=== PATIENT | female | born 1940 | race Caucasian/White ===

== ENCOUNTER 2016-07-31 18:39 | Inpatient (IN) | payer MEDICARE, OTHER ==
[2016-07-31 19:12] LABS: Hematocrit 40.8 % (37.0-47.0); Mean Cell Volume 88.1 fl (78-100); Mean Corpuscular Hemoglobin 28.1 pg (27-31); Mean Corpuscular Hgb Conc 31.9 g/dl (32-36); Mean Platelet Volume 10.1 fl (6.0-9.5); Platelet Count 163 K/mm3 (150-450); Red Blood Count 4.63 M/mm3 (4.2-5.4); Red Cell Distribution Width 14.2 % (11.5-14.0); White Blood Count 15.9 K/mm3 (4.0-10.5)
[2016-07-31 19:15] LABS: Total Cells Counted 100
[2016-07-31 19:26] LABS: Atypical (Reactive) Lymph 1 % (0-2); Immature Granulocyte 3 (0-1); Lymphocyte 2 % (20-51); Monocyte 9 % (0-9); Neutrophil 85 % (42-75); Neutrophil # 13.5 K/mm3 (1.3-6.0); Platelet Estimate Normal (NORMAL)
[2016-07-31 19:27] LABS: RBC Morphology Normal (NORMAL)
[2016-07-31 19:28] LABS: Troponin I 0.019 ng/ml (0.00-0.10)
[2016-07-31 19:30] LABS: Albumin * 3.9 gm/dl (3.4-5.0); Anion Gap 9.8 mmol/L (6.8-13.8); BUN/Creatinine Ratio 14.6 (9.0-21.6); Bilirubin, Total 0.8 mg/dL (0.0-1.1); Ca. Corrected For Albumin 9.4 mg/dL (8.4-10.2); Calcium * 9.6 mg/dL (7.9-10.9); Carbon Dioxide 31.1 mmol/L (24-32.6); Potassium 3.9 mmol/L (3.4-4.6); Total Protein 7.6 gm/dL (6.2-8.2)
--- OUTSIDE RECORDS SUMMARY | 2016-07-31 19:53 | XMS REPORT | Continuity of Care Document ---
:1940 Author Organization [facility] ([facility]) Address [address] [place] [address] Phone [phone] Care Team Providers Name Role Phone Umair Crawford Primary Care Provider [phone] Source Comments This disclosure is being made pursuant to the Care Everywhere program, applicable federal and state laws, and may not contain all informaitonavailable regarding this patient.[facility] ([facility]) Active Allergies and Adverse Reactions Allergen Noted Date Severity Reactions Comments Pneumococcal Vaccine 06/11/2011 Angioedema,Rash Current Medications Prescription Sig. Disp. Refills Start Date End Date Status lisinopril 40 mg tablet Take 40 mg by mouth Active daily. citalopram 40 mg tablet Take 40 mg by mouth Active daily. atorvastatin 20 mg Take 20 mg by mouth Active tablet every evening. levothyroxine 75 mcg Take 75 mcg by mouth Active tablet every morning before breakfast. diltiazem 180 mg ER Take 180 mg by mouth Active capsule daily. tiotropium (SPIRIVA) 18 Use 18 mcg by Active mcg inhalation capsule inhalation daily. albuterol 90 Use 2 Puffs by Active mcg/Actuation inhaler inhalation every 4 hours as needed. VIT C/VIT Take 1 tablet by Active E/LUTEIN/MIN/OMEGA-3 mouth daily. (OCUVITE PO) multivitamin tablet Take 1 tablet by Active mouth daily. sodium chloride 0.9 % Flush catheter with 300 mL 11 09/13/2015 Active injection syringe 10 ml normal saline 1 time daily, push only. budesonide-formoterol Use 2 Puffs by Active (SYMBICORT) 160-4.5 inhalation every mcg/Actuation inhaler morning. ciprofloxacin HCl 250 Take 250 mg by mouth Active mg tablet 2 times daily. lactobacillus Take 1 tablet by Active acidophilus (BACID) 1 mouth 2 times daily. billion-250 cell-mg tablet Active Problems Problem Noted Date S/P cholecystectomy 11/23/2015 Morbid obesity 09/14/2015 Calculous cholecystitis with obstruction 09/11/2015 Hip pain 06/22/2011 Other physical therapy 06/22/2011 COPD (chronic obstructive pulmonary disease) 06/21/2011 Obesity, unspecified 06/21/2011 Essential hypertension 06/21/2011 Depression 06/21/2011 Other and unspecified hyperlipidemia 06/21/2011 Resolved Problems Problem Noted Date Resolved Date Post-op pain 11/24/2015 11/24/2015 Right upper quadrant abdominal pain 11/24/2015 11/24/2015 Obstructive jaundice 09/11/2015 09/15/2015 Immunizations Name Dates Previously Given Next Due Influenza, unspecified 06/03/2011 Social History Tobacco Use Types Packs/Day Years Used Date Former Smoker Cigarettes 1.5 30 Quit: 06/23/1985 Smokeless Tobacco: Never Used Alcohol Use Drinks/Week oz/Week Comments No Last Filed Vital Signs Vital Sign Reading Time Taken Blood Pressure 121/54 11/24/2015 12:00 PM CDT Pulse 70 11/24/2015 12:00 PM CDT Temperature 37.6 C (99.7 F) 11/24/2015 12:00 PM CDT Respiratory Rate 16 11/24/2015 12:00 PM CDT Height 1.651 m (5' 5") 12/04/2015 3:19 PM CDT Weight 87.15 kg (192 lb 2.1 oz) 12/04/2015 3:19 PM CDT Body Mass Index 31.97 12/04/2015 3:19 PM CDT Oxygen Saturation 95% 11/24/2015 12:00 PM CDT Plan of Care Health Maintenance Due Date Last Done Comments Hepatitis B Vaccine (1 of 3 - Primary Series) 1940 Tdap Vaccine 1949 Lipid Disorder Screening 1956 Td Vaccine 1956 Mammogram 1978 Colonoscopy 05/10/1988 Zoster Vaccine 1998 Osteoporosis Screening (DXA Bone Density) 2003 Influenza Vaccine: Seasonal (#1) 01/22/2016 06/03/2011 Results from Last 3 Months Not on file
[2016-07-31 20:56] LABS: Urine Bilirubin Negative (NEGATIVE); Urine Ketone Negative (NEGATIVE); Urine Nitrite Negative (NEGATIVE); Urine Protein 15 mg/dL (NEGATIVE); Urine Specific Gravity 1.025 SP.GR. (1.005-1.010); Urine Urobilinogen Normal (NORMAL)
--- NOTE | 2016-07-31 20:58 | ERNOTE ---
Dyspnea - Date Date of Service: 07/31/16 - General Presenting Symptoms: difficulty of breathing Time Seen by Provider: 07/31/16 19:41 Source: family, RN notes reviewed, old records Exam Limitations: clinical condition - Immun/Allergies/Home Medications Immunizations: IMMUNIZATION HX Immunizations Up to Date No History of Influenza Vaccine Yes Hx Pneumococcal Vaccination No Allergies/Adverse Reactions: Allergies metoprolol Adverse Reaction (Intermediate, Verified 05/07/16 12:07) DIZZINESS, DYSPNEA pneumococcal vaccine [Pneumococcal Vaccine] Adverse Reaction (Mild, Verified 12:07) RASH AT INJECTION SITE Home Medications: HOME MEDICATIONS Citalopram Hydrobromide [Citalopram HBr] 40 mg PO DAILY 06/22/12 [Last Taken ] Lisinopril 40 mg PO DAILY 06/22/12 [Last Taken 10/08/15] Atorvastatin Calcium [Lipitor] 20 mg PO DAILY 11/09/14 [Last Taken 10/07/15 21: 00] Beta-Carotene(A) W-C , E/Min [Ocuvite] 1 tab PO DAILY 11/09/14 [Last Taken 10/07] Budesonide/Formoterol Fumarate [Symbicort 160-4.5 Mcg Inhaler] 2 puff IH BID [Last Taken 10/08/15] Levothyroxine Sodium [Synthroid] 75 mcg PO DAILY 11/09/14 [Last Taken 10/08/15] Multivitamins [Multivitamin Bianca] 1 cap PO DAILY 11/09/14 [Last Taken 10/08/15 ] Acetaminophen [Tylenol] 650 mg PO Q6H PRN #30 tablet 09/23/15 [Last Taken Unknown] Diltiazem HCl [Cardizem Cd] 120 mg PO DAILY #30 cap 05/07/16 [Last Taken Unknown ] Albuterol Sulfate [Ventolin HFA] 1 puff IH Q6H 07/31/16 [Last Taken Unknown] Amox Tr/Potassium Clavulanate [Augmentin 875-125 Tablet] 875 mg PO Q12H [Last Taken Unknown] Ipratropium/Albuterol Sulfate [Combivent Respimat Inhal [place]] 1 puff IH QID 02/06 [Last Taken Unknown] predniSONE [Prednisone] 20 mg PO DAILY 07/31/16 [Last Taken Unknown] - History of Present Illness Narrative: Carrol is a 76 year old female brought to the ED by ambulance for shortness of breath. She has had URI symptoms for approximately a week and a half. She was seen by her PCP last week for her symptoms. She was treated for a COPD exacerbation with Augmentin and prednisone. Her reports that she has not been herself today. She has been lethargic but will respond to some questions.. She has had diarrhea today, and began vomiting this afternoon. Treatment [employer]: paramedics, oxygen Initiating event: Reports: upper resp illness Frequency of episodes: Reports: occassional episodes Prior Treatment: Reports: recently seen, treated by physician, currently on antibiotics Review of Systems - Review of Systems Constitutional: Present: fatigue, malaise, decreased activity level EYE: Present: no symptoms reported ENT: Present: no symptoms reported Respiratory: Present: shortness of breath, cough Cardiology: Absent: chest pain, syncope, edema Gastrointestinal/Abdominal: Present: nausea, vomiting, diarrhea, eating less, drinking less Genitourinary: Absent: dysuria, hematuria Musculoskeletal: Present: no symptoms reported Skin: Absent: lesions, change in color Neurological: Absent: seizure, weakness Endocrine: Present: no symptoms reported Hematologic/Lymphatic: Absent: easy bruising, easy bleeding Psych: Present: no symptoms reported - Patient's Past Medical History Patient History - Medical: Depression, Fibromyalgia, Hypothyroidism Patient History - Cardiac/Respiratory: CHF, COPD, Hypertension, Hyperlipidemia Patient History - Cancer: Lung, Cervical Patient History - Surgical Procedures: Appendectomy, Cholecystectomy, Colonoscopy, Hysterectomy, Total Hip Replacement, Other - JOEL, Kyphoplasty, Left lung resection, submandibular gland removed Patient History - Other: None LMP (females 10-50): Menopausal - Family History Mother Family History - Medical: , No pertinent hx Family History - Cardiac/Respiratory: CHF Father Family History - Medical: , No pertinent hx Family History - Cardiac/Respiratory: No pertinent hx - Social History Living Situations: spouse Abuse History: No History of abuse Psych History: No pertinent hx Smoking Status: Former smoker Have you smoked in the past 12 months: No Alcohol Use: none Drug Use: none - Immunizations Immunizations Up to Date: No Hx Pneumococcal Vaccination: No - HX allergic reaction History of Influenza Vaccine: Yes Physical Exam - Physical Exam General Appearance: Present: no apparent distress, lethargic, obese Eye Exam: Normal inspection: bilateral, PERRL: bilateral Neck: Present: normal inspection, nontender, supple Respiratory: Present: no respiratory distress, no accessory muscle use, decreased breath sounds, rhonchi - scattered bilaterally Cardiovascular/Chest: Present: no murmur, normal peripheral pulses, irregularly irregular Gastrointestinal/Abdominal: Present: normal bowel sounds, nontender, nondistended, soft Extremity Exam: Present: normal inspection, non-tender, no edema Neurological Exam: Present: other - sleeps when not disturbed but will awaken and answer some questions appropriately Skin Exam: Present: normal color, warm/dry ED Progress - Results and Orders Patient's Lab Results:: I have reviewed the patient's lab results. - Vital Signs Patient's Vital Signs:: I have reviewed the patient's vital signs. Vital Signs: Vital Signs 07/31/16 07/31/16 07/31/16 18:42 19:01 20:19 Temperature 38.8 C H Pulse Rate 74 90 77 Respiratory 15 10 L 32 H Rate Blood Pressure 212/78 177/67 O2 Sat by Pulse 94 93 93 Oximetry 07/31/16 20:46 Temperature 39.0 C H Pulse Rate 76 Respiratory 16 Rate Blood Pressure 177/63 O2 Sat by Pulse 95 Oximetry - EKG EKG: atrial fibrillation EKG read: Reviewed by me - X-Ray X-Ray #1 X-Ray: chest Interpretation: Reviewed by me X-ray Comments: Technique: Chest Single View * Findings: Reidentified cardiomegaly. There is central vascular engorgement. There is cephalization. There is prominence of the interstitium compatible with edema. There are likely small bilateral pleural effusions. No pneumothorax. Osseous structures are intact. IMPRESSION: 1. Correlate for CHF/fluid overload. Electronically signed by Montana Larson M.D.. - Progress/Reassessment Chief Complaint: Dyspnea Plan - Plan Plan: Admission for observation discussed with Kaitlin Heller NP. Patient has significant fever and leukocytosis without a clear cause. She has been on prednisone for a COPD exacerbation, as well as Augmentin. Her chest xray does show some CHF. Her BNP is up to 1700 from 1500 on 07/24/16. UA is unremarkable. Negative influenza. Vomiting and diarrhea may be d/t a viral gastroenteritis as this has been prevalent in the community. LFT's are also elevated without a clear cause. Departure Clinical Impression: Vomiting and diarrhea, Fever of unknown origin - Departure Disposition: [facility] Condition: Fair
[2016-07-31 21:18] LABS: Urine Appearance Clear; Urine Bacteria TRACE; Urine Blood 10 /ul (NEGATIVE); Urine Color Yellow; Urine RBC None Seen /hpf (0-5); Urine WBC None Seen /hpf (0-5)
--- OUTSIDE RECORDS SUMMARY | 2016-07-31 21:53 | XMS REPORT | Continuity of Care Document ---
:1940 Author Organization [facility] ([facility]) Address [address] [place] [address] Phone [phone] Care Team Providers Name Role Phone Umair Crawford Primary Care Provider [phone] Source Comments This disclosure is being made pursuant to the Care Everywhere program, applicable federal and state laws, and may not contain all informaitonavailable regarding this patient.[facility] ([facility]) Active Allergies and Adverse Reactions Allergen [...]
[2016-07-31] MEDS ORDERED: NORMAL SALINE 1,000 ML IV PRN (22:53)
[2016-07-31] MEDS ORDERED: ONDANSETRON HCL/PF 2 MG/ML VIAL IV PRN (23:10)
[2016-07-31] MEDS ORDERED: LEVOFLOXACIN/D5W 750 MG/150 ML BAG IV SCH (23:30)
[2016-07-31] MEDS: ALBUTEROL SULFATE/IPRATROPIUM 3 ML NEBU IH SCH (23:36)
[2016-07-31] MEDS: ACETAMINOPHEN 325 MG TABLET PO PRN (23:50)
[2016-07-31] MEDS: METHYLPREDNISOLONE SOD SUCC 60 MG in WATER FOR INJ.,BACTERIOSTATIC 0 ML IV SCH (23:53)
--- NOTE | 2016-08-01 00:24 | HP ---
Chief Complaint - Chief Complaint Date of Service: 07/31/16 Time of Service: 23:39 Chief Complaint: 'AMS, Coughing, Fever'. Source of HPI- Pt; unreliable, Pt's spouse Niraj, ER provider report. History of Present Illness: Mrs. Bergeron is a 76-yr-old [facility] pt of Dr. Umair Crawford with a PMH of: COPD, Depression, Fibromylagia, HTN, HLD & Osteoathritis. History of illness is obtained from pt's Niraj & pt's EMR as pt appears to be cognitively impaired and cannot engage in a conversation to state how she feels. Pt was seen by Dr. Garcia on 07/24/16 with complaints of SOB, productive coughing & Wheezing that has gone on x 5 days. She was treated with Rocephin 1 gram and was discharged with Augmentin 875-125mg q 12 x 10 days and Prednisone 20mg x 10 days. Niraj states that the pt seemed to improve initially after taking the medication as prescribed, but her SOB has remained nearly the same. She is normally on 2 L of oxygen at night, but Niraj says that at least 3 times since being seen at the clinic, he has helped the pt wear the oxygen during the day due to visible shortness of breath. She has also had up to 3 loose stools daily for the last 3 days.Today at around noon, pt suddenly stopped being conversant and wanted to lay down in bed. At around 5.00 pm, Niraj states that the pt started coughing very hard and when he checked on her, she appeared very pale and felt hot to touch. She also vomited during that episode. He called the EMS and the pt was brought to the [facility] ER. During evaluation at the ED, the CXR had findings consistent with Pulmonary Edema. She was also febrile with a temp of 38.8 and had elevated WBC of 15,800 with a Left Shift. At the time of physical examination, pt appears to be visibly SOB, is noted to have Laboured breathing with Expiratory wheezing throughout the lung stark. She will need to be admitted inpatient for a minimum of 2 midnights or more due to failure to outpatient treatment for COPD exacerbation. - Patient's Past Medical History Patient History - Medical: Depression, Fibromyalgia, Hypothyroidism, Obesity, Osteoarthritis Patient History - Cardiac/Respiratory: CHF, COPD, Hypertension, Hyperlipidemia, Home O2 Use Patient History - Cancer: Lung, Cervical Patient History - Surgical Procedures: Appendectomy, Cataracts, Cholecystectomy , Colonoscopy, Hysterectomy, Total Hip Replacement, T & A, Other Patient History - Other: None LMP (females 10-50): Menopausal - Family History Mother Family History - Medical: , No pertinent hx Family History - Cardiac/Respiratory: CHF Family History - Cancer: No pertinent family hx Father Family History - Medical: , No pertinent hx Family History - Cardiac/Respiratory: No pertinent hx Family History - Cancer: Stomach - Social History Living Situations: spouse Abuse History: No History of abuse Psych History: Hx of Depression Smoking Status: Former smoker Have you smoked in the past 12 months: No Do you dip or chew tobacco: No Alcohol Use: none Drug Use: none - Immunizations Immunizations Up to Date: No Hx Pneumococcal Vaccination: No - HX allergic reaction History of Influenza Vaccine: Yes Review Of Systems (GEN) - Review of Systems Additional Comments: ROS unobtainable due to AMS. Immunizations: IMMUNIZATION HX Immunizations Up to Date No History of Influenza Vaccine Yes Hx Pneumococcal Vaccination No - HX allergic reaction Allergies/Adverse Reactions: Allergies Allergy/AdvReac Type Severity Reaction Status Date / Time metoprolol AdvReac Intermediate DIZZINESS, Verified 07/31/16 23:27 DYSPNEA pneumococcal vaccine AdvReac Mild RASH AT Verified 07/31/16 23:27 [Pneumococcal Vaccine] INJECTION SITE Home Medications: HOME MEDICATIONS Citalopram Hydrobromide [Citalopram HBr] 40 mg PO DAILY 06/22/12 [Last Taken ] Lisinopril 40 mg PO DAILY 06/22/12 [Last Taken 10/08/15] Atorvastatin Calcium [Lipitor] 20 mg PO DAILY 11/09/14 [Last Taken 10/07/15 21: 00] Beta-Carotene(A) W-C , E/Min [Ocuvite] 1 tab PO DAILY 11/09/14 [Last Taken 10/07] Budesonide/Formoterol Fumarate [Symbicort 160-4.5 Mcg Inhaler] 2 puff IH BID [Last Taken 10/08/15] Levothyroxine Sodium [Synthroid] 75 mcg PO DAILY 11/09/14 [Last Taken 10/08/15] Multivitamins [Multivitamin Bianca] 1 cap PO DAILY 11/09/14 [Last Taken 10/08/15 ] Acetaminophen [Tylenol] 650 mg PO Q6H PRN #30 tablet 09/23/15 [Last Taken Unknown] Albuterol Sulfate [Ventolin HFA] 1 puff IH Q6H 07/31/16 [Last Taken Unknown] Amox Tr/Potassium Clavulanate [Augmentin 875-125 Tablet] 875 mg PO Q12H [Last Taken Unknown] Diltiazem HCl [Cardizem Cd] 180 mg PO DAILY 07/31/16 [Last Taken Unknown] Ipratropium/Albuterol Sulfate [Combivent Respimat Inhal [place]] 1 puff IH QID 02/06 [Last Taken Unknown] predniSONE [Prednisone] 20 mg PO DAILY 07/31/16 [Last Taken Unknown] Exam - Exam Vital Signs: Vital Signs - Last Taken Temp 38 C H 07/31/16 22:53 Pulse 71 07/31/16 23:36 Resp 24 H 07/31/16 23:36 BP 178/68 07/31/16 22:53 Pulse Ox 96 07/31/16 23:36 Constitutional: Present: Alert, Mild distress, Other - unable to engage in conversation, answers to yes or no questions. ENT Exam: Present: normal ENT inspection, dry mucous membranes Eye Exam: bilateral eye: normal inspection, PERRL Neck: Present: full range of motion, supple, normal inspection Back Exam: Present: normal inspection Respiratory: Present: accessory muscle use, wheezing, expiration (prolonged) Cardiovascular/Chest: Present: regular rate, rhythm, no murmur Abdomen: Present: Normal bowel sounds, soft, nontender, high pitched bowel sounds /Rectal: Present: Exam deferred Extremity: Present: normal inspection, no pedal edema, no calf tenderness Skin Exam: Present: warm/dry, no cyanosis Lymphatic: Present: no adenopathy Neurologic: Present: alert, other - Flat affect, responds to name only and to "yes or no" Appearance: Present: impaired insight Eye contact: Present: other Thoughts: Present: no apparent hallucination Diagnostic Studies: Laboratory Results WBC 15.9 K/mm3 (4.0-10.5) H 07/31/16 19:05 RBC 4.63 M/mm3 (4.2-5.4) 07/31/16 19:05 Hgb 13.0 gm/dL (12.5-16.0) 07/31/16 19:05 Hct 40.8 % (37.0-47.0) 07/31/16 19:05 MCV 88.1 fl (78-100) 07/31/16 19:05 MCH 28.1 pg (27-31) 07/31/16 19:05 MCHC 31.9 g/dl (32-36) L 07/31/16 19:05 RDW 14.2 % (11.5-14.0) H 07/31/16 19:05 Plt Count 163 K/mm3 (150-450) 07/31/16 19:05 MPV 10.1 fl (6.0-9.5) H 07/31/16 19:05 Neutrophils % (Manual) 85 % (42-75) H 07/31/16 19:05 Lymphocytes % (Manual) 2 % (20-51) L 07/31/16 19:05 Monocytes % (Manual) 9 % (0-9) 07/31/16 19:05 Immature Granulocytes 3 (0-1) H 07/31/16 19:05 Neutrophils # (Manual) 13.5 K/mm3 (1.3-6.0) H 07/31/16 19:05 Lymphocytes # (Manual) 0.3 k/mm3 (1.5-3.5) L 07/31/16 19:05 Monocytes # (Manual) 1.4 k/mm3 (0.0-1.0) H 07/31/16 19:05 Atypic/Reactive Lymphs 1 % (0-2) 07/31/16 19:05 Platelet Estimate Normal (NORMAL) 07/31/16 19:05 RBC Morphology Normal (NORMAL) 07/31/16 19:05 Sodium 140 mmol/L (132-142) 07/31/16 19:05 Plasma Sodium 141 mmol/L (130-142) 07/31/16 19:05 Potassium 3.9 mmol/L (3.4-4.6) 07/31/16 19:05 Chloride 103 mmol/L (97-106) 07/31/16 19:05 Carbon Dioxide 31.1 mmol/L (24-32.6) 07/31/16 19:05 Anion Gap 9.8 mmol/L (6.8-13.8) 07/31/16 19:05 BUN 19 mg/dL (3-23) 07/31/16 19:05 Creatinine 1.30 mg/dL (0.4-1.4) 07/31/16 19:05 Est GFR (Non-Af Amer) 42 mL/min (60-130) L D 07/31/16 19:05 BUN/Creatinine Ratio 14.6 (9.0-21.6) 07/31/16 19:05 Random Glucose 133 mg/dL (70-110) H 07/31/16 19:05 Lactic Acid, Venous 1.6 mmol/L (0.4-2.0) 07/31/16 19:05 Calcium 9.6 mg/dL (7.9-10.9) 07/31/16 19:05 Calcium Adj for Albumin 9.4 mg/dL (8.4-10.2) 07/31/16 19:05 Total Bilirubin 0.8 mg/dL (0.0-1.1) 07/31/16 19:05 GGT 398 U/L (4-104) H 07/31/16 19:05 AST 306 U/L (0-48) H 07/31/16 19:05 ALT 757 U/L (19-67) H 07/31/16 19:05 Alkaline Phosphatase 183 U/L (50-170) H 07/31/16 19:05 Troponin I 0.019 ng/ml (0.00-0.10) 07/31/16 19:05 B-Natriuretic Peptide 1725 pg/mL (5-550) H 07/31/16 19:05 Total Protein 7.6 gm/dL (6.2-8.2) 07/31/16 19:05 Albumin 3.9 gm/dl (3.4-5.0) 07/31/16 19:05 Urine Color Yellow 07/31/16 19:57 Urine Appearance Clear 07/31/16 19:57 Urine pH 6.0 pH (5.0-7.0) 07/31/16 19:57 Ur Specific [place] 1.025 SP.GR. (1.005-1.010) 07/31/16 19:57 Urine Protein 15 mg/dL (NEGATIVE) H 07/31/16 19:57 Urine Glucose (UA) Negative mg/dL (NEGATIVE) 07/31/16 19:57 Urine Ketones Negative mg/dL (NEGATIVE) 07/31/16 19:57 Urine Blood 10 /ul (NEGATIVE) H 07/31/16 19:57 Urine Nitrate Negative (NEGATIVE) 07/31/16 19:57 Urine Bilirubin Negative mg/dl (NEGATIVE) 07/31/16 19:57 Prot Sulfosalicylic Acd Negative mg/dL (0) 07/31/16 19:57 Urine Urobilinogen Normal EU/dl (NORMAL) 07/31/16 19:57 Ur Leukocyte Esterase Negative /ul (NEGATIVE) 07/31/16 19:57 Urine RBC None seen /hpf (0-5) 07/31/16 19:57 Urine WBC None seen /hpf (0-5) 07/31/16 19:57 Ur Epithelial Cells None seen /hpf (0-5) 07/31/16 19:57 Urine Bacteria Trace (NONE) 07/31/16 19:57 Urine Culture Comments Culture to follow 07/31/16 19:57 Influenza Type A Ag Negative (NEGATIVE) 07/31/16 19:05 Influenza Type B Ag Negative (NEGATIVE) 07/31/16 19:05 Assessment/Plan - Assessment/Plan (1) COPD exacerbation Assessment: Mrs. Bergeron presented to the clinic on 07/24/16 with symptoms involving SOB, Coughing & Wheezing. She received treatment with Rocephin IM and was discharged on Amoxicilin, Prednisone. However, according to the report, the pt has not shown much of improvement with her SOB. The pt appears to have worsening symptoms COPD from her baseline (Dyspnea , Coughing). Will treat with scheduled Duonebs and IV Solumedrol due to the expiratory wheezing. Antibiotics are strongly recommended so will cover with Levaquin 750mg daily- Pharmacy to manage dose. Monitor labs in am. Problem: Acute (2) Elevated liver enzymes Assessment: Consider US of the liver & if normal, rule out infectious hepatitis. Problem: Acute (3) CHF (congestive heart failure) Assessment: Pt is showing clinical signs of HF; elevated BNP, SOB & Pulmonary edema on CXR. Consider Diuresis with Lasix, may need Echocardiogram also. Problem: Suspected (4) Altered mental state Problem: Acute (5) HTN (hypertension) Problem: Chronic Qualifiers: Hypertension type: essential hypertension Qualified Code(s): I10 - Essential (primary) hypertension (6) HLD (hyperlipidemia) Problem: Acute (7) HLD (hyperlipidemia) Problem: Chronic (8) Depression Problem: Chronic (9) Fibromyalgia Problem: Chronic
[2016-08-01] MEDS: ALBUTEROL SULFATE/IPRATROPIUM 3 ML NEBU IH SCH ×6 (02:09→23:43)
[2016-08-01] MEDS ORDERED: ACETAMINOPHEN 325 MG TABLET PO PRN (03:41)
[2016-08-01] MEDS: METHYLPREDNISOLONE SOD SUCC 60 MG in WATER FOR INJ.,BACTERIOSTATIC 0 ML IV SCH ×4 (04:53→23:57)
[2016-08-01 05:58] LABS: Hematocrit 37.7 % (37.0-47.0); Mean Cell Volume 87.1 fl (78-100); Mean Corpuscular Hemoglobin 27.7 pg (27-31); Mean Corpuscular Hgb Conc 31.8 g/dl (32-36); Mean Platelet Volume 10.9 fl (6.0-9.5); Platelet Count 158 K/mm3 (150-450); Red Blood Count 4.33 M/mm3 (4.2-5.4); Red Cell Distribution Width 14.2 % (11.5-14.0); White Blood Count 31.5 K/mm3 (4.0-10.5)
[2016-08-01 06:06] LABS: Total Cells Counted 100
[2016-08-01 06:12] LABS: Anion Gap 14.1 mmol/L (6.8-13.8); BUN/Creatinine Ratio 18.4 (9.0-21.6); Carbon Dioxide 27.1 mmol/L (24-32.6); Estimated Creat Clear 29.2; Potassium 4.2 mmol/L (3.4-4.6)
[2016-08-01 06:13] LABS: Neutrophil 79 % (42-75)
[2016-08-01 06:14] LABS: Band 9 % (0-2.0); Hypersegmented Polys 3+; Lymphocyte 3 % (20-51); Monocyte 9 % (0-9); Neutrophil # 24.9 K/mm3 (1.3-6.0); Platelet Estimate Normal (NORMAL); Rouleaux 2+; Toxic Granulation 2+
[2016-08-01 06:18] LABS: INR 1.11 INR (0.90-1.10); Prothrombin Time (Patient) 11.5 Seconds (9.4-11.4)
[2016-08-01 06:48] LABS: Albumin * 3.2 gm/dl (3.4-5.0); Bilirubin Direct 0.3 mg/dL (0.0-0.3); Bilirubin, Total 0.7 mg/dL (0.0-1.1); Bilirubin,Indirect 0.4 mg/dL (0.1-0.7); Total Protein 6.9 gm/dL (6.2-8.2)
[2016-08-01] MEDS: LEVOTHYROXINE SODIUM 75 MCG TABLET PO SCH (06:55)
[2016-08-01] MEDS ORDERED: FUROSEMIDE 10 MG/ML VIAL IV ONE (08:00)
[2016-08-01 08:17] LABS: Chol/HDL Risk Ratio 1.5 mg/dL (3.3-4.4)
--- NOTE | 2016-08-01 08:53 | PN ---
Subjective - Date and Time Seen Date: 08/01/16 Time: 08:42 Subjective Narrative: Patient is more alert this morning. She says she does not remember most of the day yesterday . Objective - Review of Systems Generalized/Overall Review: Reports: Weakness, Fever EENTM: Reports: No Symptoms Reported Respiratory: Reports: Cough, Shortness of Breath, Wheezing Cardiac: Denies: Chest Pain, Edema, Palpitations Abdominal: Reports: Nausea, Vomiting, Diarrhea Genitourinary Symptoms: Denies: Urgency, Frequency Neurological: Reports: Other - can't remember most of th day yesterday - Vitals Vitals: Last Vital Signs Temp 36.8 C 08/01/16 07:40 Pulse 73 08/01/16 07:40 Resp 24 H 08/01/16 07:40 BP 140/51 08/01/16 07:40 Pulse Ox 98 08/01/16 07:40 - Abnormal Lab Findings Abnormal Lab Findings: Abnormal Lab Results 08/01/16 08/01/16 08/01/16 Range/Units 05:36 05:36 05:36 WBC 31.5 H D (4.0-10.5) K/mm3 Hgb 12.0 L (12.5-16.0) gm/dL MCHC 31.8 L (32-36) g/dl RDW 14.2 H (11.5-14.0) % MPV 10.9 H (6.0-9.5) fl Neutrophils % (Manual) 79 H (42-75) % Band Neuts % (Manual) 9 H (0-2.0) % Lymphocytes % (Manual) 3 L (20-51) % Neutrophils # (Manual) 24.9 H (1.3-6.0) K/mm3 Lymphocytes # (Manual) 0.9 L (1.5-3.5) k/mm3 Monocytes # (Manual) 2.8 H (0.0-1.0) k/mm3 PT 11.5 H (9.4-11.4) Seconds INR (Anticoag Therapy) 1.11 H (0.90-1.10) INR Anion Gap 14.1 H (6.8-13.8) mmol/L Est GFR (Non-Af Amer) 49 L (60-130) mL/min Random Glucose 147 H (70-110) mg/dL AST (0-48) U/L ALT (19-67) U/L Albumin (3.4-5.0) gm/dl LDL Cholesterol (70-130) mg/dL HDL Cholesterol (40-60) mg/dL Cholesterol/HDL Ratio (3.3-4.4) mg/dL 08/01/16 08/01/16 Range/Units 05:36 05:36 WBC (4.0-10.5) K/mm3 Hgb (12.5-16.0) gm/dL MCHC (32-36) g/dl RDW (11.5-14.0) % MPV (6.0-9.5) fl Neutrophils % (Manual) (42-75) % Band Neuts % (Manual) (0-2.0) % Lymphocytes % (Manual) (20-51) % Neutrophils # (Manual) (1.3-6.0) K/mm3 Lymphocytes # (Manual) (1.5-3.5) k/mm3 Monocytes # (Manual) (0.0-1.0) k/mm3 PT (9.4-11.4) Seconds INR (Anticoag Therapy) (0.90-1.10) INR Anion Gap (6.8-13.8) mmol/L Est GFR (Non-Af Amer) (60-130) mL/min Random Glucose (70-110) mg/dL AST 160 H (0-48) U/L ALT 556 H (19-67) U/L Albumin 3.2 L (3.4-5.0) gm/dl LDL Cholesterol 45 L (70-130) mg/dL HDL Cholesterol 102 H (40-60) mg/dL Cholesterol/HDL Ratio 1.5 L (3.3-4.4) mg/dL - Exam Constitutional: Present: Alert, Oriented x3, Cooperative, Elderly ENT Exam: Present: hearing grossly normal Neck: Present: supple Breasts: Present: Exam deferred Respiratory: Present: decreased breath sounds, rales, wheezing - ocassional Cardiovascular/Chest: Present: regular rate, rhythm, no JVD, no murmur Abdomen: Present: Normal bowel sounds, soft, nontender, nondistended Extremity: Present: no calf tenderness, pedal edema - trace Assessment/Plan - Problems/Diagnosis (1) COPD with acute exacerbation Problem: Acute Narrative: acute bronchits vs beginning pneumonia. continue with IV antibiotics, IV solumedrol and breathing treatments. will do a follow up CXR in the morning (2) Acute CHF (congestive heart failure) Problem: Acute Qualifiers: Congestive heart failure type: unspecified congestive heart failure type Qualified Code(s): I50.9 - Heart failure, unspecified Narrative: likely from pulmonary strain. will get Echo . with cardiomegaly likely diastolic. continue with IV lasix. (3) Elevated liver enzymes Problem: Acute Narrative: passive congestion of liver vs infectious. will do US and ad hepatitis panel. possible MRCP if ducts are overly dilated than usual postcholecystectomy. (4) Altered mental state Problem: Acute Qualifiers: Altered mental status type: delirium Qualified Code(s): R41.0 - Disorientation, unspecified Narrative: likley due to delirium form fever r/o acute toxic encephalopathy from septicemia (5) Leukocytosis Problem: Acute Qualifiers: Leukocytosis type: bandemia Qualified Code(s): D72.825 - Bandemia Narrative: likely infectious- pulmonary vs hepatobiliary. US of the abdomen and probable CTS or MRCP pending results and results of repeat LFT's. repeat CXR in the morning. send stool for C.Diff. await BC results.
[2016-08-01] MEDS ORDERED: metroNIDAZOLE/SODIUM CHLORIDE 500 MG/100 ML BAG IV SCH (09:00)
[2016-08-01] MEDS: BETA-CAROTENE(A) W-C , E/MIN 1 TAB TABLET PO SCH (09:45)
[2016-08-01] MEDS: MULTIVITAMINS 1 CAP CAPSULE PO SCH (09:45)
[2016-08-01] MEDS: POTASSIUM CHLORIDE 20 MEQ TABLET.SA PO SCH ×2 (09:46→17:52)
[2016-08-01] MEDS: CITALOPRAM HYDROBROMIDE 20 MG TABLET PO SCH (09:50)
[2016-08-01] MEDS: LISINOPRIL 40 MG TABLET PO SCH (09:51)
[2016-08-01] MEDS: DILTIAZEM HCL 180 MG CAP.SR.24H PO SCH (09:52)
[2016-08-01] MEDS: ENOXAPARIN SODIUM 30 MG/0.3 ML SYRG SC SCH (09:53)
[2016-08-01] MEDS: metroNIDAZOLE/SODIUM CHLORIDE 500 MG/100 ML BAG IV SCH ×2 (10:21→17:53)
[2016-08-01 15:28] LABS: Amylase * 30 U/L (25-115); Lipase 133 U/L (73-393)
[2016-08-01] MEDS: ROSUVASTATIN CALCIUM 10 MG TABLET PO SCH (20:57)
[2016-08-02] MEDS: ALBUTEROL SULFATE/IPRATROPIUM 3 ML NEBU IH SCH ×6 (02:36→22:30)
[2016-08-02] MEDS: metroNIDAZOLE/SODIUM CHLORIDE 500 MG/100 ML BAG IV SCH ×3 (02:52→17:34)
[2016-08-02] MEDS: METHYLPREDNISOLONE SOD SUCC 60 MG in WATER FOR INJ.,BACTERIOSTATIC 0 ML IV SCH ×4 (04:52→23:07)
[2016-08-02 05:55] LABS: Hematocrit 37.4 % (37.0-47.0); Hemoglobin 11.9 gm/dL (12.5-16.0); Mean Corpuscular Hemoglobin 27.7 pg (27-31); Mean Corpuscular Hgb Conc 31.8 g/dl (32-36); Mean Platelet Volume 11.3 fl (6.0-9.5); Platelet Count 173 K/mm3 (150-450); Red Cell Distribution Width 14.6 % (11.5-14.0); White Blood Count 19.6 K/mm3 (4.0-10.5)
[2016-08-02 06:06] LABS: Total Cells Counted 100
[2016-08-02 06:22] LABS: Albumin * 3.3 gm/dl (3.4-5.0); Anion Gap 13.8 mmol/L (6.8-13.8); BUN/Creatinine Ratio 25.9 (9.0-21.6); Bilirubin, Total 0.5 mg/dL (0.0-1.1); Ca. Corrected For Albumin 9.6 mg/dL (8.4-10.2); Calcium * 9.4 mg/dL (7.9-10.9); Potassium 3.8 mmol/L (3.4-4.6); Total Protein 7.2 gm/dL (6.2-8.2)
[2016-08-02 06:24] LABS: Band 4 % (0-2.0); Lymphocyte 4 % (20-51); Monocyte 2 % (0-9); Neutrophil 90 % (42-75); Neutrophil # 17.6 K/mm3 (1.3-6.0); Platelet Estimate Normal (NORMAL); RBC Morphology Normal (NORMAL)
[2016-08-02] MEDS: LEVOTHYROXINE SODIUM 75 MCG TABLET PO SCH (07:07)
--- NOTE | 2016-08-02 08:21 | PN ---
Subjective - Date and Time Seen Date: 08/02/16 Time: 08:13 Subjective Narrative: She is feeling much better. At least she recognized mr she says. Objective - Review of Systems Generalized/Overall Review: Denies: Fever EENTM: Reports: No Symptoms Reported Respiratory: Reports: Cough, Shortness of Breath Cardiac: Denies: Chest Pain, Edema, Palpitations Abdominal: Denies: Nausea, Vomiting Genitourinary Symptoms: Denies: Urgency, Frequency Musculoskeletal Complaints: Reports: Joint Pain - Vitals Vitals: Last Vital Signs Temp 36.7 C 08/02/16 08:00 Pulse 74 08/02/16 08:00 Resp 20 08/02/16 08:00 BP 146/56 08/02/16 08:00 Pulse Ox 92 08/02/16 08:00 - Abnormal Lab Findings Abnormal Lab Findings: Abnormal Lab Results 08/02/16 08/02/16 Range/Units 05:29 05:29 WBC 19.6 H D (4.0-10.5) K/mm3 Hgb 11.9 L (12.5-16.0) gm/dL MCHC 31.8 L (32-36) g/dl RDW 14.6 H (11.5-14.0) % MPV 11.3 H (6.0-9.5) fl Neutrophils % (Manual) 90 H (42-75) % Band Neuts % (Manual) 4 H (0-2.0) % Lymphocytes % (Manual) 4 L (20-51) % Neutrophils # (Manual) 17.6 H (1.3-6.0) K/mm3 Lymphocytes # (Manual) 0.8 L (1.5-3.5) k/mm3 BUN 28 H (3-23) mg/dL Est GFR (Non-Af Amer) 52 L (60-130) mL/min BUN/Creatinine Ratio 25.9 H (9.0-21.6) Random Glucose 175 H (70-110) mg/dL AST 76 H (0-48) U/L ALT 407 H (19-67) U/L Albumin 3.3 L (3.4-5.0) gm/dl - Exam Constitutional: Present: Alert, Oriented x3, Cooperative ENT Exam: Present: hearing grossly normal Neck: Present: supple Breasts: Present: Exam deferred Respiratory: Present: decreased breath sounds, No rales, No wheezing Cardiovascular/Chest: Present: regular rate, rhythm, no JVD, no murmur Abdomen: Present: Normal bowel sounds, soft, nontender, nondistended Extremity: Present: no pedal edema, no calf tenderness Assessment/Plan - Problems/Diagnosis (1) COPD with acute exacerbation Problem: Acute Narrative: improved (2) Acute CHF (congestive heart failure) Problem: Acute Qualifiers: Congestive heart failure type: unspecified congestive heart failure type Qualified Code(s): I50.9 - Heart failure, unspecified Narrative: CXR with siginificant interval improvement. Echo showed normal EF, diastolic dysfunction, , mild LVH, LAE, mild MR/TR, RSVP of 42 , Pulmonary hyperternsion. (3) Elevated liver enzymes Problem: Acute Narrative: improving (4) Altered mental state Problem: Resolved Qualifiers: Altered mental status type: transient alteration of awareness Qualified Code(s): R40.4 - Transient alteration of awareness Narrative: due to acute toxic encephalopathy (5) Leukocytosis Problem: Acute Qualifiers: Leukocytosis type: bandemia Qualified Code(s): D72.825 - Bandemia Narrative: down to 19.6 from 31.5 (6) Bacteremia Problem: Acute Narrative: s/p septicemia. BC x 2 bottles growing Gram negative rods. source? pulmonary vs hepatobilary.
[2016-08-02] MEDS: CEFEPIME HCL 1 GM in DEXTROSE 5 % IN WATER 100 ML IV SCH ×4 (09:34→21:20)
[2016-08-02] MEDS: DILTIAZEM HCL 180 MG CAP.SR.24H PO SCH (09:34)
[2016-08-02] MEDS: MULTIVITAMINS 1 CAP CAPSULE PO SCH (09:35)
[2016-08-02] MEDS: POTASSIUM CHLORIDE 20 MEQ TABLET.SA PO SCH ×2 (09:35→17:35)
[2016-08-02] MEDS: ENOXAPARIN SODIUM 30 MG/0.3 ML SYRG SC SCH (09:35)
[2016-08-02] MEDS: CITALOPRAM HYDROBROMIDE 20 MG TABLET PO SCH (09:35)
[2016-08-02] MEDS: FUROSEMIDE 10 MG/ML VIAL IV SCH ×2 (09:35→21:21)
[2016-08-02] MEDS: BETA-CAROTENE(A) W-C , E/MIN 1 TAB TABLET PO SCH (09:35)
[2016-08-02] MEDS: LISINOPRIL 40 MG TABLET PO SCH (09:36)
--- NOTE | 2016-08-02 12:33 | ECHO ---
This report is available in the EMR
[2016-08-02] MEDS: ROSUVASTATIN CALCIUM 10 MG TABLET PO SCH (21:22)
[2016-08-03] MEDS: metroNIDAZOLE/SODIUM CHLORIDE 500 MG/100 ML BAG IV SCH ×2 (01:54→10:17)
[2016-08-03] MEDS: ALBUTEROL SULFATE/IPRATROPIUM 3 ML NEBU IH SCH ×6 (02:42→22:25)
[2016-08-03] MEDS: METHYLPREDNISOLONE SOD SUCC 60 MG in WATER FOR INJ.,BACTERIOSTATIC 0 ML IV SCH ×4 (04:35→22:22)
[2016-08-03] MEDS: LEVOTHYROXINE SODIUM 75 MCG TABLET PO SCH (06:34)
--- NOTE | 2016-08-03 07:14 | PN ---
Subjective - Date and Time Seen Date: 08/03/16 Time: 07:11 Subjective Narrative: Ms. Bergeron is awake and in no distress this morning. Feels better that when she came. Lab reports blood culture growing Pseusomonas Aerunigosa. No other acute events overnight according to nursing. Objective - Vitals Vitals: Last Vital Signs Temp 37.0 C 08/03/16 01:55 Pulse 72 08/03/16 06:26 Resp 20 08/03/16 06:26 BP 166/58 08/03/16 01:55 Pulse Ox 95 08/03/16 06:19 - Exam Constitutional: Present: Alert, Oriented x3, No distress ENT Exam: Present: normal ENT inspection, hearing grossly normal. Absent: nasal congestion, nasal drainage Neck: Present: full range of motion, supple, normal inspection Breasts: Present: Exam deferred Respiratory: Present: no accessory muscle use, No wheezing Cardiovascular/Chest: Present: normal peripheral pulses, regular rate, rhythm, no murmur Abdomen: Present: Normal bowel sounds, soft, nontender /Rectal: Present: Exam deferred Extremity: Present: non-tender, normal inspection, no pedal edema Skin Exam: Present: warm/dry, no cyanosis Lymphatic: Present: no adenopathy Neurologic: Present: alert, oriented x 3, other - Hand tremors. Absent: dizzy/ light-headedness Appearance: Present: appropriate appearance, appropriate insight Eye contact: Present: cooperative, good eye contact, normal speech Thoughts: Present: normal thought pattern, no apparent hallucination Assessment/Plan - Problems/Diagnosis (1) COPD exacerbation Problem: Acute Narrative: acute bronchits vs beginning pneumonia. Continue with IV antibiotics, No wheezing this morning. Consider stopping the Solumedrol and continue breathing treatments. Repeat CXR shows improvement of pulm Edema. (2) Elevated liver enzymes Problem: Acute Narrative: Values trending down. Passive congestion of liver vs infectious. US showed mildly dilated extrahepatic CBD but otherwise normal appearing liver. Awaiting hepatitis panel to see if its infection related. (3) CHF (congestive heart failure) Problem: Suspected Narrative: Was diuresed with Lasix. CXR with significant interval improvement on 08/02/16. Echo showed normal EF, diastolic dysfunction,mild LVH, LAE, mild MR/TR, RSVP of 42 , Pulmonary hyperternsion. (4) Altered mental state Problem: Resolved Qualifiers: Altered mental status type: delirium Qualified Code(s): R41.0 - Disorientation, unspecified Narrative: likely due to delirium form fever r/o acute toxic encephalopathy from septicemia. Much more awake & alert and coherent now. (5) HTN (hypertension) Problem: Chronic Qualifiers: Hypertension type: essential hypertension Qualified Code(s): I10 - Essential (primary) hypertension (6) HLD (hyperlipidemia) Problem: Acute (7) HLD (hyperlipidemia) Problem: Chronic (8) Depression Problem: Chronic (9) Fibromyalgia Problem: Chronic
[2016-08-03] MEDS: CITALOPRAM HYDROBROMIDE 20 MG TABLET PO SCH (09:07)
[2016-08-03] MEDS: CEFEPIME HCL 1 GM in DEXTROSE 5 % IN WATER 100 ML IV SCH ×2 (09:07)
[2016-08-03] MEDS: DILTIAZEM HCL 180 MG CAP.SR.24H PO SCH (09:07)
[2016-08-03] MEDS: POTASSIUM CHLORIDE 20 MEQ TABLET.SA PO SCH ×2 (09:08→16:38)
[2016-08-03] MEDS: ENOXAPARIN SODIUM 30 MG/0.3 ML SYRG SC SCH (09:08)
[2016-08-03] MEDS: FUROSEMIDE 10 MG/ML VIAL IV SCH ×2 (09:08→22:11)
[2016-08-03] MEDS: BETA-CAROTENE(A) W-C , E/MIN 1 TAB TABLET PO SCH (09:08)
[2016-08-03] MEDS: LISINOPRIL 40 MG TABLET PO SCH (09:08)
[2016-08-03] MEDS: MULTIVITAMINS 1 CAP CAPSULE PO SCH (09:08)
[2016-08-03 10:59] LABS: Hematocrit 40.5 % (37.0-47.0); Hemoglobin 12.8 gm/dL (12.5-16.0); Mean Cell Volume 87.3 fl (78-100); Mean Corpuscular Hemoglobin 27.6 pg (27-31); Mean Corpuscular Hgb Conc 31.6 g/dl (32-36); Mean Platelet Volume 11.4 fl (6.0-9.5); Platelet Count 199 K/mm3 (150-450); Red Blood Count 4.64 M/mm3 (4.2-5.4); Red Cell Distribution Width 14.5 % (11.5-14.0); White Blood Count 13.5 K/mm3 (4.0-10.5)
[2016-08-03 11:00] LABS: Total Cells Counted 100
[2016-08-03 11:12] LABS: Albumin * 3.6 gm/dl (3.4-5.0); Anion Gap 14.5 mmol/L (6.8-13.8); BUN/Creatinine Ratio 25.6 (9.0-21.6); Band 2 % (0-2.0); Bilirubin, Total 0.4 mg/dL (0.0-1.1); Carbon Dioxide 30.5 mmol/L (24-32.6); Lymphocyte 2 % (20-51); Monocyte 7 % (0-9); Neutrophil 89 % (42-75); Platelet Estimate Normal (NORMAL); RBC Morphology Normal (NORMAL); Total Protein 7.7 gm/dL (6.2-8.2)
[2016-08-03] MEDS: MEROPENEM 1 GM in NORMAL SALINE 100 ML IV SCH ×2 (11:18→22:11)
[2016-08-03] MEDS: ROSUVASTATIN CALCIUM 10 MG TABLET PO SCH (21:11)
[2016-08-04] MEDS: ALBUTEROL SULFATE/IPRATROPIUM 3 ML NEBU IH SCH ×4 (02:33→14:49)
[2016-08-04] MEDS: METHYLPREDNISOLONE SOD SUCC 60 MG in WATER FOR INJ.,BACTERIOSTATIC 0 ML IV SCH (05:17)
--- NOTE | 2016-08-04 06:26 | PN ---
Subjective - Date and Time Seen Date: 08/04/16 Time: 06:21 Subjective Narrative: Mrs. Bergeron is awake and in no distress. States she feels better than when she came. Denies SOB. No acute events overnight according to nursing. Objective - Vitals Vitals: Last Vital Signs Temp 36.7 C 08/04/16 01:58 Pulse 89 08/04/16 06:16 Resp 18 08/04/16 06:16 BP 152/61 08/04/16 01:58 Pulse Ox 95 08/04/16 06:06 - Abnormal Lab Findings Abnormal Lab Findings: Abnormal Lab Results 08/03/16 08/03/16 Range/Units 10:51 10:51 WBC 13.5 H D (4.0-10.5) K/mm3 MCHC 31.6 L (32-36) g/dl RDW 14.5 H (11.5-14.0) % MPV 11.4 H (6.0-9.5) fl Neutrophils % (Manual) 89 H (42-75) % Lymphocytes % (Manual) 2 L (20-51) % Neutrophils # (Manual) 12.0 H (1.3-6.0) K/mm3 Lymphocytes # (Manual) 0.3 L (1.5-3.5) k/mm3 Plasma Sodium 144 H (130-142) mmol/L Anion Gap 14.5 H (6.8-13.8) mmol/L BUN 32 H (3-23) mg/dL Est GFR (Non-Af Amer) 44 L (60-130) mL/min BUN/Creatinine Ratio 25.6 H (9.0-21.6) Random Glucose 241 H D (70-110) mg/dL ALT 308 H (19-67) U/L - Exam Constitutional: Present: Alert, Oriented x3, Cooperative, No distress ENT Exam: Present: normal ENT inspection, hearing grossly normal. Absent: nasal congestion, nasal drainage Neck: Present: full range of motion, supple, normal inspection Breasts: Present: Exam deferred Respiratory: Present: lungs clear, no accessory muscle use, No wheezing Cardiovascular/Chest: Present: normal peripheral pulses, regular rate, rhythm, no murmur Abdomen: Present: Normal bowel sounds, soft, nontender /Rectal: Present: Exam deferred Extremity: Present: normal range of motion, non-tender, normal inspection, no pedal edema Skin Exam: Present: warm/dry, no cyanosis Neurologic: Present: no motor/sensory deficits, alert, oriented x 3. Absent: dizzy/light-headedness Appearance: Present: appropriate appearance, appropriate insight Thoughts: Present: normal thought pattern, no apparent hallucination Assessment/Plan - Problems/Diagnosis (1) COPD exacerbation Problem: Acute Narrative: Acute bronchits vs beginning pneumonia. Continue with IV antibiotics, No wheezing this morning. Continue Nebulizer treatments, stop Solumedrol, switch to oral Prednisone. CBC in am. (2) Elevated liver enzymes Problem: Acute Narrative: Values trending down. Passive congestion of liver vs infectious. US showed mildly dilated extrahepatic CBD but otherwise normal appearing liver. Awaiting hepatitis panel to see if its infection related. (3) CHF (congestive heart failure) Problem: Suspected Narrative: CXR showed pulmonary congestion on DOA. Received Lasix and has been on daily doses. Repeat CXR on 08/02 showed improvement/resolution of pulm Edema. Will discontinue Lasix & kcl. Echo showed normal EF, diastolic dysfunction,mild LVH, LAE, mild MR/TR, RSVP of 42 , Pulmonary hyperternsion. (4) Septicemia, Pseudomonas Problem: Acute Narrative: Blood cultures showed growth of Pseudomonas Aerunigosa. Antibiotic changed to Meropenem. (5) Altered mental state Problem: Resolved Qualifiers: Altered mental status type: delirium Qualified Code(s): R41.0 - Disorientation, unspecified Narrative: Much more improved in comparison to day of admission. was likely due to delirium form fever r/o acute toxic encephalopathy from septicemia. (6) HLD (hyperlipidemia) Problem: Acute (7) HLD (hyperlipidemia) Problem: Chronic (8) Depression Problem: Chronic (9) Fibromyalgia Problem: Chronic (10) HTN (hypertension) Problem: Chronic Qualifiers: Hypertension type: essential hypertension Qualified Code(s): I10 - Essential (primary) hypertension
[2016-08-04] MEDS: LEVOTHYROXINE SODIUM 75 MCG TABLET PO SCH (07:14)
[2016-08-04] MEDS: ENOXAPARIN SODIUM 30 MG/0.3 ML SYRG SC SCH (09:34)
[2016-08-04] MEDS: DILTIAZEM HCL 180 MG CAP.SR.24H PO SCH (09:34)
[2016-08-04] MEDS: CITALOPRAM HYDROBROMIDE 20 MG TABLET PO SCH (09:34)
[2016-08-04] MEDS: predniSONE 20 MG TABLET PO SCH (09:34)
[2016-08-04] MEDS: MULTIVITAMINS 1 CAP CAPSULE PO SCH (09:34)
[2016-08-04] MEDS: BETA-CAROTENE(A) W-C , E/MIN 1 TAB TABLET PO SCH (09:34)
[2016-08-04] MEDS: MEROPENEM 1 GM in NORMAL SALINE 100 ML IV SCH ×2 (09:35→21:11)
[2016-08-04] MEDS: LISINOPRIL 40 MG TABLET PO SCH (09:35)
[2016-08-04 10:20] LABS: Hematocrit 38.6 % (37.0-47.0); Hemoglobin 12.3 gm/dL (12.5-16.0); Mean Cell Volume 86.5 fl (78-100); Mean Corpuscular Hemoglobin 27.6 pg (27-31); Mean Corpuscular Hgb Conc 31.9 g/dl (32-36); Mean Platelet Volume 11.3 fl (6.0-9.5); Platelet Count 201 K/mm3 (150-450); Red Blood Count 4.46 M/mm3 (4.2-5.4); Red Cell Distribution Width 14.3 % (11.5-14.0); White Blood Count 7.6 K/mm3 (4.0-10.5)
[2016-08-04 10:31] LABS: Total Cells Counted 100
[2016-08-04 10:32] LABS: Albumin * 3.2 gm/dl (3.4-5.0); Anion Gap 14.5 mmol/L (6.8-13.8); BUN/Creatinine Ratio 27.6 (9.0-21.6); Bilirubin, Total 0.4 mg/dL (0.0-1.1); Ca. Corrected For Albumin 9.6 mg/dL (8.4-10.2); Calcium * 9.3 mg/dL (7.9-10.9); Carbon Dioxide 28.3 mmol/L (24-32.6); Potassium 3.8 mmol/L (3.4-4.6); Total Protein 6.8 gm/dL (6.2-8.2)
[2016-08-04 10:45] LABS: Atypical (Reactive) Lymph 6 % (0-2); Band 2 % (0-2.0); Lymphocyte 9 % (20-51); Monocyte 11 % (0-9); Neutrophil 72 % (42-75); Neutrophil # 5.5 K/mm3 (1.3-6.0)
[2016-08-04 10:46] LABS: Platelet Estimate Normal (NORMAL); RBC Morphology Normal (NORMAL)
[2016-08-04] MEDS: ACETAMINOPHEN 325 MG TABLET PO PRN (14:13)
[2016-08-04] MEDS ORDERED: DILTIAZEM HCL 5 MG/ML VIAL IV ONE ×3 (14:17→14:21)
[2016-08-04] MEDS ORDERED: DILTIAZEM HCL 60 MG TABLET PO ONE (16:04)
[2016-08-04] MEDS: ROSUVASTATIN CALCIUM 10 MG TABLET PO SCH (21:06)
[2016-08-05] MEDS: ALBUTEROL SULFATE/IPRATROPIUM 3 ML NEBU IH SCH ×5 (00:02→18:38)
[2016-08-05 05:46] LABS: Hemoglobin 12.6 gm/dL (12.5-16.0); Mean Cell Volume 85.3 fl (78-100); Mean Corpuscular Hemoglobin 27.6 pg (27-31); Mean Corpuscular Hgb Conc 32.3 g/dl (32-36); Mean Platelet Volume 10.3 fl (6.0-9.5); Neutrophil # 5.1 K/mm3 (1.3-6.0); Neutrophil % 60.9 % (42-75.0); Platelet Count 185 K/mm3 (150-450); Red Blood Count 4.57 M/mm3 (4.2-5.4); Red Cell Distribution Width 13.9 % (11.5-14.0); White Blood Count 8.4 K/mm3 (4.0-10.5)
[2016-08-05 05:58] LABS: Anion Gap 11.1 mmol/L (6.8-13.8); BUN/Creatinine Ratio 40.7 (9.0-21.6); Calcium * 9.2 mg/dL (7.9-10.9); Carbon Dioxide 29.6 mmol/L (24-32.6); Estimated Creat Clear 41.1; Potassium 3.7 mmol/L (3.4-4.6)
[2016-08-05] MEDS: LEVOTHYROXINE SODIUM 75 MCG TABLET PO SCH (06:32)
[2016-08-05] MEDS: BETA-CAROTENE(A) W-C , E/MIN 1 TAB TABLET PO SCH (09:34)
[2016-08-05] MEDS: ENOXAPARIN SODIUM 30 MG/0.3 ML SYRG SC SCH (09:34)
[2016-08-05] MEDS: LISINOPRIL 40 MG TABLET PO SCH (09:34)
[2016-08-05] MEDS: DILTIAZEM HCL 180 MG CAP.SR.24H PO SCH (09:34)
[2016-08-05] MEDS: CITALOPRAM HYDROBROMIDE 20 MG TABLET PO SCH (09:34)
[2016-08-05] MEDS: predniSONE 20 MG TABLET PO SCH (09:34)
[2016-08-05] MEDS: MULTIVITAMINS 1 CAP CAPSULE PO SCH (09:34)
[2016-08-05] MEDS: MEROPENEM 1 GM in NORMAL SALINE 100 ML IV SCH ×2 (09:35→21:12)
[2016-08-05] MEDS: SACCHAROMYCES BOULARDII 250 MG CAPSULE PO SCH ×2 (11:37→20:46)
[2016-08-05] MEDS: ROSUVASTATIN CALCIUM 10 MG TABLET PO SCH (20:46)
[2016-08-06] MEDS: ALBUTEROL SULFATE/IPRATROPIUM 3 ML NEBU IH SCH ×4 (00:17→18:26)
[2016-08-06] MEDS: LEVOTHYROXINE SODIUM 75 MCG TABLET PO SCH (06:45)
[2016-08-06] MEDS: BETA-CAROTENE(A) W-C , E/MIN 1 TAB TABLET PO SCH (09:18)
[2016-08-06] MEDS: LISINOPRIL 40 MG TABLET PO SCH (09:18)
[2016-08-06] MEDS: MULTIVITAMINS 1 CAP CAPSULE PO SCH (09:22)
[2016-08-06] MEDS: SACCHAROMYCES BOULARDII 250 MG CAPSULE PO SCH ×2 (09:22→20:41)
[2016-08-06] MEDS: predniSONE 20 MG TABLET PO SCH (09:22)
[2016-08-06] MEDS: ENOXAPARIN SODIUM 30 MG/0.3 ML SYRG SC SCH (09:22)
[2016-08-06] MEDS: CITALOPRAM HYDROBROMIDE 20 MG TABLET PO SCH (09:22)
[2016-08-06] MEDS: MEROPENEM 1 GM in NORMAL SALINE 100 ML IV SCH ×2 (09:24→22:38)
[2016-08-06] MEDS: DILTIAZEM HCL 180 MG CAP.SR.24H PO SCH (09:30)
[2016-08-06 10:08] LABS: Hemoglobin 12.6 gm/dL (12.5-16.0); Mean Cell Volume 87.3 fl (78-100); Mean Corpuscular Hemoglobin 27.5 pg (27-31); Mean Corpuscular Hgb Conc 31.5 g/dl (32-36); Mean Platelet Volume 12.1 fl (6.0-9.5); Platelet Count 106 K/mm3 (150-450); Red Blood Count 4.58 M/mm3 (4.2-5.4)
[2016-08-06 10:13] LABS: Total Cells Counted 100
[2016-08-06 10:33] LABS: Albumin * 2.8 gm/dl (3.4-5.0); Anion Gap 12.4 mmol/L (6.8-13.8); BUN/Creatinine Ratio 34.9 (9.0-21.6); Bilirubin, Total 0.3 mg/dL (0.0-1.1); Ca. Corrected For Albumin 9.5 mg/dL (8.4-10.2); Calcium * 8.9 mg/dL (7.9-10.9); Carbon Dioxide 26.9 mmol/L (24-32.6); Potassium 4.3 mmol/L (3.4-4.6); TSH * 1.191 uIU/mL (0.358-3.74); Total Protein 5.8 gm/dL (6.2-8.2)
[2016-08-06 10:45] LABS: Atypical (Reactive) Lymph 8 % (0-2); Band 1 % (0-2.0); Immature Granulocyte 4 (0-1); Lymphocyte 23 % (20-51); Monocyte 5 % (0-9); Neutrophil 59 % (42-75); Neutrophil # 6.5 K/mm3 (1.3-6.0); Platelet Estimate Decreased (NORMAL); RBC Morphology Normal (NORMAL)
[2016-08-06 15:56] LABS: Hepatitis A IgM Antibody NON-REACTIVE
[2016-08-06 15:57] LABS: Hepatitis B Surface Antigen NON-REACTIVE
[2016-08-06 15:58] LABS: Hepatitis C Antibody NON-REACTIVE
[2016-08-06] MEDS: ROSUVASTATIN CALCIUM 10 MG TABLET PO SCH (20:41)
--- NOTE | 2016-08-06 23:54 | PN ---
Subjective - Date and Time Seen Date: 08/05/16 Time: 12:56 Subjective Narrative: Doing well. No concerns. Denies shortness of breath, fever, chills, nausea, or vomiting. Objective - Vitals Vitals: Last Vital Signs Temp 36.8 C 08/05/16 9:00 Pulse 51 08/05/16 9:00 Resp 18 08/05/16 9:00 BP 135/58 08/05/16 9:00 Pulse Ox 95 08/05/16 9:00 - Abnormal Lab Findings Abnormal Lab Findings: Abnormal Lab Results - Exam Constitutional: Present: Alert, Oriented x3, Cooperative ENT Exam: Present: hearing grossly normal Respiratory: Present: lungs clear, normal breath sounds Cardiovascular/Chest: Present: no murmur, irregularly irregular Abdomen: Present: Normal bowel sounds, soft, nontender, nondistended Skin Exam: Present: normal color, warm/dry, no cyanosis Assessment/Plan - Problems/Diagnosis (1) Septicemia, Pseudomonas Problem: Resolved Narrative: Will need two weeks of IV merrem based on two positive blood cultures and their sensitivities. She is clinically doing well. She has had episodes of atrial fibrillation with RVR at times. Needs to be monitored on telemetry at this time and we are unable to discharge and admit to skilled for IV antibiotics if telemetry is needed. Due to the recurrent episodes of atrial fibrillation with RVR will need to monitor further. Suspect these episodes are from the stress of her current illness. (2) COPD with acute exacerbation Problem: Acute (3) Atrial fibrillation Problem: Chronic Qualifiers: (4) Acute CHF (congestive heart failure) Problem: Resolved Qualifiers: Congestive heart failure type: diastolic Qualified Code(s): I50.31 - Acute diastolic (congestive) heart failure (5) Atrial fibrillation with RVR Problem: Resolved
--- NOTE | 2016-08-06 23:54 | PN ---
Subjective - Date and Time Seen Date: 08/06/16 Time: 16:52 Subjective Narrative: Doing well. Reports no concerns. Denies f/c/n/v. Had an episode of afib with RVR last night with heart rate up to 130. Continues to jump in and out of atrial fibrillation. Objective - Vitals Vitals: Last Vital Signs Temp 37.1 C 08/06/16 18:51 Pulse 86 08/06/16 20:00 Resp 20 08/06/16 18:51 BP 164/61 08/06/16 18:51 Pulse Ox 94 08/06/16 18:51 - Abnormal Lab Findings Abnormal Lab Findings: Abnormal Lab Results 08/06/16 08/06/16 Range/Units 10:00 10:00 WBC 11.0 H D (4.0-10.5) K/mm3 MCHC 31.5 L (32-36) g/dl Plt Count 106 L (150-450) K/mm3 MPV 12.1 H (6.0-9.5) fl Immature Granulocytes 4 H (0-1) Neutrophils # (Manual) 6.5 H (1.3-6.0) K/mm3 Atypic/Reactive Lymphs 8 H (0-2) % Platelet Estimate Decreased L (NORMAL) BUN 29 H (3-23) mg/dL BUN/Creatinine Ratio 34.9 H (9.0-21.6) Random Glucose 147 H (70-110) mg/dL ALT 158 H (19-67) U/L Total Protein 5.8 L (6.2-8.2) gm/dL Albumin 2.8 L (3.4-5.0) gm/dl - Exam Constitutional: Present: Alert, Oriented x3, Cooperative ENT Exam: Present: hearing grossly normal Respiratory: Present: lungs clear, normal breath sounds Cardiovascular/Chest: Present: systolic murmur - 2+, irregularly irregular Abdomen: Present: Normal bowel sounds, soft, nontender, nondistended, no rebound tenderness Skin Exam: Present: normal color, warm/dry, no cyanosis Assessment/Plan - Problems/Diagnosis (1) Septicemia, Pseudomonas Problem: Acute Narrative: Needs 2 weeks of IV antibiotics as only IV antibiotics will treat this pseudomonas strain. Will look at getting PIC line tomorrow. Continue Merrem for a total of 2 weeks starting from 08/03/16. (2) Atrial fibrillation with RVR Problem: Acute Narrative: Needs monitoring on telemetry due to recurrent atrial fibrillation with RVR. Unable to skill patient for IV antibiotics when needing telemetry.
[2016-08-07] MEDS: ALBUTEROL SULFATE/IPRATROPIUM 3 ML NEBU IH SCH ×4 (00:27→18:50)
[2016-08-07 06:29] LABS: Hemoglobin 12.4 gm/dL (12.5-16.0); Mean Cell Volume 87.1 fl (78-100); Mean Corpuscular Hemoglobin 27.7 pg (27-31); Mean Corpuscular Hgb Conc 31.8 g/dl (32-36); Mean Platelet Volume 10.6 fl (6.0-9.5); Platelet Count 195 K/mm3 (150-450); Red Blood Count 4.48 M/mm3 (4.2-5.4); White Blood Count 11.8 K/mm3 (4.0-10.5)
[2016-08-07 06:32] LABS: Total Cells Counted 100
[2016-08-07 06:38] LABS: BUN/Creatinine Ratio 37.8 (9.0-21.6); Calcium * 9.2 mg/dL (7.9-10.9); Estimated Creat Clear 40.6
[2016-08-07 07:02] LABS: Atypical (Reactive) Lymph 2 % (0-2); Band 3 % (0-2.0); Immature Granulocyte 9 (0-1); Lymphocyte 24 % (20-51); Monocyte 10 % (0-9); Neutrophil 52 % (42-75); Neutrophil # 6.1 K/mm3 (1.3-6.0); Platelet Estimate Normal (NORMAL)
[2016-08-07] MEDS: LEVOTHYROXINE SODIUM 75 MCG TABLET PO SCH (07:09)
[2016-08-07] MEDS: LISINOPRIL 40 MG TABLET PO SCH (08:38)
[2016-08-07] MEDS: CITALOPRAM HYDROBROMIDE 20 MG TABLET PO SCH (08:38)
[2016-08-07] MEDS: ENOXAPARIN SODIUM 30 MG/0.3 ML SYRG SC SCH (08:39)
[2016-08-07] MEDS: DILTIAZEM HCL 180 MG CAP.SR.24H PO SCH (08:39)
[2016-08-07] MEDS: SACCHAROMYCES BOULARDII 250 MG CAPSULE PO SCH ×2 (08:39→21:04)
[2016-08-07] MEDS: MULTIVITAMINS 1 CAP CAPSULE PO SCH (08:39)
[2016-08-07] MEDS: BETA-CAROTENE(A) W-C , E/MIN 1 TAB TABLET PO SCH (08:39)
[2016-08-07] MEDS: MEROPENEM 1 GM in NORMAL SALINE 100 ML IV SCH ×2 (09:50→21:04)
--- NOTE | 2016-08-07 12:35 | OR ---
Anesthesia Procedure Note - Anesthesia Procedure Note Narrative: Vital Signs - Last Taken Temp 37.0 C 08/07/16 09:00 Pulse 87 08/07/16 09:00 Resp 16 08/07/16 09:00 BP 154/57 08/07/16 09:00 Pulse Ox 95 08/07/16 09:00 O2 Oxygen Delivery Method Room Air 08/07/16 12:29 ANESTHESIA PROCEDURE NOTE Date of procedure: 08/07/2016. Time of procedure: 1100 to 12:15. Performed by: Sam Mendes CRNA Business Support Coordinator: None . Preprocedure diagnosis: Need for long-term venous access. Post procedure diagnosis: Same. Procedure: PICC line placement Indications: Venous access for blood draws. Findings: Ultrasound-guided Venous access attempted in bilateral antecubital fossa and bilateral cephalic veins without success. Procedure aborted Dr. Hutchison notified EBL: Minimal. Fluids: N/A. Specimen: N/A. Post procedure condition: The patient tolerated the procedure well. No complications were noted. Thank you for this consultation Sam Mendes CRNA
[2016-08-07] MEDS: ROSUVASTATIN CALCIUM 10 MG TABLET PO SCH (21:05)
[2016-08-08] MEDS: ALBUTEROL SULFATE/IPRATROPIUM 3 ML NEBU IH SCH ×4 (00:30→18:35)
[2016-08-08] MEDS: LEVOTHYROXINE SODIUM 75 MCG TABLET PO SCH (06:23)
[2016-08-08] MEDS: MULTIVITAMINS 1 CAP CAPSULE PO SCH (08:35)
[2016-08-08] MEDS: CITALOPRAM HYDROBROMIDE 20 MG TABLET PO SCH (08:35)
[2016-08-08] MEDS: SACCHAROMYCES BOULARDII 250 MG CAPSULE PO SCH ×2 (08:35→21:01)
[2016-08-08] MEDS: BETA-CAROTENE(A) W-C , E/MIN 1 TAB TABLET PO SCH (08:35)
[2016-08-08] MEDS: ENOXAPARIN SODIUM 30 MG/0.3 ML SYRG SC SCH (08:35)
[2016-08-08] MEDS: DILTIAZEM HCL 180 MG CAP.SR.24H PO SCH (08:36)
[2016-08-08] MEDS: LISINOPRIL 40 MG TABLET PO SCH (08:36)
--- NOTE | 2016-08-08 08:55 | PN ---
Subjective - Date and Time Seen Date: 08/07/16 Time: 16:30 Subjective Narrative: Carrol reports feeling well. No concerns. Unable to get PIC line today due to poor vasculature. Peripheral line working well. No fever, chills, n/v. Objective - Vitals Vitals: Last Vital Signs Temp 36.6 C 08/08/16 08:18 Pulse 64 08/08/16 08:36 Resp 16 08/08/16 08:18 BP 160/59 08/08/16 08:36 Pulse Ox 96 08/08/16 08:18 - Exam Constitutional: Present: Alert, Oriented x3, Cooperative Respiratory: Present: lungs clear, normal breath sounds, no respiratory distress Cardiovascular/Chest: Present: systolic murmur - 2+, irregularly irregular Abdomen: Present: Normal bowel sounds, soft, nontender, nondistended, no rebound tenderness Assessment/Plan - Problems/Diagnosis (1) Septicemia, Pseudomonas Problem: Acute Narrative: Pseudomonas in blood culture x 2. Only sensitive to IV antibiotics. Will need 2 weeks of antibiotics due to pseudomonas in blood culture x 2. Attempted PIC line today, but unsuccessful. Peripheral line is working well at this time will continue. Hemodynamically stable and doing well but needs 2 weeks of IV antibiotics. (2) Atrial fibrillation with RVR Problem: Acute Narrative: Patient with atrial fibrillation that developed during hospital course. Has had episodes of RVR that were responsive to IV diltiazem. Oral diltiazem has been increased and no further episodes of RVR in the last 24 hours. Needs to be monitored on telemetry and therefore cannot be skilled at this time, if heart rate remains stable may consider skilling in the next few days.
[2016-08-08] MEDS: MEROPENEM 1 GM in NORMAL SALINE 100 ML IV SCH ×2 (10:23→21:00)
[2016-08-08] MEDS: ROSUVASTATIN CALCIUM 10 MG TABLET PO SCH (21:01)
[2016-08-09] MEDS: ALBUTEROL SULFATE/IPRATROPIUM 3 ML NEBU IH SCH ×5 (00:53→19:28)
[2016-08-09] MEDS: LEVOTHYROXINE SODIUM 75 MCG TABLET PO SCH (07:50)
[2016-08-09] MEDS: MEROPENEM 1 GM in NORMAL SALINE 100 ML IV SCH ×2 (09:36→21:00)
[2016-08-09] MEDS: DILTIAZEM HCL 180 MG CAP.SR.24H PO SCH (09:37)
[2016-08-09] MEDS: LISINOPRIL 40 MG TABLET PO SCH (09:37)
[2016-08-09] MEDS: ENOXAPARIN SODIUM 30 MG/0.3 ML SYRG SC SCH (09:37)
[2016-08-09] MEDS: SACCHAROMYCES BOULARDII 250 MG CAPSULE PO SCH ×2 (09:37→21:00)
[2016-08-09] MEDS: CITALOPRAM HYDROBROMIDE 20 MG TABLET PO SCH (09:37)
[2016-08-09] MEDS: MULTIVITAMINS 1 CAP CAPSULE PO SCH (09:37)
[2016-08-09] MEDS: BETA-CAROTENE(A) W-C , E/MIN 1 TAB TABLET PO SCH (09:37)
[2016-08-09] MEDS: ROSUVASTATIN CALCIUM 10 MG TABLET PO SCH (21:00)
[2016-08-10] MEDS: ALBUTEROL SULFATE/IPRATROPIUM 3 ML NEBU IH SCH ×4 (00:48→19:33)
--- NOTE | 2016-08-10 01:54 | PN ---
Subjective - Date and Time Seen Date: 08/09/16 Time: 14:30 Objective Objective Narrative: Feeling well. No concerns. Denies palpitations, fever, chills, n/v. - Vitals Vitals: Last Vital Signs VSS, Afebrile - Exam Constitutional: Present: Alert, Oriented x3, Cooperative ENT Exam: Present: hearing grossly normal Respiratory: Present: lungs clear, normal breath sounds Cardiovascular/Chest: Present: no murmur, irregularly irregular Abdomen: Present: Normal bowel sounds, soft, nontender, nondistended Assessment/Plan - Problems/Diagnosis (1) Septicemia, Pseudomonas Problem: Acute Narrative: Needs 2 weeks IV antibiotics. (2) Atrial fibrillation with RVR Problem: Acute Narrative: Remains in atrial fibrillation. Discussed anticoagulation. Would like xarelto if not too expensive. Has not had any further episodes of RVR. Continue to monitor on telemetry.
[2016-08-10] MEDS: LEVOTHYROXINE SODIUM 75 MCG TABLET PO SCH (08:28)
[2016-08-10] MEDS: DILTIAZEM HCL 180 MG CAP.SR.24H PO SCH (08:28)
[2016-08-10] MEDS: CITALOPRAM HYDROBROMIDE 20 MG TABLET PO SCH (08:28)
[2016-08-10] MEDS: ENOXAPARIN SODIUM 30 MG/0.3 ML SYRG SC SCH (08:29)
[2016-08-10] MEDS: BETA-CAROTENE(A) W-C , E/MIN 1 TAB TABLET PO SCH (08:29)
[2016-08-10] MEDS: SACCHAROMYCES BOULARDII 250 MG CAPSULE PO SCH ×2 (08:29→20:55)
[2016-08-10] MEDS: LISINOPRIL 40 MG TABLET PO SCH (08:30)
[2016-08-10] MEDS: MULTIVITAMINS 1 CAP CAPSULE PO SCH (08:30)
[2016-08-10] MEDS ORDERED: [UNRECOGNIZED DRUG - OTHER] MM PRN (10:56)
[2016-08-10] MEDS: MEROPENEM 1 GM in NORMAL SALINE 100 ML IV SCH ×2 (10:59→21:00)
--- NOTE | 2016-08-10 11:09 | PN ---
Subjective - Date and Time Seen Date: 08/10/16 Time: 10:55 Subjective Narrative: Pt. without complaint except sore to her gums from her dentures. usually does oral gel at home which helps resolve it. She denies CP/SOB/N/V. some LAZO but it isn't bad. Objective - Review of Systems Generalized/Overall Review: Reports: Weakness. Denies: Chills, Fever EENTM: Reports: No Symptoms Reported, Other - sore in her mouth Respiratory: Reports: No Symptoms Reported, Cough, Other - LAZO Cardiac: Denies: Chest Pain, Edema, Palpitations Abdominal: Reports: No Symptoms Reported Genitourinary Symptoms: Reports: No Symptoms Reported Musculoskeletal Complaints: Reports: No Symptoms Reported Neurological: Reports: Weakness Skin: Reports: No Symptoms Reported Endocrine: Reports: No Symptoms Reported - Vitals Vitals: Last Vital Signs Temp 36.6 C 08/10/16 09:00 Pulse 59 L 08/10/16 09:00 Resp 20 08/10/16 09:00 BP 149/61 08/10/16 09:00 Pulse Ox 95 08/10/16 09:00 - EKG/Xray Findings EKG: NSR EKG read: Interp. by me - Exam Constitutional: Present: Alert, Oriented x3, Cooperative, No distress ENT Exam: Present: hearing grossly normal Neck: Present: supple Respiratory: Present: lungs clear, normal breath sounds, no respiratory distress , no accessory muscle use Cardiovascular/Chest: Present: regular rate, rhythm, no murmur Abdomen: Present: Normal bowel sounds, soft, nontender, no rebound tenderness, no hepatospenomegaly Extremity: Present: no pedal edema, no calf tenderness Skin Exam: Present: normal color Neurologic: Present: normal mood/affect, oriented x 3 Appearance: Present: appropriate appearance, appropriate insight, neat Eye contact: Present: cooperative, good eye contact, normal speech Thoughts: Present: normal thought pattern, no apparent hallucination Assessment/Plan - Problems/Diagnosis (1) Atrial fibrillation Problem: Resolved Qualifiers: Atrial fibrillation type: paroxysmal Qualified Code(s): I48.0 - Paroxysmal atrial fibrillation Narrative: appears to have resolved. Most likely related to her current septicemia/ bactermemia, possible some COPD issues. will continue on telemetry until we SNF her. (2) Bacteremia Problem: Acute Narrative: pseudomonal infection. source would most likely be lung as urine was negative. continue imipenem for 2 wks. (3) Elevated liver enzymes Problem: Acute Narrative: recheck cmp in am. most likely due to sepsis. (4) COPD (chronic obstructive pulmonary disease) Problem: Chronic Qualifiers: COPD type: emphysema Emphysema type: unspecified Qualified Code(s): J43.9 - Emphysema, unspecified Narrative: stable. continue scheduled duoneb (5) Hypertension Problem: Chronic Qualifiers: Hypertension type: essential hypertension Narrative: stable no changes at this time (6) Discharge planning issues Problem: Acute Narrative: will need 2 wks IV abx. pt. is stable and able be SNF but have to wait for PA from insurance so will be at least Friday before this can take place. Will continue current care unchanged for now.
[2016-08-10] MEDS: ROSUVASTATIN CALCIUM 10 MG TABLET PO SCH (20:56)
[2016-08-11] MEDS: ALBUTEROL SULFATE/IPRATROPIUM 3 ML NEBU IH SCH ×4 (00:19→18:42)
[2016-08-11] MEDS: LEVOTHYROXINE SODIUM 75 MCG TABLET PO SCH (06:44)
[2016-08-11] MEDS: DILTIAZEM HCL 180 MG CAP.SR.24H PO SCH (08:34)
[2016-08-11] MEDS: LISINOPRIL 40 MG TABLET PO SCH (08:34)
[2016-08-11] MEDS: MULTIVITAMINS 1 CAP CAPSULE PO SCH (08:34)
[2016-08-11] MEDS: BETA-CAROTENE(A) W-C , E/MIN 1 TAB TABLET PO SCH (08:34)
[2016-08-11] MEDS: SACCHAROMYCES BOULARDII 250 MG CAPSULE PO SCH ×2 (08:34→21:23)
[2016-08-11] MEDS: CITALOPRAM HYDROBROMIDE 20 MG TABLET PO SCH (08:35)
[2016-08-11] MEDS: ENOXAPARIN SODIUM 30 MG/0.3 ML SYRG SC SCH (08:35)
--- NOTE | 2016-08-11 09:34 | PN ---
Subjective - Date and Time Seen Date: 08/11/16 Time: 09:28 Subjective Narrative: Pt. without complaint this am. Feels good. Objective - Review of Systems Generalized/Overall Review: Reports: No Symptoms Reported EENTM: Reports: No Symptoms Reported Respiratory: Reports: No Symptoms Reported Cardiac: Reports: No Symptoms Reported Abdominal: Reports: No Symptoms Reported Genitourinary Symptoms: Reports: No Symptoms Reported Musculoskeletal Complaints: Reports: No Symptoms Reported Neurological: Reports: No Symptoms Reported Skin: Reports: No Symptoms Reported Endocrine: Reports: No Symptoms Reported - Vitals Vitals: Last Vital Signs Temp 36.4 C L 08/11/16 08:29 Pulse 91 08/11/16 08:34 Resp 18 08/11/16 08:29 BP 155/59 08/11/16 08:34 Pulse Ox 93 08/11/16 08:29 - Exam Constitutional: Present: Alert, Oriented x3, Cooperative, Obese ENT Exam: Present: hearing grossly normal Neck: Present: supple Respiratory: Present: normal breath sounds, no respiratory distress, no accessory muscle use, rales - right base Cardiovascular/Chest: Present: regular rate, rhythm, no murmur Abdomen: Present: Normal bowel sounds, soft, nontender, obese Extremity: Present: no calf tenderness Skin Exam: Present: normal color Neurologic: Present: normal mood/affect, oriented x 3 Appearance: Present: appropriate appearance, appropriate insight Eye contact: Present: cooperative, good eye contact, normal speech Thoughts: Present: normal thought pattern, no apparent hallucination Assessment/Plan - Problems/Diagnosis (1) Atrial fibrillation Problem: Resolved Qualifiers: Atrial fibrillation type: paroxysmal Qualified Code(s): I48.0 - Paroxysmal atrial fibrillation Narrative: stable, in NSR. no med changes at this time. (2) Bacteremia Problem: Acute Narrative: pseudomonal, on Abx, will need 2 wks of total abx. awaiting PA from insurance to do SNF IV abx here in hospital as she has little support at home and [facility] will be very difficult for her. (3) Elevated liver enzymes Problem: Acute (4) COPD (chronic obstructive pulmonary disease) Problem: Chronic Qualifiers: COPD type: emphysema Emphysema type: unspecified Qualified Code(s): J43.9 - Emphysema, unspecified Narrative: stable, no changes at this time. (5) Hypertension Problem: Chronic Qualifiers: Hypertension type: essential hypertension Narrative: stable (6) Discharge planning issues Problem: Acute Narrative: Pt. needing 2wks total IV abx, awaiting PA discussion with insurance. Pt. has difficulty with transportation making [facility] tx difficult.
[2016-08-11] MEDS: MEROPENEM 1 GM in NORMAL SALINE 100 ML IV SCH ×2 (10:17→21:24)
[2016-08-11] MEDS: ROSUVASTATIN CALCIUM 10 MG TABLET PO SCH (21:24)
[2016-08-12] MEDS: ALBUTEROL SULFATE/IPRATROPIUM 3 ML NEBU IH SCH ×3 (00:09→13:43)
[2016-08-12 06:30] VITALS: BP 153/59
[2016-08-12] MEDS: LEVOTHYROXINE SODIUM 75 MCG TABLET PO SCH (07:06)
[2016-08-12] MEDS: ENOXAPARIN SODIUM 30 MG/0.3 ML SYRG SC SCH (08:49)
[2016-08-12] MEDS: LISINOPRIL 40 MG TABLET PO SCH (08:49)
[2016-08-12] MEDS: CITALOPRAM HYDROBROMIDE 20 MG TABLET PO SCH (08:49)
[2016-08-12] MEDS: SACCHAROMYCES BOULARDII 250 MG CAPSULE PO SCH (08:49)
[2016-08-12] MEDS: MULTIVITAMINS 1 CAP CAPSULE PO SCH (08:49)
[2016-08-12] MEDS: BETA-CAROTENE(A) W-C , E/MIN 1 TAB TABLET PO SCH (08:49)
[2016-08-12] MEDS: DILTIAZEM HCL 180 MG CAP.SR.24H PO SCH (08:49)
[2016-08-12] MEDS: MEROPENEM 1 GM in NORMAL SALINE 100 ML IV SCH (09:10)
--- NOTE | 2016-08-16 11:45 | DS ---
(1) COPD with acute exacerbation Problem: Acute (2) Acute CHF (congestive heart failure) Problem: Resolved Qualifiers: Congestive heart failure type: diastolic Qualified Code(s): I50.31 - Acute diastolic (congestive) heart failure (3) Elevated liver enzymes Diagnosis(s): improved levels. Problem: Resolved (4) Altered mental state Problem: Resolved Qualifiers: Altered mental status type: transient alteration of awareness Qualified Code(s): R40.4 - Transient alteration of awareness (5) Leukocytosis Problem: Resolved Qualifiers: Leukocytosis type: unspecified Qualified Code(s): D72.829 - Elevated white blood cell count, unspecified (6) Bacteremia Diagnosis(s): with septicemia with Pseudomonas. for a total of 2 weeks of IV antibiotics Problem: Acute Description of Stay: History of Present Illness: Carrol Bergeron, is a 76-year-old white female, with multiple medical problems in the past, who was admitted on 07/31/2016 for shortness of breath, fever and altered mental status. Her white blood cell count , BNP, LFT's were elevated. Her CXR showed pulmonary congestion. She was admitted with the working impression of acute COPD exacerbation likely due to acute bronchitis versus beginning pneumonia behind the pulmonary congestion; Congestive heart failure with chest x-ray chest x-ray showing pulmonary congestion/elevated BNP; Passive congestion of the liver versus infectious etiology for her elevated liver function tests; Altered mental status secondary to delirium /acute toxic encephalopathy from sepsis. She was started on IV Rocephin and metformin, IV solumedrol and breathing treatments. Her blood cultures grew gram-negative bacilli specifically rods x 2 bottles. Her Rocephin was changed to cefepime in anticipation of pseudomonas. White blood cell continued to improve. IV Lasix was also started on the patient for pulmonary congestion. Echocardiogram showed normal ejection fraction, positive diastolic dysfunction with an RSVP of 45 likely pulmonary hypertension. Her liver function tests started to improve after Lasix was started. He US showed dilated ducts but could be normal for postcholecystectomy. Her CXR showed resolution of her pulmonary edema but no mention of acute infiltrates. Her mentation also improved after IV antibiotics were started. Blood culture came back positive for Pseudomonas, only intermediate sensitivity to cefepime. Her antibiotics was changed to meropenem . Her metformin, IV Lasix and prednisone were stopped . She is now stable to be transferred to alf floor for 6 more days of IV meropenem to complete a two-week course of IV antibiotics for her Pseudomonas septicemia/ bacteremia. We will also have physical therapy continue with her strengthening exercises. Procedures Performed: none Discharge Disposition: [facility] bed ([facility]) Disposition: [facility] bed ([facility]) Condition: Good Discharge Activity: Activity as tolerated Discharge Diet: Consistent carbs, Low salt Prison Therapy: Physicial Therapy Complete Home Medications List: Complete Home Medication List: Citalopram Hydrobromide [Citalopram HBr] 40 mg PO DAILY 06/22/12 Lisinopril 40 mg PO DAILY 06/22/12 Atorvastatin Calcium [Lipitor] 20 mg PO DAILY 11/09/14 Budesonide/Formoterol Fumarate [Symbicort 160-4.5 Mcg Inhaler] 2 puff IH BID Levothyroxine Sodium [Synthroid] 75 mcg PO DAILY 11/09/14 Multivitamins [Multivitamin Bianca] 1 cap PO DAILY 11/09/14 Diltiazem HCl [Cardizem Cd] 180 mg PO DAILY 07/31/16 Acetaminophen [Tylenol] 650 mg PO Q6H PRN #0 tablet 08/12/16 Albuterol Sulfate/Ipratropium [Duoneb 2.5-0.5MG/3ML Soln] 3 ml IH Q6HRT nebu Benzocaine [Orabase] 1 appl MM PRN PRN #0 tube 08/12/16 Beta-Carotene(A) W-C , E/Min [Ocuvite] 1 tab PO DAILY tablet 08/12/16 Enoxaparin Sodium [Lovenox] 30 mg SC Q24H disp.syrin 08/12/16 Meropenem [Merrem] 1 gm IV Q12H vial 08/12/16 Ondansetron HCl/Pf [Zofran] 4 mg IV Q4H PRN #0 vial 08/12/16 Saccharomyces Boulardii [Florastor] 250 mg PO BID capsule 08/12/16
--- NOTE | 2016-09-11 13:34 | PN ---
Subjective - Date and Time Seen Date: 08/08/16 Time: 12:36 Subjective Narrative: Reports no concerns. Denies pain, fever, chills, nausea, or vomiting. Objective - Vitals Vitals: Last Vital Signs Temp 36.6 C 08/08/16 09:00 Pulse 64 08/08/16 09:00 Resp 16 08/08/16 09:00 BP 160/59 08/08/16 09:00 Pulse Ox 96 08/08/16 09:00 - Exam Constitutional: Present: Alert, Oriented x3, Cooperative ENT Exam: Present: hearing grossly normal Respiratory: Present: lungs clear, normal breath sounds Cardiovascular/Chest: Present: regular rate, rhythm, no murmur Abdomen: Present: Normal bowel sounds, soft, nontender, nondistended Assessment/Plan - Problems/Diagnosis (1) Septicemia, Pseudomonas Problem: Resolved Narrative: Currently on Merrem for two weeks based on cultures. Unclear source, suspect possibly lung. Two positive blood cultures, urine negative. (2) COPD with acute exacerbation Problem: Acute (3) Atrial fibrillation Problem: Chronic Qualifiers: Atrial fibrillation type: paroxysmal Qualified Code(s): I48.0 - Paroxysmal atrial fibrillation Narrative: Patient has been in and out of atrial fibrillation, rate controlled. Suspect secondary to illness but cannot skill her for antibiotics on telemetry which she needs for monitoring of heart until this resolves or becomes stable. (4) Acute CHF (congestive heart failure) Problem: Resolved Qualifiers: Congestive heart failure type: diastolic Qualified Code(s): I50.31 - Acute diastolic (congestive) heart failure (5) Atrial fibrillation with RVR Problem: Resolved
== END 2016-08-12 11:51 | disposition swing bed (61) | DRG 190 ==
LOC: ER 18:39 → MS 21:48 → OBSVTOIN 08-01 08:05
PROVIDERS: ADMIT Nurse Practitioner; ATTEND Internal Medicine
PROC: 0T9B70Z Drainage of Bladder with Drainage Device, Via Natural or Artificial Opening (ICD-10-PCS; principal; 2016-07-31)
PROC: B246ZZZ Ultrasonography of Right and Left Heart (ICD-10-PCS; 2016-08-01)
DX: J44.1 Chronic obstructive pulmonary disease with (acute) exacerbation (principal); I50.31 Acute diastolic (congestive) heart failure; B96.5 Pseudomonas (aeruginosa) (mallei) (pseudomallei) as the cause of diseases classified elsewhere; R40.4 Transient alteration of awareness; J44.0 Chronic obstructive pulmonary disease with (acute) lower respiratory infection; J20.9 Acute bronchitis, unspecified; D72.829 Elevated white blood cell count, unspecified; I27.2 Other secondary pulmonary hypertension; Z99.81 Dependence on supplemental oxygen
CPT/HCPCS: 36415; 51701; 71010; 71020; 76705; 80048; 80053; 80061; 80074; 80076; 81001; 82150; 82977; 83605; 83690; 83880; 84443; 84484; 85007; 85025; 85610; 87040; 87077; 87086; 87186; 87400; 93005; 93306; 94640; 94760; 99283; G0378

== ENCOUNTER 2016-08-12 12:02 | Inpatient (IN) | payer MEDICARE ==
--- OUTSIDE RECORDS SUMMARY | 2016-08-12 12:07 | XMS REPORT | Continuity of Care Document ---
:1940 Author Organization [facility] ([facility]) Address [address] [place] [address] Phone [phone] Care Team Providers Name Role Phone Umair Crawford Primary Care Provider [phone] Source Comments This disclosure is being made pursuant to the Care Everywhere program, applicable federal and state laws, and may not contain all informaitonavailable regarding this patient.[facility] ([facility]) Active Allergies and Adverse Reactions Allergen [...]
--- NOTE | 2016-08-12 12:43 | HP ---
Chief Complaint - Chief Complaint Date of Service: 08/12/16 Time of Service: 12:20 Chief Complaint: need for IV antibiotic/PT. History of Present Illness: Carrol Bergeron, is a 76-year-old white female, with multiple medical problems in the past, who was admitted on 07/31/2016 for shortness of breath, fever and altered mental status. Her white blood cell count , BNP, LFT's were elevated. Her CXR showed pulmonary congestion. She was admitted with the working impression of acute COPD exacerbation likely due to acute bronchitis versus beginning pneumonia behind the pulmonary congestion; Congestive heart failure with chest x-ray chest x-ray showing pulmonary congestion/elevated BNP; Passive congestion of the liver versus infectious etiology for her elevated liver function tests; Altered mental status secondary to delirium /acute toxic encephalopathy from sepsis. She was started on IV Rocephin and metformin, IV solumedrol and breathing treatments. Her blood cultures grew gram-negative bacilli specifically rods x 2 bottles. Her Rocephin was changed to cefepime in anticipation of pseudomonas. White blood cell continued to improve. IV Lasix was also started on the patient for pulmonary congestion. Echocardiogram showed normal ejection fraction, positive diastolic dysfunction with an RSVP of 45 likely pulmonary hypertension. Her liver function tests started to improve after Lasix was started. He US showed dilated ducts but could be normal for postcholecystectomy. Her CXR showed resolution of her pulmonary edema but no mention of acute infiltrates. Her mentation also improved after IV antibiotics were started. Blood culture came back positive for Pseudomonas, only intermediate sensitivity to cefepime. Her antibiotics was changed to meropenem . Her metformin, IV Lasix and prednisone were stopped . She is now stable to be transferred to snf floor for 6 more days of IV meropenem to complete a two-week course of IV antibiotics for her Pseudomonas septicemia/ bacteremia. We will also have physical therapy continue with her strengthening exercises. - Patient's Past Medical History Patient History - Medical: Depression, Fibromyalgia, Hypothyroidism, Obesity, Osteoarthritis Patient History - Cardiac/Respiratory: CHF, COPD, Hypertension, Hyperlipidemia, Home O2 Use Patient History - Cancer: Lung, Cervical Patient History - Surgical Procedures: Appendectomy, Cataracts, Cholecystectomy , Colonoscopy, Hysterectomy, Total Hip Replacement, T & A, Other Patient History - Other: None - Family History Mother Family History - Medical: , No pertinent hx Family History - Cardiac/Respiratory: CHF Family History - Cancer: No pertinent family hx Father Family History - Medical: , No pertinent hx Family History - Cardiac/Respiratory: No pertinent hx Family History - Cancer: Stomach - Social History Living Situations: spouse Abuse History: No History of abuse Psych History: Hx of Depression Alcohol Use: none Drug Use: none - Immunizations Immunizations Up to Date: No Hx Pneumococcal Vaccination: No - HX allergic reaction History of Influenza Vaccine: Yes Review Of Systems (GEN) - Review of Systems Generalized/Overall Review: Present: Weakness. Absent: Chills, Fever EENTM: Present: No Symptoms Reported Respiratory: Absent: Cough, Shortness of Breath Cardiac: Absent: Chest Pain, Edema, Palpitations Abdominal: Absent: Nausea, Vomiting Genitourinary: Absent: Urgency, Frequency Musculoskeletal: Present: Joint Pain Immunizations: IMMUNIZATION HX Immunizations Up to Date No History of Influenza Vaccine Yes Hx Pneumococcal Vaccination No Allergies/Adverse Reactions: Allergies Allergy/AdvReac Type Severity Reaction Status Date / Time metoprolol AdvReac Intermediate DIZZINESS, Verified 07/31/16 23:27 DYSPNEA pneumococcal vaccine AdvReac Mild RASH AT Verified 07/31/16 23:27 [Pneumococcal Vaccine] INJECTION SITE Home Medications: HOME MEDICATIONS Citalopram Hydrobromide [Citalopram HBr] 40 mg PO DAILY 06/22/12 [Last Taken ] Lisinopril 40 mg PO DAILY 06/22/12 [Last Taken 10/08/15] Atorvastatin Calcium [Lipitor] 20 mg PO DAILY 11/09/14 [Last Taken 10/07/15 21: 00] Beta-Carotene(A) W-C , E/Min [Ocuvite] 1 tab PO DAILY 11/09/14 [Last Taken 10/07] Budesonide/Formoterol Fumarate [Symbicort 160-4.5 Mcg Inhaler] 2 puff IH BID [Last Taken 10/08/15] Levothyroxine Sodium [Synthroid] 75 mcg PO DAILY 11/09/14 [Last Taken 10/08/15] Multivitamins [Multivitamin Bianca] 1 cap PO DAILY 11/09/14 [Last Taken 10/08/15 ] Diltiazem HCl [Cardizem Cd] 180 mg PO DAILY 07/31/16 [Last Taken Unknown] Acetaminophen [Tylenol] 650 mg PO Q6H PRN #0 tablet 08/12/16 [Last Taken Unknown ] Albuterol Sulfate/Ipratropium [Duoneb 2.5-0.5MG/3ML Soln] 3 ml IH Q6HRT nebu [Last Taken Unknown] Benzocaine [Orabase] 1 appl MM PRN PRN #0 tube 08/12/16 [Last Taken Unknown] Beta-Carotene(A) W-C , E/Min [Ocuvite] 1 tab PO DAILY tablet 08/12/16 [Last Taken Unknown] Enoxaparin Sodium [Lovenox] 30 mg SC Q24H disp.syrin 08/12/16 [Last Taken Unknown] Levothyroxine Sodium [Synthroid] 75 mcg PO QDAC tablet 08/12/16 [Last Taken Unknown] Meropenem [Merrem] 1 gm IV Q12H vial 08/12/16 [Last Taken Unknown] Normal Saline [Sodium Chloride 0.9%] 100 ml IV Q12H #2 bag 08/12/16 [Last Taken Unknown] Ondansetron HCl/Pf [Zofran] 4 mg IV Q4H PRN #0 vial 08/12/16 [Last Taken Unknown ] Saccharomyces Boulardii [Florastor] 250 mg PO BID capsule 08/12/16 [Last Taken Unknown] Exam - Exam Vital Signs: Vital Signs - Last Taken Temp 36.9 C 08/12/16 07:02 Pulse Resp BP 153/59 08/12/16 08:49 Pulse Ox Constitutional: Present: Alert, Oriented x3, Cooperative, Obese ENT Exam: Present: hearing grossly normal Eye Exam: bilateral eye: normal inspection, PERRL, EOMI Neck: Present: supple Back Exam: Present: no CVA tenderness Respiratory: Present: decreased breath sounds, No rales, No wheezing Cardiovascular/Chest: Present: regular rate, rhythm, no JVD, no murmur Abdomen: Present: Normal bowel sounds, soft, nontender, nondistended Extremity: Present: no pedal edema, no calf tenderness Assessment/Plan - Assessment/Plan (1) Acute CHF (congestive heart failure) Problem: Resolved Qualifiers: Congestive heart failure type: diastolic Qualified Code(s): I50.31 - Acute diastolic (congestive) heart failure (2) Atrial fibrillation with RVR Assessment: paroxysmal Problem: Resolved (3) COPD exacerbation Problem: Resolved (4) Elevated liver enzymes Assessment: improved except for continued elevated ADILIA. Hepatitis panel WNL. could be due to sepsis or to fatty liver. Problem: Acute (5) HLD (hyperlipidemia) Problem: Chronic Qualifiers: Hyperlipidemia type: mixed hyperlipidemia Qualified Code(s): E78.2 - Mixed hyperlipidemia (6) Leukocytosis Assessment: resolved but then up again on 08/07/16. . will repeat CBC/CMP. Problem: Acute Qualifiers: (7) Septicemia, Pseudomonas Assessment: clinically improving Problem: Acute (8) HTN (hypertension) Problem: Chronic Qualifiers: Hypertension type: essential hypertension Qualified Code(s): I10 - Essential (primary) hypertension
[2016-08-12] MEDS ORDERED: [UNRECOGNIZED DRUG - OTHER] MM PRN (17:01)
[2016-08-12] MEDS ORDERED: ONDANSETRON HCL/PF 2 MG/ML VIAL IV PRN (17:01)
[2016-08-12] MEDS ORDERED: ACETAMINOPHEN 325 MG TABLET PO PRN (17:01)
[2016-08-12] MEDS ORDERED: ENOXAPARIN SODIUM 30 MG/0.3 ML SYRG SC SCH ×2 (17:15→17:30)
[2016-08-12] MEDS ORDERED: MEROPENEM 1 GM VIAL IV SCH (17:15)
[2016-08-12] MEDS: ALBUTEROL SULFATE/IPRATROPIUM 3 ML NEBU IH SCH (18:31)
[2016-08-12] MEDS: FLUTICASONE/SALMETEROL 14 PUFF DISK.W.DEV IH SCH (20:17)
[2016-08-12] MEDS: SACCHAROMYCES BOULARDII 250 MG CAPSULE PO SCH (20:17)
[2016-08-12] MEDS: MEROPENEM 1 GM in NORMAL SALINE 100 ML IV SCH (23:53)
[2016-08-13] MEDS: ALBUTEROL SULFATE/IPRATROPIUM 3 ML NEBU IH SCH ×4 (00:49→19:55)
[2016-08-13 05:56] LABS: Albumin * 2.9 gm/dl (3.4-5.0); Anion Gap 11.8 mmol/L (6.8-13.8); BUN/Creatinine Ratio 22.1 (9.0-21.6); Bilirubin, Total 0.4 mg/dL (0.0-1.1); Ca. Corrected For Albumin 9.5 mg/dL (8.4-10.2); Calcium * 8.9 mg/dL (7.9-10.9); Carbon Dioxide 28.7 mmol/L (24-32.6); Potassium 4.5 mmol/L (3.4-4.6); Total Protein 6.3 gm/dL (6.2-8.2)
[2016-08-13] MEDS: LEVOTHYROXINE SODIUM 75 MCG TABLET PO SCH (06:56)
[2016-08-13 08:23] LABS: Hematocrit 36.8 % (37.0-47.0); Hemoglobin 11.5 gm/dL (12.5-16.0); Mean Cell Volume 88.5 fl (78-100); Mean Corpuscular Hemoglobin 27.6 pg (27-31); Mean Corpuscular Hgb Conc 31.3 g/dl (32-36); Mean Platelet Volume 11.6 fl (6.0-9.5); Platelet Count 185 K/mm3 (150-450); Red Blood Count 4.16 M/mm3 (4.2-5.4); Red Cell Distribution Width 14.6 % (11.5-14.0); White Blood Count 6.5 K/mm3 (4.0-10.5)
[2016-08-13 08:29] LABS: Total Cells Counted 100
[2016-08-13 09:00] LABS: Eosinophil 2 % (0-3); Immature Granulocyte 4 (0-1); Lymphocyte 28 % (20-51); Monocyte 16 % (0-9); Neutrophil 50 % (42-75); Neutrophil # 3.3 K/mm3 (1.3-6.0)
[2016-08-13 09:01] LABS: Platelet Estimate Normal (NORMAL)
[2016-08-13 09:03] LABS: Dohle Bodies Trace; RBC Morphology Normal (NORMAL)
[2016-08-13] MEDS: DILTIAZEM HCL 180 MG CAP.SR.24H PO SCH (10:02)
[2016-08-13] MEDS: CITALOPRAM HYDROBROMIDE 20 MG TABLET PO SCH (10:03)
[2016-08-13] MEDS: MULTIVITAMINS 1 CAP CAPSULE PO SCH (10:03)
[2016-08-13] MEDS: BETA-CAROTENE(A) W-C , E/MIN 1 TAB TABLET PO SCH (10:03)
[2016-08-13] MEDS: LISINOPRIL 40 MG TABLET PO SCH (10:03)
[2016-08-13] MEDS: SACCHAROMYCES BOULARDII 250 MG CAPSULE PO SCH ×2 (10:03→21:43)
[2016-08-13] MEDS: ENOXAPARIN SODIUM 30 MG/0.3 ML SYRG SC SCH (10:03)
[2016-08-13] MEDS: FLUTICASONE/SALMETEROL 14 PUFF DISK.W.DEV IH SCH ×2 (10:04→21:44)
[2016-08-13] MEDS: MEROPENEM 1 GM in NORMAL SALINE 100 ML IV SCH ×2 (13:10→23:25)
[2016-08-14] MEDS: ALBUTEROL SULFATE/IPRATROPIUM 3 ML NEBU IH SCH ×4 (00:47→18:52)
--- NOTE | 2016-08-14 07:50 | PN ---
Subjective - Date and Time Seen Date: 08/14/16 Time: 07:46 Subjective Narrative: Feeling good. Has been ambulating 3x a day. Objective - Review of Systems Generalized/Overall Review: Reports: Weakness - although getting stronger. Denies: Chills, Fever EENTM: Reports: No Symptoms Reported Respiratory: Denies: Cough, Shortness of Breath Cardiac: Denies: Chest Pain, Edema, Palpitations Abdominal: Denies: Nausea, Vomiting Genitourinary Symptoms: Denies: Urgency, Frequency Musculoskeletal Complaints: Reports: Joint Pain - Vitals Vitals: Last Vital Signs Temp 36.6 C 08/13/16 21:00 Pulse 58 L 08/14/16 06:23 Resp 18 08/14/16 06:23 BP 150/63 08/13/16 21:00 Pulse Ox 98 08/14/16 06:13 - Abnormal Lab Findings Abnormal Lab Findings: Abnormal Lab Results 08/13/16 Range/Units 05:35 RBC 4.16 L (4.2-5.4) M/mm3 Hgb 11.5 L (12.5-16.0) gm/dL Hct 36.8 L (37.0-47.0) % MCHC 31.3 L (32-36) g/dl RDW 14.6 H (11.5-14.0) % MPV 11.6 H (6.0-9.5) fl Monocytes % (Manual) 16 H (0-9) % Immature Granulocytes 4 H (0-1) - Exam Constitutional: Present: Alert, Oriented x3, Cooperative, Elderly, Obese ENT Exam: Present: hearing grossly normal Neck: Present: supple Breasts: Present: Exam deferred Respiratory: Present: decreased breath sounds, No rales, No wheezing Cardiovascular/Chest: Present: regular rate, rhythm, no JVD, no murmur Abdomen: Present: Normal bowel sounds, soft, nontender, nondistended Extremity: Present: no pedal edema, no calf tenderness Assessment/Plan - Problems/Diagnosis (1) Acute CHF (congestive heart failure) Problem: Resolved Qualifiers: Congestive heart failure type: diastolic Qualified Code(s): I50.31 - Acute diastolic (congestive) heart failure (2) Atrial fibrillation with RVR Problem: Resolved Narrative: She is wiling to be on Xarelto if her insurance covers it and if it is affordable. (3) COPD exacerbation Problem: Resolved Narrative: she says she is breathing better even with ambulation (4) Elevated liver enzymes Problem: Acute Narrative: ALT down to 72 (5) HLD (hyperlipidemia) Problem: Chronic Qualifiers: Hyperlipidemia type: mixed hyperlipidemia Qualified Code(s): E78.2 - Mixed hyperlipidemia (6) Leukocytosis Problem: Resolved Qualifiers: Leukocytosis type: unspecified Qualified Code(s): D72.829 - Elevated white blood cell count, unspecified (7) Septicemia, Pseudomonas Problem: Resolved Narrative: clinically. will complete 2 week course of antipseudomnal regimen. Will end at 9 pm on Friday. (8) HTN (hypertension) Problem: Chronic Qualifiers: Hypertension type: essential hypertension Qualified Code(s): I10 - Essential (primary) hypertension
[2016-08-14] MEDS: LEVOTHYROXINE SODIUM 75 MCG TABLET PO SCH (07:53)
[2016-08-14] MEDS: DILTIAZEM HCL 180 MG CAP.SR.24H PO SCH (09:07)
[2016-08-14] MEDS: FLUTICASONE/SALMETEROL 14 PUFF DISK.W.DEV IH SCH ×2 (09:07→20:51)
[2016-08-14] MEDS: ENOXAPARIN SODIUM 30 MG/0.3 ML SYRG SC SCH (09:11)
[2016-08-14] MEDS: CITALOPRAM HYDROBROMIDE 20 MG TABLET PO SCH (09:11)
[2016-08-14] MEDS: SACCHAROMYCES BOULARDII 250 MG CAPSULE PO SCH ×2 (09:11→22:16)
[2016-08-14] MEDS: MULTIVITAMINS 1 CAP CAPSULE PO SCH (09:12)
[2016-08-14] MEDS: BETA-CAROTENE(A) W-C , E/MIN 1 TAB TABLET PO SCH (09:12)
[2016-08-14] MEDS: LISINOPRIL 40 MG TABLET PO SCH (09:12)
[2016-08-14] MEDS: MEROPENEM 1 GM in NORMAL SALINE 100 ML IV SCH ×2 (11:35→23:29)
[2016-08-15] MEDS: ALBUTEROL SULFATE/IPRATROPIUM 3 ML NEBU IH SCH ×4 (01:00→19:20)
[2016-08-15] MEDS: LEVOTHYROXINE SODIUM 75 MCG TABLET PO SCH (06:43)
[2016-08-15] MEDS: FLUTICASONE/SALMETEROL 14 PUFF DISK.W.DEV IH SCH ×2 (08:33→20:27)
[2016-08-15] MEDS: ENOXAPARIN SODIUM 30 MG/0.3 ML SYRG SC SCH (09:16)
[2016-08-15] MEDS: BETA-CAROTENE(A) W-C , E/MIN 1 TAB TABLET PO SCH (09:16)
[2016-08-15] MEDS: MULTIVITAMINS 1 CAP CAPSULE PO SCH (09:16)
[2016-08-15] MEDS: DILTIAZEM HCL 180 MG CAP.SR.24H PO SCH (09:16)
[2016-08-15] MEDS: CITALOPRAM HYDROBROMIDE 20 MG TABLET PO SCH (09:16)
[2016-08-15] MEDS: SACCHAROMYCES BOULARDII 250 MG CAPSULE PO SCH ×2 (09:16→20:27)
[2016-08-15] MEDS: LISINOPRIL 40 MG TABLET PO SCH (09:16)
[2016-08-15] MEDS: MEROPENEM 1 GM in NORMAL SALINE 100 ML IV SCH ×2 (11:50→23:40)
[2016-08-16] MEDS: ALBUTEROL SULFATE/IPRATROPIUM 3 ML NEBU IH SCH ×5 (00:44→18:41)
[2016-08-16 06:00] LABS: Hematocrit 34.2 % (37.0-47.0); Hemoglobin 10.8 gm/dL (12.5-16.0); Mean Cell Volume 88.6 fl (78-100); Mean Corpuscular Hgb Conc 31.6 g/dl (32-36); Mean Platelet Volume 10.5 fl (6.0-9.5); Platelet Count 154 K/mm3 (150-450); Red Blood Count 3.86 M/mm3 (4.2-5.4); Red Cell Distribution Width 14.9 % (11.5-14.0); White Blood Count 5.6 K/mm3 (4.0-10.5)
[2016-08-16 06:06] LABS: Total Cells Counted 100
[2016-08-16 06:19] LABS: Albumin * 2.9 gm/dl (3.4-5.0); Anion Gap 12.3 mmol/L (6.8-13.8); BUN/Creatinine Ratio 26.1 (9.0-21.6); Bilirubin, Total 0.3 mg/dL (0.0-1.1); Ca. Corrected For Albumin 9.5 mg/dL (8.4-10.2); Calcium * 8.9 mg/dL (7.9-10.9); Carbon Dioxide 27.1 mmol/L (24-32.6); Potassium 4.4 mmol/L (3.4-4.6); Total Protein 6.3 gm/dL (6.2-8.2)
[2016-08-16] MEDS: LEVOTHYROXINE SODIUM 75 MCG TABLET PO SCH (06:28)
[2016-08-16 07:03] LABS: Immature Granulocyte 5 (0-1); Lymphocyte 17 % (20-51); Monocyte 27 % (0-9); Neutrophil 51 % (42-75); Neutrophil # 2.9 K/mm3 (1.3-6.0)
[2016-08-16 07:05] LABS: Platelet Estimate Normal (NORMAL)
[2016-08-16 07:06] LABS: Tear Drop Cells Trace
[2016-08-16 07:08] LABS: Dohle Bodies 1+; Poikilocytosis 1+
--- NOTE | 2016-08-16 08:11 | PN ---
Subjective - Date and Time Seen Date: 08/16/16 Time: 08:04 Subjective Narrative: No complaints. Afebrile. For discharge in the morning. Objective - Review of Systems Generalized/Overall Review: Denies: Chills, Fever EENTM: Reports: No Symptoms Reported Respiratory: Denies: Cough, Shortness of Breath, Orthopnea Cardiac: Denies: Chest Pain, Edema, Palpitations Abdominal: Denies: Nausea, Vomiting Genitourinary Symptoms: Denies: Urgency, Frequency Musculoskeletal Complaints: Denies: Joint Pain - Vitals Vitals: Last Vital Signs Temp 36.6 C 08/16/16 07:49 Pulse 58 L 08/16/16 07:49 Resp 20 08/16/16 07:49 BP 145/53 08/16/16 07:49 Pulse Ox 93 08/16/16 07:49 - Abnormal Lab Findings Abnormal Lab Findings: Abnormal Lab Results 08/16/16 08/16/16 Range/Units 05:14 05:14 RBC 3.86 L (4.2-5.4) M/mm3 Hgb 10.8 L (12.5-16.0) gm/dL Hct 34.2 L (37.0-47.0) % MCHC 31.6 L (32-36) g/dl RDW 14.9 H (11.5-14.0) % MPV 10.5 H (6.0-9.5) fl Lymphocytes % (Manual) 17 L (20-51) % Monocytes % (Manual) 27 H (0-9) % Immature Granulocytes 5 H (0-1) Lymphocytes # (Manual) 1.0 L (1.5-3.5) k/mm3 Monocytes # (Manual) 1.5 H (0.0-1.0) k/mm3 Chloride 107 H (97-106) mmol/L BUN/Creatinine Ratio 26.1 H (9.0-21.6) Albumin 2.9 L (3.4-5.0) gm/dl - Exam Constitutional: Present: Alert, Oriented x3, Cooperative, Elderly, Obese ENT Exam: Present: hearing grossly normal Neck: Present: supple Breasts: Present: Exam deferred Respiratory: Present: decreased breath sounds, No rales, No wheezing Cardiovascular/Chest: Present: regular rate, rhythm, no JVD, no murmur Abdomen: Present: Normal bowel sounds, soft, nontender, nondistended Extremity: Present: no pedal edema, no calf tenderness Assessment/Plan - Problems/Diagnosis (1) Acute CHF (congestive heart failure) Problem: Resolved Qualifiers: Congestive heart failure type: diastolic Qualified Code(s): I50.31 - Acute diastolic (congestive) heart failure (2) Atrial fibrillation with RVR Problem: Resolved Narrative: paroxysmal (3) COPD exacerbation Problem: Resolved (4) Elevated liver enzymes Problem: Resolved (5) HLD (hyperlipidemia) Problem: Chronic Qualifiers: Hyperlipidemia type: mixed hyperlipidemia Qualified Code(s): E78.2 - Mixed hyperlipidemia (6) Leukocytosis Problem: Resolved Qualifiers: Leukocytosis type: unspecified Qualified Code(s): D72.829 - Elevated white blood cell count, unspecified (7) Septicemia, Pseudomonas Problem: Resolved Narrative: clinically. (8) HTN (hypertension) Problem: Chronic Qualifiers: Hypertension type: essential hypertension Qualified Code(s): I10 - Essential (primary) hypertension
[2016-08-16] MEDS: FLUTICASONE/SALMETEROL 14 PUFF DISK.W.DEV IH SCH ×2 (08:49→21:05)
[2016-08-16] MEDS: ENOXAPARIN SODIUM 30 MG/0.3 ML SYRG SC SCH (08:50)
[2016-08-16] MEDS: BETA-CAROTENE(A) W-C , E/MIN 1 TAB TABLET PO SCH (08:50)
[2016-08-16] MEDS: SACCHAROMYCES BOULARDII 250 MG CAPSULE PO SCH ×2 (08:50→21:05)
[2016-08-16] MEDS: CITALOPRAM HYDROBROMIDE 20 MG TABLET PO SCH (08:50)
[2016-08-16] MEDS: DILTIAZEM HCL 180 MG CAP.SR.24H PO SCH (08:50)
[2016-08-16] MEDS: LISINOPRIL 40 MG TABLET PO SCH (08:50)
[2016-08-16] MEDS: MULTIVITAMINS 1 CAP CAPSULE PO SCH (08:50)
[2016-08-16] MEDS: MEROPENEM 1 GM in NORMAL SALINE 100 ML IV SCH ×2 (11:08→23:08)
[2016-08-17] MEDS: ALBUTEROL SULFATE/IPRATROPIUM 3 ML NEBU IH SCH ×2 (00:22→07:32)
[2016-08-17] MEDS: LEVOTHYROXINE SODIUM 75 MCG TABLET PO SCH (06:53)
[2016-08-17] MEDS: FLUTICASONE/SALMETEROL 14 PUFF DISK.W.DEV IH SCH (08:20)
[2016-08-17] MEDS: ENOXAPARIN SODIUM 30 MG/0.3 ML SYRG SC SCH (08:20)
[2016-08-17] MEDS: CITALOPRAM HYDROBROMIDE 20 MG TABLET PO SCH (08:20)
[2016-08-17] MEDS: DILTIAZEM HCL 180 MG CAP.SR.24H PO SCH (08:21)
[2016-08-17] MEDS: BETA-CAROTENE(A) W-C , E/MIN 1 TAB TABLET PO SCH (08:21)
[2016-08-17] MEDS: MULTIVITAMINS 1 CAP CAPSULE PO SCH (08:21)
[2016-08-17] MEDS: SACCHAROMYCES BOULARDII 250 MG CAPSULE PO SCH (08:21)
[2016-08-17] MEDS: LISINOPRIL 40 MG TABLET PO SCH (08:22)
--- NOTE | 2016-08-17 08:31 | DS ---
(1) Chronic respiratory failure with hypoxia Problem: Chronic (2) COPD with acute exacerbation Problem: Acute (3) Fibromyalgia Problem: Chronic (4) Hypertension Problem: Chronic Qualifiers: Hypertension type: essential hypertension (5) Hypothyroidism (acquired) Problem: Chronic (6) Acute CHF (congestive heart failure) Problem: Resolved Qualifiers: Congestive heart failure type: diastolic Qualified Code(s): I50.31 - Acute diastolic (congestive) heart failure (7) Septicemia, Pseudomonas Problem: Resolved (8) Normochromic normocytic anemia Problem: Chronic (9) Atrial fibrillation Problem: Chronic Qualifiers: Atrial fibrillation type: chronic Qualified Code(s): I48.2 - Chronic atrial fibrillation Description of Stay: Carrol Bergeron, is a 76-year-old white female, with multiple medical problems in the past, who was admitted on 07/31/2016 for shortness of breath, fever and altered mental status. Her white blood cell count , BNP, LFT's were elevated. Her CXR showed pulmonary congestion. She was admitted with the working impression of acute COPD exacerbation likely due to acute bronchitis versus beginning pneumonia behind the pulmonary congestion; Congestive heart failure with chest x-ray chest x-ray showing pulmonary congestion/elevated BNP; Passive congestion of the liver versus infectious etiology for her elevated liver function tests; Altered mental status secondary to delirium /acute toxic encephalopathy from sepsis. She was started on IV Rocephin and metformin, IV solumedrol and breathing treatments. Her blood cultures grew gram-negative bacilli specifically rods x 2 bottles. Her Rocephin was changed to cefepime in anticipation of pseudomonas. White blood cell continued to improve. IV Lasix was also started on the patient for pulmonary congestion. Echocardiogram showed normal ejection fraction, positive diastolic dysfunction with an RSVP of 45 likely pulmonary hypertension. Her liver function tests started to improve after Lasix was started. He US showed dilated ducts but could be normal for postcholecystectomy. Her CXR showed resolution of her pulmonary edema but no mention of acute infiltrates. Her mentation also improved after IV antibiotics were started. Blood culture came back positive for Pseudomonas, only intermediate sensitivity to cefepime. Her antibiotics was changed to meropenem . Her metformin, IV Lasix and prednisone were stopped . When she was stable, she was transferred to residential floor for 6 more days of IV meropenem to complete a two-week course of IV antibiotics for her Pseudomonas septicemia/ bacteremia. Physical therapy continued to assist her with strengthening. She has now completed her antibiotic course and is ready to go home. She uses O2 at home, 2 Liters/minute by nasal canula whenever sleeping. Procedures Performed: none Discharge Disposition: Home self care Disposition: Home self-care Condition: Good Discharge Activity: Activity as tolerated Discharge Diet: Low salt Problem Oriented Discharge Instructions to Patient/Family: Heart Failure, Easy- to-Read, CHF Patient Instructions, Sepsis, Adult Additional Patient Instructions (free text): FOLLOW UP WITH DR PETERS IN 2 WEEKS. Prescriptions (Any new or edited meds): Rivaroxaban [Xarelto] 20 mg PO DAILY #30 tab Complete Home Medications List: Complete Home Medication List: Citalopram Hydrobromide [Citalopram HBr] 40 mg PO DAILY 06/22/12 Lisinopril 40 mg PO DAILY 06/22/12 Atorvastatin Calcium [Lipitor] 20 mg PO DAILY 11/09/14 Budesonide/Formoterol Fumarate [Symbicort 160-4.5 Mcg Inhaler] 2 puff IH BID Levothyroxine Sodium [Synthroid] 75 mcg PO DAILY 11/09/14 Multivitamins [Multivitamin Bianca] 1 cap PO DAILY 11/09/14 Diltiazem HCl [Cardizem Cd] 180 mg PO DAILY 07/31/16 Acetaminophen [Tylenol] 650 mg PO Q6H PRN #0 tablet 08/12/16 Albuterol Sulfate/Ipratropium [Duoneb 2.5-0.5MG/3ML Soln] 3 ml IH Q6HRT nebu Benzocaine [Orabase] 1 appl MM PRN PRN #0 tube 08/12/16 Beta-Carotene(A) W-C , E/Min [Ocuvite] 1 tab PO DAILY tablet 08/12/16 Rivaroxaban [Xarelto] 20 mg PO DAILY #30 tab 08/17/16
[2016-08-17 08:45] VITALS: BP 153/67
== END 2016-08-17 11:02 | disposition home or self-care (01) | DRG 815 ==
LOC: MS 12:02
PROVIDERS: ADMIT Internal Medicine; ATTEND Internal Medicine
DX: D72.829 Elevated white blood cell count, unspecified (principal); J44.1 Chronic obstructive pulmonary disease with (acute) exacerbation; Z79.2 Long term (current) use of antibiotics; I10 Essential (primary) hypertension; E78.2 Mixed hyperlipidemia; I48.0 Paroxysmal atrial fibrillation

== ENCOUNTER 2016-11-05 06:21 | Observation (INO) | payer MEDICARE ==
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
--- OUTSIDE RECORDS SUMMARY | 2016-11-05 07:13 | XMS REPORT | Continuity of Care Document ---
:1940 Author Organization [facility] ([facility]) Address [address] [place] [address] Phone [phone] Care Team Providers Name Role Phone Umair Crawford Primary Care Provider [phone] Source Comments This disclosure is being made pursuant to the Care Everywhere program, applicable federal and state laws, and may not contain all informaitonavailable regarding this patient.[facility] ([facility]) Active Allergies and Adverse Reactions Allergen Noted Date Severity Reactions Comments Pneumococcal Vaccine 06/11/2011 Angioedema,Rash Current Medications Prescription Sig. Disp. Refills Start Date End Date Status lisinopril 40 mg Take 40 mg by Active tablet mouth daily. citalopram 40 mg Take 40 mg by Active tablet mouth daily. atorvastatin 20 mg Take 20 mg by Active tablet mouth every evening. levothyroxine 75 mcg Take 75 mcg by Active tablet mouth every morning before breakfast. diltiazem 180 mg ER Take 180 mg by Active capsule mouth daily. tiotropium (SPIRIVA) Use 18 mcg by Active 18 mcg inhalation inhalation capsule daily. albuterol 90 Use 2 Puffs by Active mcg/Actuation inhalation every inhaler 4 hours as needed. VIT C/VIT Take 1 tablet by Active E/LUTEIN/MIN/OMEGA-3 mouth daily. (OCUVITE PO) multivitamin tablet Take 1 tablet by Active mouth daily. sodium chloride 0.9 Flush catheter 300 mL 11 09/13/2015 Active % injection syringe with 10 ml normal saline 1 time daily, push only. budesonide-formotero Use 2 Puffs by Active l (SYMBICORT) inhalation every 160-4.5 morning. mcg/Actuation inhaler lactobacillus Take 1 tablet by Active acidophilus (BACID) mouth 2 times 1 billion-250 daily. cell-mg tablet ferrous sulfate 325 10/03/2016 Active mg (65 mg iron) tablet furosemide 40 mg Take 40 mg by 10/01/2016 Active tablet mouth daily. ipratropium Use 2 Puffs by Active (ATROVENT HFA) 17 inhalation 4 mcg/Actuation times daily. inhaler aspirin 81 mg EC Take 1 tablet 11 10/08/2016 Active tablet (81 mg total) by mouth daily. ciprofloxacin HCl Take 250 mg by 10/08/2016 Discontinued 250 mg tablet mouth 2 times daily. XARELTO 20 mg tablet Take 20 mg by 09/11/2016 10/08/2016 Discontinued mouth daily. Active Problems Problem Noted Date S/P cholecystectomy 11/23/2015 Calculous cholecystitis with obstruction 09/11/2015 Hip pain 06/22/2011 COPD (chronic obstructive pulmonary disease) 06/21/2011 Obesity, unspecified 06/21/2011 Essential hypertension 06/21/2011 Depression 06/21/2011 Other and unspecified hyperlipidemia 06/21/2011 Atrial fibrillation Overview: CARDIOVASCULAR PROCEDURES Echo/MUGA: Month Year 2009 Echo (Normal EF, Mild MR, Mild LVH, RVSP normal) - 11/16/2009 Stress Tests: Month Year 2008 All MPI (EF.62, Normal) - 03/29/2009 Resolved Problems Problem Noted Date Resolved Date Post-op pain 11/24/2015 11/24/2015 Right upper quadrant abdominal pain 11/24/2015 11/24/2015 Morbid obesity 09/14/2015 10/08/2016 Obstructive jaundice 09/11/2015 09/15/2015 Other physical therapy 06/22/2011 10/07/2016 Most Recent Encounters Date Type Specialty Providers Description 10/08/2016 Office Visit [facility] V[facility] Sera Santos MD Dx: Paroxysmal atrial fibrillation (Primary Dx) Immunizations Name Dates Previously Given Next Due Influenza, unspecified 06/03/2011 Social History Tobacco Use Types Packs/Day Years Used Date Former Smoker Cigarettes 1.5 30 Quit: 06/23/1985 Smokeless Tobacco: Never Used Alcohol Use Drinks/Week oz/Week Comments No Last Filed Vital Signs Vital Sign Reading Time Taken Blood Pressure 150/60 10/08/2016 10:37 AM CDT Pulse 82 10/08/2016 10:37 AM CDT Temperature 37.6 C (99.7 F) 11/24/2015 12:00 PM CDT Respiratory Rate 16 11/24/2015 12:00 PM CDT Height 1.524 m (5') 10/08/2016 10:37 AM CDT Weight 90.266 kg (199 lb) 10/08/2016 10:37 AM CDT Body Mass Index 38.86 10/08/2016 10:37 AM CDT Oxygen Saturation 95% 11/24/2015 12:00 PM CDT Plan of Care Date Type Specialty Providers Description 02/11/2017 Appointment Heart and Vascular Sera Santos MD Subj: Appointment [address] [place] [address] [phone] (Fax) Health Maintenance Due Date Last Done Comments Hepatitis B Vaccine (1 of 3 - Primary Series) 1940 Tdap Vaccine 1949 Lipid Disorder Screening 1956 Td Vaccine 1956 Mammogram 1978 Colonoscopy 05/10/1988 Zoster Vaccine 1998 Osteoporosis Screening (DXA Bone Density) 2003 Influenza Vaccine: Seasonal (Season Ended) 2017 06/03/2011 Results from Last 3 Months Not on file
[2016-11-05] MEDS ORDERED: ONDANSETRON HCL/PF 2 MG/ML VIAL IV ONE (07:16)
[2016-11-05] MEDS ORDERED: HYDROmorphone HCL 1 MG/ML DISP.SYRIN IV ONE (07:17)
[2016-11-05] MEDS ORDERED: ONDANSETRON HCL/PF 2 MG/ML VIAL ONE (07:21)
[2016-11-05] MEDS ORDERED: HYDROmorphone HCL 1 MG/ML DISP.SYRIN ONE (07:21)
[2016-11-05 07:57] LABS: Hematocrit 33.4 % (37.0-47.0); Hemoglobin 10.8 gm/dL (12.5-16.0); Mean Cell Volume 87.2 fl (78-100); Mean Corpuscular Hemoglobin 28.2 pg (27-31); Mean Corpuscular Hgb Conc 32.3 g/dl (32-36); Mean Platelet Volume 9.7 fl (6.0-9.5); Platelet Count 150 K/mm3 (150-450); Red Blood Count 3.83 M/mm3 (4.2-5.4); Red Cell Distribution Width 14.6 % (11.5-14.0); White Blood Count 4.6 K/mm3 (4.0-10.5)
[2016-11-05 08:03] LABS: Total Cells Counted 100
[2016-11-05 08:07] LABS: INR 1.1 INR (0.90-1.10); Prothrombin Time (Patient) 11.4 Seconds (9.4-11.4)
[2016-11-05 08:13] LABS: Albumin * 3.5 gm/dl (3.4-5.0); Anion Gap 11.3 mmol/L (6.8-13.8); BUN/Creatinine Ratio 27.7 (9.0-21.6); Bilirubin, Total 0.7 mg/dL (0.0-1.1); Ca. Corrected For Albumin 9.3 mg/dL (8.4-10.2); Calcium * 9.2 mg/dL (7.9-10.9); Carbon Dioxide 29.7 mmol/L (24-32.6); Total Protein 7.2 gm/dL (6.2-8.2)
[2016-11-05 08:26] LABS: Atypical (Reactive) Lymph 3 % (0-2); Band 4 % (0-2.0); Immature Granulocyte 3 (0-1); Lymphocyte 11 % (20-51); Monocyte 6 % (0-9); Neutrophil 73 % (42-75); Neutrophil # 3.4 K/mm3 (1.3-6.0); Platelet Estimate Normal (NORMAL); Tear Drop Cells Trace
[2016-11-05 08:27] LABS: Target Cells Trace
--- OUTSIDE RECORDS SUMMARY | 2016-11-05 10:21 | XMS REPORT | Continuity of Care Document ---
:1940 Author Organization [facility] ([facility]) Address [address] [place] [address] Phone [phone] Care Team Providers Name Role Phone Umair Crawford Primary Care Provider [phone] Source Comments This disclosure is being made pursuant to the Care Everywhere program, applicable federal and state laws, and may not contain all informaitonavailable regarding this patient.[facility] ([facility]) Active Allergies and Adverse Reactions Allergen [...] MD Subj: Appointment [address] [address] [phone] (Fax) Health Maintenance Due Date Last Done Comments Hepatitis B Vaccine (1 of 3 - Primary Series) 1940 Tdap Vaccine 1949 Lipid Disorder Screening 1956 Td Vaccine 1956 Mammogram 1978 Colonoscopy 05/10/1988 Zoster Vaccine 1998 Osteoporosis Screening (DXA Bone Density) 2003 Influenza Vaccine: Seasonal (Season Ended) 2017 06/03/2011 Results from Last 3 Months Not on file
[2016-11-05] MEDS ORDERED: ACETAMINOPHEN 325 MG TABLET PO PRN (10:39)
[2016-11-05] MEDS: MORPHINE SULFATE 2 MG/ML DISP.SYRIN IV PRN ×2 (11:24→17:21)
[2016-11-05] MEDS ORDERED: ALBUTEROL SULFATE/IPRATROPIUM 3 ML NEBU IH SCH (13:00)
[2016-11-05] MEDS: oxyCODONE HCL/ACETAMINOPHEN 1 TAB TABLET PO PRN ×2 (14:03→20:10)
[2016-11-05] MEDS: LACTOBACILLUS ACIDOPHILUS 100 CAP BTL PO SCH ×2 (14:05→17:04)
--- NOTE | 2016-11-05 16:11 | HP ---
Chief Complaint - Chief Complaint Date of Service: 11/05/16 Time of Service: 16:01 Chief Complaint: left thigh pain History of Present Illness: Carrol Bergeron , is a 76-year-old white female, with previous medical history of hypertension, hypothyroidism, COPD, osteoarthritis, fibromyalgia who was admitted on 11/05/2016 because of left thigh pain. The patient woke up around 4 :30 in the morning and tried to use her commode . She held the commode with both hands and as she turned around, her left leg gave out and she lost her balance. She fell down and immediately felt pain from her above her left knee going up to her right left hip area. She was then brought to our ER where imaging study showed her implants in pace w/o complications but had an inferior pubic ramus fracture. She was then admitted for further observation and pain control. - Patient's Past Medical History Patient History - Medical: Anemia, Depression, Fibromyalgia, Hypothyroidism, Obesity, Osteoarthritis Patient History - Cardiac/Respiratory: Atrial Fibrillation, CHF, COPD, Hypertension, Hyperlipidemia, Home O2 Use Patient History - Cancer: Lung, Cervical Patient History - Surgical Procedures: Appendectomy, Cataracts, Cholecystectomy , Colonoscopy, Hysterectomy, Total Hip Replacement, T & A, Other Patient History - Other: None LMP (females 10-50): Menopausal - Family History Mother Family History - Medical: , No pertinent hx Family History - Cardiac/Respiratory: CHF Family History - Cancer: No pertinent family hx Father Family History - Medical: , No pertinent hx Family History - Cardiac/Respiratory: No pertinent hx Family History - Cancer: Stomach - Social History Living Situations: home Abuse History: No History of abuse Psych History: Hx of Depression, Current tx/ever been on anti-depressants or anti-anxiety meds Smoking Status: Former smoker Have you smoked in the past 12 months: No Do you dip or chew tobacco: No Patient requests Smoking Cessation Consult: No Initiate information on Smoking Cessation: No Alcohol Use: none Drug Use: none - Immunizations Immunizations Up to Date: Yes Hx Pneumococcal Vaccination: No History of Influenza Vaccine: Yes Review Of Systems (GEN) - Review of Systems Generalized/Overall Review: Absent: Weakness, Chills, Fever EENTM: Present: No Symptoms Reported Respiratory: Present: Shortness of Breath. Absent: Cough, Wheezing Cardiac: Present: Edema. Absent: Chest Pain, Palpitations Abdominal: Absent: Nausea, Vomiting Genitourinary: Absent: Urgency, Frequency Musculoskeletal: Present: Joint Pain Allergies/Adverse Reactions: Allergies Allergy/AdvReac Type Severity Reaction Status Date / Time metoprolol AdvReac Intermediate DIZZINESS, Verified 11/05/16 10:27 DYSPNEA pneumococcal vaccine AdvReac Mild RASH AT Verified 11/05/16 10:27 [Pneumococcal Vaccine] INJECTION SITE Home Medications: HOME MEDICATIONS Citalopram Hydrobromide [Citalopram HBr] 40 mg PO DAILY 06/22/12 [Last Taken ] Lisinopril 40 mg PO DAILY 06/22/12 [Last Taken 10/08/15] Budesonide/Formoterol Fumarate [Symbicort 160-4.5 Mcg Inhaler] 2 puff IH BID [Last Taken 10/08/15] Levothyroxine Sodium [Synthroid] 75 mcg PO DAILY 11/09/14 [Last Taken 10/08/15] Multivitamins [Multivitamin Bianca] 1 cap PO DAILY 11/09/14 [Last Taken 10/08/15 ] Diltiazem HCl [Cardizem Cd] 180 mg PO DAILY 07/31/16 [Last Taken Unknown] Albuterol Sulfate/Ipratropium [Duoneb 2.5-0.5MG/3ML Soln] 3 ml IH Q6HRT nebu [Last Taken Unknown] Beta-Carotene(A) W-C , E/Min [Ocuvite] 1 tab PO DAILY tablet 08/12/16 [Last Taken Unknown] Albuterol Sulfate [Ventolin Hfa] 2 puff IH Q4H 11/05/16 [Last Taken Unknown] Aspirin 81 mg PO DAILY 11/05/16 [Last Taken Unknown] Budesonide [Pulmicort Respules] 2 ml IH BID 11/05/16 [Last Taken Unknown] Ferrous Sulfate 325 mg PO DAILY 11/05/16 [Last Taken Unknown] Furosemide [Lasix] 40 mg PO DAILY 11/05/16 [Last Taken Unknown] Lactobacillus Acidophilus [Acidophilus] 1 each PO TID 11/05/16 [Last Taken Unknown] Nystatin [Nystop] 1 appl TP BID 11/05/16 [Last Taken Unknown] Tiotropium [place] [Spiriva] 1 cap IH DAILY 11/05/16 [Last Taken Unknown] Exam - Exam Vital Signs: Vital Signs - Last Taken Temp 36.6 C 11/05/16 14:30 Pulse 56 L 11/05/16 14:30 Resp 20 11/05/16 14:30 BP 128/51 11/05/16 14:30 Pulse Ox 96 11/05/16 14:30 Constitutional: Present: Alert, Oriented x3, Cooperative, Morbidly obese ENT Exam: Present: hearing grossly normal Eye Exam: bilateral eye: normal inspection, PERRL, EOMI Neck: Present: supple Back Exam: Present: no CVA tenderness Breasts: Present: Exam deferred Respiratory: Present: decreased breath sounds, No rales, No wheezing Cardiovascular/Chest: Present: regular rate, rhythm, no JVD Abdomen: Present: Normal bowel sounds, soft, nontender, nondistended Extremity: Present: no calf tenderness, pedal edema Diagnostic Studies: Laboratory Results WBC 4.6 K/mm3 (4.0-10.5) 11/05/16 07:50 RBC 3.83 M/mm3 (4.2-5.4) L 11/05/16 07:50 Hgb 10.8 gm/dL (12.5-16.0) L 11/05/16 07:50 Hct 33.4 % (37.0-47.0) L 11/05/16 07:50 MCV 87.2 fl (78-100) 11/05/16 07:50 MCH 28.2 pg (27-31) 11/05/16 07:50 MCHC 32.3 g/dl (32-36) 11/05/16 07:50 RDW 14.6 % (11.5-14.0) H 11/05/16 07:50 Plt Count 150 K/mm3 (150-450) 11/05/16 07:50 MPV 9.7 fl (6.0-9.5) H 11/05/16 07:50 Neutrophils % (Manual) 73 % (42-75) 11/05/16 07:50 Band Neuts % (Manual) 4 % (0-2.0) H 11/05/16 07:50 Lymphocytes % (Manual) 11 % (20-51) L 11/05/16 07:50 Monocytes % (Manual) 6 % (0-9) 11/05/16 07:50 Immature Granulocytes 3 (0-1) H 11/05/16 07:50 Neutrophils # (Manual) 3.4 K/mm3 (1.3-6.0) 11/05/16 07:50 Lymphocytes # (Manual) 0.5 k/mm3 (1.5-3.5) L 11/05/16 07:50 Monocytes # (Manual) 0.3 k/mm3 (0.0-1.0) 11/05/16 07:50 Atypic/Reactive Lymphs 3 % (0-2) H 11/05/16 07:50 Platelet Estimate Normal (NORMAL) 11/05/16 07:50 Target Cells Trace 11/05/16 07:50 Tear Drop Cells Trace 11/05/16 07:50 Elliptocytes Trace 11/05/16 07:50 PT 11.4 Seconds (9.4-11.4) 11/05/16 07:50 INR (Anticoag Therapy) 1.10 INR (0.90-1.10) 11/05/16 07:50 Sodium 141 mmol/L (132-142) 11/05/16 07:50 Plasma Sodium 142 mmol/L (130-142) 11/05/16 07:50 Potassium 4.0 mmol/L (3.4-4.6) 11/05/16 07:50 Chloride 104 mmol/L (97-106) 11/05/16 07:50 Carbon Dioxide 29.7 mmol/L (24-32.6) 11/05/16 07:50 Anion Gap 11.3 mmol/L (6.8-13.8) 11/05/16 07:50 BUN 18 mg/dL (3-23) 11/05/16 07:50 Creatinine 0.65 mg/dL (0.4-1.4) 11/05/16 07:50 Est GFR (Non-Af Amer) 94 mL/min (60-130) 11/05/16 07:50 BUN/Creatinine Ratio 27.7 (9.0-21.6) H 11/05/16 07:50 Random Glucose 159 mg/dL (70-110) H 11/05/16 07:50 Calcium 9.2 mg/dL (7.9-10.9) 11/05/16 07:50 Calcium Adj for Albumin 9.3 mg/dL (8.4-10.2) 11/05/16 07:50 Total Bilirubin 0.7 mg/dL (0.0-1.1) 11/05/16 07:50 AST 29 U/L (0-48) 11/05/16 07:50 ALT 34 U/L (19-67) 11/05/16 07:50 Alkaline Phosphatase 80 U/L (50-170) 11/05/16 07:50 Total Protein 7.2 gm/dL (6.2-8.2) 11/05/16 07:50 Albumin 3.5 gm/dl (3.4-5.0) 11/05/16 07:50 Assessment/Plan - Assessment/Plan (1) Fall Assessment: lost her balance Problem: Acute Qualifiers: Encounter type: initial encounter Qualified Code(s): W19.XXXA - Unspecified fall, initial encounter (2) Pelvic fracture Assessment: left inferior pubic ramus. refer to ortho/PT . weight bear to tolerance. Problem: Acute Qualifiers: Encounter type: initial encounter Pelvic bone location: pubis Fracture type: closed Fracture alignment: nondisplaced Laterality: left Qualified Code(s): S32.502A - Unspecified fracture of left pubis, initial encounter for closed fracture (3) Atrial fibrillation Problem: Chronic Qualifiers: Atrial fibrillation type: paroxysmal Qualified Code(s): I48.0 - Paroxysmal atrial fibrillation (4) COPD (chronic obstructive pulmonary disease) Problem: Chronic Qualifiers: COPD type: emphysema Emphysema type: unspecified Qualified Code(s): J43.9 - Emphysema, unspecified (5) Fibromyalgia Problem: Chronic (6) HLD (hyperlipidemia) Problem: Chronic (7) HTN (hypertension) Problem: Chronic Qualifiers: Hypertension type: essential hypertension Qualified Code(s): I10 - Essential (primary) hypertension (8) Hypothyroidism (acquired) Problem: Chronic
[2016-11-05] MEDS ORDERED: RIVAROXABAN 20 MG TABLET PO SCH (17:00)
[2016-11-05] MEDS: FLUTICASONE/SALMETEROL 14 PUFF DISK.W.DEV IH SCH (20:10)
[2016-11-05] MEDS: ALBUTEROL SULFATE/IPRATROPIUM 3 ML NEBU IH SCH (20:15)
[2016-11-05] MEDS ORDERED: ALBUTEROL SULFATE 2.5 MG/3 ML VIAL.NEB IH PRN (20:23)
[2016-11-06] MEDS: oxyCODONE HCL/ACETAMINOPHEN 1 TAB TABLET PO PRN ×3 (02:17→22:44)
[2016-11-06] MEDS: ALBUTEROL SULFATE/IPRATROPIUM 3 ML NEBU IH SCH ×2 (06:02→19:23)
[2016-11-06] MEDS: LEVOTHYROXINE SODIUM 75 MCG TABLET PO SCH (07:09)
--- NOTE | 2016-11-06 08:40 | DS ---
(1) Fall Problem: Acute Qualifiers: Encounter type: initial encounter Qualified Code(s): W19.XXXA - Unspecified fall, initial encounter (2) Pelvic fracture Diagnosis(s): inferior pubic ramus, left Problem: Acute Qualifiers: Encounter type: initial encounter Pelvic bone location: pubis Fracture type: closed Fracture alignment: nondisplaced Laterality: left Qualified Code(s): S32.502A - Unspecified fracture of left pubis, initial encounter for closed fracture (3) Atrial fibrillation Problem: Chronic Qualifiers: Atrial fibrillation type: paroxysmal Qualified Code(s): I48.0 - Paroxysmal atrial fibrillation (4) COPD (chronic obstructive pulmonary disease) Problem: Chronic Qualifiers: COPD type: emphysema Emphysema type: unspecified Qualified Code(s): J43.9 - Emphysema, unspecified (5) Fibromyalgia Problem: Chronic (6) HLD (hyperlipidemia) Problem: Chronic (7) HTN (hypertension) Problem: Chronic Qualifiers: Hypertension type: essential hypertension Qualified Code(s): I10 - Essential (primary) hypertension (8) Hypothyroidism (acquired) Problem: Chronic Description of Stay: Carrol Bergeron , is a 76-year-old white female, with previous medical history of hypertension, hypothyroidism, COPD, osteoarthritis, fibromyalgia who was admitted on 11/05/2016 because of left thigh pain. The patient woke up around 4 :30 in the morning and tried to use her commode . She held the commode with both hands and as she turned around, her left leg gave out and she lost her balance. She fell down and immediately felt pain from her above her left knee going up to her left hip area. She was then brought to our ER where imaging study showed her implants in place w/o complications but had an inferior pubic ramus fracture. She was then admitted for further observation and pain control. She had PT. Ortho saw her and recommended weight bear to tolerance and follow up with them in 6 weeks. The family wants to go to SNF for further PT and strengthening exercises before going home. Discharge was postponed as we are trying to arrange NH placement. ADDENDUM: THIS WILL SERVE MY PROGRESS NOTES FOR 11/06/16. Procedures Performed: none Discharge Disposition: Home self care Disposition: Home self-care Condition: Good Discharge Activity: Other - weight bear to tolerance Discharge Diet: Consistent carbs Referrals: Umair Crawford MD [Primary Care Provider] - Additional Patient Instructions (free text): Follow up with PCP in 4 weeks. Complete Home Medications List: Complete Home Medication List: Citalopram Hydrobromide [Citalopram HBr] 40 mg PO DAILY 06/22/12 Lisinopril 40 mg PO DAILY 06/22/12 Budesonide/Formoterol Fumarate [Symbicort 160-4.5 Mcg Inhaler] 2 puff IH BID Levothyroxine Sodium [Synthroid] 75 mcg PO DAILY 11/09/14 Multivitamins [Multivitamin Bianca] 1 cap PO DAILY 11/09/14 Diltiazem HCl [Cardizem Cd] 180 mg PO DAILY 07/31/16 Albuterol Sulfate/Ipratropium [Duoneb 2.5-0.5MG/3ML Soln] 3 ml IH Q6HRT nebu Beta-Carotene(A) W-C , E/Min [Ocuvite] 1 tab PO DAILY tablet 08/12/16 Albuterol Sulfate [Ventolin Hfa] 2 puff IH Q4H 11/05/16 Aspirin 81 mg PO DAILY 11/05/16 Budesonide [Pulmicort Respules] 2 ml IH BID 11/05/16 Ferrous Sulfate 325 mg PO DAILY 11/05/16 Furosemide [Lasix] 40 mg PO DAILY 11/05/16 Lactobacillus Acidophilus [Acidophilus] 1 each PO TID 11/05/16 Nystatin [Nystop] 1 appl TP BID 11/05/16 Tiotropium [place] [Spiriva] 1 cap IH DAILY 11/05/16
--- NOTE | 2016-11-06 08:58 | CONS ---
[facility] - General Date of Service: 11/06/16 Narrative: Carrol is a 76-year-old female with recent history of fall. She states that she was getting up to go to a commode at that was at her bedside at home. Patient states that while she was sitting on the commode she went to get up out the onset of pain to the left pelvis. Patient states that she has had a history of a left total hip arthroplasty in 2007. Patient states that it she has had a revision of this. Patient reports immediate onset of pain into her left hip. Patient was transported to [facility]. X-rays were obtained revealing a nondisplaced inferior pubic ramus fracture. Total hip arthroplasty appears to be intact. As admitted for pain control and physical therapy. Patient was seen today for consultation. She reports that she was able to sit up to the side of the bed yesterday but has not attempted any ambulation. She complains of pain with any movement to her left hip. Denies any numbness or tingling down the left leg. Patient states that she had been getting along fine up until this point. - History of Present Illness Allergies/Adverse Reactions: Allergies metoprolol Adverse Reaction (Intermediate, Verified 11/05/16 10:27) DIZZINESS, DYSPNEA pneumococcal vaccine [Pneumococcal Vaccine] Adverse Reaction (Mild, Verified 10:27) RASH AT INJECTION SITE Home Medications: Home Medications Medication Instructions Recorded Last Taken Citalopram Hydrobromide 40 mg PO DAILY 06/22/12 10/08/15 [Citalopram HBr] Lisinopril 40 mg PO DAILY 06/22/12 10/08/15 Budesonide/Formoterol Fumarate 2 puff IH BID 11/09/14 10/08/15 [Symbicort 160-4.5 Mcg Inhaler] Levothyroxine Sodium [Synthroid] 75 mcg PO DAILY 11/09/14 10/08/15 Multivitamins [Multivitamin Bianca] 1 cap PO DAILY 11/09/14 10/08/15 Diltiazem HCl [Cardizem Cd] 180 mg PO DAILY 07/31/16 Unknown Albuterol Sulfate [Ventolin Hfa] 2 puff IH Q4H 11/05/16 Unknown Aspirin 81 mg PO DAILY 11/05/16 Unknown Budesonide [Pulmicort Respules] 2 ml IH BID 11/05/16 Unknown Ferrous Sulfate 325 mg PO DAILY 11/05/16 Unknown Furosemide [Lasix] 40 mg PO DAILY 11/05/16 Unknown Lactobacillus Acidophilus 1 each PO TID 11/05/16 Unknown [Acidophilus] Nystatin [Nystop] 1 appl TP BID 11/05/16 Unknown Tiotropium [place] [Spiriva] 1 cap IH DAILY 11/05/16 Unknown - Patient's Past Medical History Patient History - Medical: Anemia, Depression, Fibromyalgia, Hypothyroidism, Obesity, Osteoarthritis Patient History - Cardiac/Respiratory: Atrial Fibrillation, CHF, COPD, Hypertension, Hyperlipidemia, Home O2 Use Patient History - Cancer: Lung, Cervical Patient History - Surgical Procedures: Appendectomy, Cataracts, Cholecystectomy , Colonoscopy, Hysterectomy, Total Hip Replacement, T & A, Other Patient History - Other: None LMP (females 10-50): Menopausal - Family History Mother Family History - Medical: , No pertinent hx Family History - Cardiac/Respiratory: CHF Family History - Cancer: No pertinent family hx Father Family History - Medical: , No pertinent hx Family History - Cardiac/Respiratory: No pertinent hx Family History - Cancer: Stomach - Social History Living Situations: home Abuse History: No History of abuse Psych History: Hx of Depression, Current tx/ever been on anti-depressants or anti-anxiety meds Smoking Status: Former smoker Have you smoked in the past 12 months: No Do you dip or chew tobacco: No Patient requests Smoking Cessation Consult: No Initiate information on Smoking Cessation: No Alcohol Use: none Drug Use: none - Immunizations Immunizations Up to Date: Yes Hx Pneumococcal Vaccination: No History of Influenza Vaccine: Yes Procedures ANESTH INJECT-SPIN CANAL (11/11/14) CATARAC PHACOEMULS/ASPIR (06/05/09) CL REDUC DISLOC-HIP (10/20/07) COMPLETE SIALOADENECTOMY (12/13/04) CONTRAST ARTHROGRAM (01/11/08) DRAINAGE OF BLADDER WITH DRAINAGE DEVICE, VIA OPENING (07/31/16) ENDOSC POLYPECTOMY OF LG INTEST (03/07/09) INJECT STEROID (11/11/14) INJECT/INFUSE NEC (08/06/07) INJECTION INTO JOINT (08/06/07) INSERT LENS AT CATAR EXT (06/05/09) INTRODUCE OF ANTI-INFLAM INTO EPIDURAL SPACE, PERC APPROACH (03/23/15) INTRODUCE OF LOCAL ANESTH INTO EPIDURAL SPACE, PERC APPROACH (03/23/15) SPINAL CANAL INJECT NEC (11/11/14) TOTAL HIP REPLACEMENT (08/31/07) ULTRASONOGRAPHY OF RIGHT AND LEFT HEART (08/01/16) Medications - Medications Current Medications: Current Medications Albuterol/Ipratropium (Duoneb 2.5-0.5mg/3ml Soln) 3 ml IH BIDRT [facility] Stop: 12/05/16 19:01 Last Admin: 11/06/16 06:02 Dose: 3 ml Lactobacillus Acidophilus (Bacid) 1 cap PO TID [facility] Stop: 12/05/16 13:01 Last Admin: 11/05/16 17:04 Dose: 1 cap Levothyroxine Sodium (Synthroid) 75 mcg PO DAILY@0700 [facility] Stop: 12/06/16 07:01 Last Admin: 11/06/16 07:09 Dose: 75 mcg Morphine Sulfate (Morphine Sulfate) 2 mg IV Q4H PRN PRN Reason: Pain Stop: 12/05/16 10:41 Last Admin: 11/05/16 17:21 Dose: 2 mg Oxycodone/Acetaminophen (Percocet 5 Mg/325 Mg) 1 tab PO Q6H PRN PRN Reason: Pain Stop: 12/05/16 10:40 Last Admin: 11/06/16 02:17 Dose: 1 tab Fluticasone/Salmeterol (Advair 500-50 Diskus) 1 puff IH BID [facility] Stop: 12/05/16 21:01 Last Admin: 11/05/16 20:10 Dose: 1 puff Physical Examination - Exam Narrative: Examination today of left lower extremity reveals good pulses sensation intact. His good foot ankle range of motion. She has pain with any hip range of motion attempt. We'll to actively. Patient is rather obese. His tenderness noted to palpation around the area of the pelvis. No other signs of injury are noted. Calf, thigh, is soft. Negative Homans test. X-rays including plain films and CT scan were reviewed. Total hip arthroplasty appears to be intact without signs of loosening or subsidence. She has the noted inferior pubic ramus fracture which is essentially nondisplaced ramus. She also has a nondisplaced superior pubic ramus fracture. There is no signs of widening to the SI joint. There is no signs of widening at the symphysis pubis. Vital Signs: Vital Signs - Last Taken Temp 36.3 C L 11/06/16 06:57 Pulse 68 11/06/16 06:57 Resp 18 11/06/16 06:57 BP 158/47 11/06/16 06:57 Pulse Ox 95 11/06/16 06:57 O2 Oxygen Delivery Method Nasal Cannula - Results and Findings: Narrative: Assessment 1 left pubic superior inferior pubic ramus fractures essentially undisplaced no signs of loosening to total hip arthroplasty Plan she'll be evaluated by physical therapy for weightbearing as tolerated on left lower extremity with use of walker. She will require follow-up in our office in approximately 6 weeks with repeat x-rays of the pelvis. Due to patient's size, she should have these x-rays completed at the hospital prior to evaluation in our office. We'll be available for additional systems as needed - Assessments/Findings (1) Pelvic fracture Problem: Acute Qualifiers: Encounter type: initial encounter Pelvic bone location: pubis Fracture type: closed Fracture alignment: nondisplaced Laterality: left Qualified Code(s): S32.502A - Unspecified fracture of left pubis, initial encounter for closed fracture
[2016-11-06] MEDS: FLUTICASONE/SALMETEROL 14 PUFF DISK.W.DEV IH SCH ×2 (09:47→20:05)
[2016-11-06] MEDS: ASPIRIN 81 MG TAB.CHEW PO SCH (09:47)
[2016-11-06] MEDS: CITALOPRAM HYDROBROMIDE 20 MG TABLET PO SCH (09:48)
[2016-11-06] MEDS: DILTIAZEM HCL 180 MG CAP.SR.24H PO SCH (09:48)
[2016-11-06] MEDS: LACTOBACILLUS ACIDOPHILUS 100 CAP BTL PO SCH ×3 (09:48→16:38)
[2016-11-06] MEDS: FERROUS SULFATE 325 MG TABLET PO SCH (09:48)
[2016-11-06] MEDS: FUROSEMIDE 40 MG TABLET PO SCH (09:48)
[2016-11-06] MEDS: MULTIVITAMINS 1 CAP CAPSULE PO SCH (09:48)
[2016-11-06] MEDS: BETA-CAROTENE(A) W-C , E/MIN 1 TAB TABLET PO SCH (09:48)
[2016-11-06] MEDS: TIOTROPIUM BROMIDE 5 CAP INHALER IH SCH (09:49)
[2016-11-06] MEDS: LISINOPRIL 40 MG TABLET PO SCH (09:49)
[2016-11-06] MEDS: MORPHINE SULFATE 2 MG/ML DISP.SYRIN IV PRN ×2 (10:42→16:30)
[2016-11-06] MEDS: ALBUTEROL SULFATE 2.5 MG/3 ML VIAL.NEB IH SCH ×2 (20:01→20:06)
[2016-11-07] MEDS: ALBUTEROL SULFATE/IPRATROPIUM 3 ML NEBU IH SCH ×2 (06:10→19:36)
[2016-11-07] MEDS: LEVOTHYROXINE SODIUM 75 MCG TABLET PO SCH (07:02)
--- NOTE | 2016-11-07 07:37 | PN ---
Progess Note - Interim Narrative: 11/07/16 07:36 Still awaiting NH placement.
[2016-11-07] MEDS: MORPHINE SULFATE 2 MG/ML DISP.SYRIN IV PRN ×3 (07:42→19:35)
[2016-11-07] MEDS: oxyCODONE HCL/ACETAMINOPHEN 1 TAB TABLET PO PRN ×3 (09:47→23:45)
[2016-11-07] MEDS: LISINOPRIL 40 MG TABLET PO SCH (09:48)
[2016-11-07] MEDS: TIOTROPIUM BROMIDE 5 CAP INHALER IH SCH (09:48)
[2016-11-07] MEDS: FLUTICASONE/SALMETEROL 14 PUFF DISK.W.DEV IH SCH ×2 (09:49→20:41)
[2016-11-07] MEDS: FUROSEMIDE 40 MG TABLET PO SCH (09:50)
[2016-11-07] MEDS: ASPIRIN 81 MG TAB.CHEW PO SCH (09:50)
[2016-11-07] MEDS: MULTIVITAMINS 1 CAP CAPSULE PO SCH (09:50)
[2016-11-07] MEDS: CITALOPRAM HYDROBROMIDE 20 MG TABLET PO SCH (09:50)
[2016-11-07] MEDS: DILTIAZEM HCL 180 MG CAP.SR.24H PO SCH (09:50)
[2016-11-07] MEDS: FERROUS SULFATE 325 MG TABLET PO SCH (09:50)
[2016-11-07] MEDS: LACTOBACILLUS ACIDOPHILUS 100 CAP BTL PO SCH ×3 (09:50→16:40)
[2016-11-07] MEDS: BETA-CAROTENE(A) W-C , E/MIN 1 TAB TABLET PO SCH (09:51)
[2016-11-07] MEDS ORDERED: BISACODYL 10 MG SUPP.RECT RC PRN (12:09)
--- NOTE | 2016-11-07 14:50 | PN ---
Subjective - Date and Time Seen Date: 11/07/16 Time: 14:47 Subjective Narrative: Patient having a very hard time transferring. Objective - Review of Systems Generalized/Overall Review: Reports: Weakness. Denies: Chills, Fever EENTM: Reports: No Symptoms Reported Respiratory: Denies: Cough, Shortness of Breath Cardiac: Denies: Chest Pain, Palpitations Abdominal: Denies: Nausea, Vomiting Genitourinary Symptoms: Denies: Urgency, Frequency Musculoskeletal Complaints: Reports: Joint Pain - Vitals Vitals: Last Vital Signs Temp 36.7 C 11/07/16 11:00 Pulse 66 11/07/16 11:00 Resp 18 11/07/16 11:00 BP 155/53 11/07/16 11:00 Pulse Ox 95 11/07/16 11:00 - Exam Constitutional: Present: Alert, Oriented x3, Cooperative ENT Exam: Present: hearing grossly normal Neck: Present: supple Breasts: Present: Exam deferred Respiratory: Present: decreased breath sounds, No rales, No wheezing Cardiovascular/Chest: Present: no JVD, no murmur, irregularly irregular Abdomen: Present: Normal bowel sounds, soft, nontender, nondistended Extremity: Present: no calf tenderness, pedal edema Cauti Physician Documentation - Urinary Catheter Management Urethral (Pineda) Date of Insertion: 11/05/16 Time of Insertion: 07:35 Date of Removal: 11/06/16 Time of Removal: 10:00 Assessment/Plan - Problems/Diagnosis (1) Fall Problem: Acute Qualifiers: Encounter type: initial encounter Qualified Code(s): W19.XXXA - Unspecified fall, initial encounter Narrative: doing PT. (2) Pelvic fracture Problem: Acute Qualifiers: Encounter type: initial encounter Pelvic bone location: pubis Fracture type: closed Fracture alignment: nondisplaced Laterality: left Qualified Code(s): S32.502A - Unspecified fracture of left pubis, initial encounter for closed fracture Narrative: continue with PT. awaiting NH placement (3) Atrial fibrillation Problem: Chronic Qualifiers: Atrial fibrillation type: paroxysmal Qualified Code(s): I48.0 - Paroxysmal atrial fibrillation Narrative: rate controlled . not on anticoagulation due to increased fall risk (4) COPD (chronic obstructive pulmonary disease) Problem: Chronic Qualifiers: COPD type: emphysema Emphysema type: unspecified Qualified Code(s): J43.9 - Emphysema, unspecified (5) Fibromyalgia Problem: Chronic (6) HLD (hyperlipidemia) Problem: Chronic (7) HTN (hypertension) Problem: Chronic Qualifiers: Hypertension type: essential hypertension Qualified Code(s): I10 - Essential (primary) hypertension (8) Hypothyroidism (acquired) Problem: Chronic
[2016-11-07] MEDS ORDERED: SENNOSIDES/DOCUSATE SODIUM 1 TAB TABLET PO SCH (21:00)
[2016-11-08] MEDS: oxyCODONE HCL/ACETAMINOPHEN 1 TAB TABLET PO PRN ×2 (05:45→12:02)
[2016-11-08] MEDS: ALBUTEROL SULFATE/IPRATROPIUM 3 ML NEBU IH SCH (06:15)
[2016-11-08] MEDS: LEVOTHYROXINE SODIUM 75 MCG TABLET PO SCH (06:39)
[2016-11-08] MEDS ORDERED: BISACODYL 5 MG TABLET.DR PO ONE (08:24)
[2016-11-08] MEDS ORDERED: BISACODYL 10 MG SUPP.RECT RC ONE (08:25)
[2016-11-08] MEDS: LACTOBACILLUS ACIDOPHILUS 100 CAP BTL PO SCH ×2 (09:05→13:16)
[2016-11-08] MEDS: DILTIAZEM HCL 180 MG CAP.SR.24H PO SCH (09:06)
[2016-11-08] MEDS: FERROUS SULFATE 325 MG TABLET PO SCH (09:06)
[2016-11-08] MEDS: CITALOPRAM HYDROBROMIDE 20 MG TABLET PO SCH (09:06)
[2016-11-08] MEDS: ASPIRIN 81 MG TAB.CHEW PO SCH (09:07)
[2016-11-08] MEDS: FUROSEMIDE 40 MG TABLET PO SCH (09:07)
[2016-11-08] MEDS: BETA-CAROTENE(A) W-C , E/MIN 1 TAB TABLET PO SCH (09:07)
[2016-11-08] MEDS: LISINOPRIL 40 MG TABLET PO SCH (09:07)
[2016-11-08] MEDS: MULTIVITAMINS 1 CAP CAPSULE PO SCH (09:07)
[2016-11-08] MEDS: FLUTICASONE/SALMETEROL 14 PUFF DISK.W.DEV IH SCH (09:08)
[2016-11-08] MEDS: TIOTROPIUM BROMIDE 5 CAP INHALER IH SCH (09:09)
[2016-11-08 10:39] VITALS: BP 155/56
--- NOTE | 2016-11-08 10:41 | DS ---
(1) Fall Problem: Acute Qualifiers: Encounter type: initial encounter Qualified Code(s): W19.XXXA - Unspecified fall, initial encounter (2) Pelvic fracture Problem: Acute Qualifiers: Encounter type: initial encounter Pelvic bone location: pubis Fracture type: closed Fracture alignment: nondisplaced Laterality: left Qualified Code(s): S32.502A - Unspecified fracture of left pubis, initial encounter for closed fracture (3) Atrial fibrillation Problem: Chronic Qualifiers: Atrial fibrillation type: paroxysmal Qualified Code(s): I48.0 - Paroxysmal atrial fibrillation (4) COPD (chronic obstructive pulmonary disease) Problem: Chronic Qualifiers: COPD type: emphysema Emphysema type: unspecified Qualified Code(s): J43.9 - Emphysema, unspecified (5) Fibromyalgia Problem: Chronic (6) HLD (hyperlipidemia) Problem: Chronic (7) HTN (hypertension) Problem: Chronic Qualifiers: Hypertension type: essential hypertension Qualified Code(s): I10 - Essential (primary) hypertension (8) Hypothyroidism (acquired) Problem: Chronic Description of Stay: Carrol Bergeron , is a 76-year-old white female, with previous medical history of hypertension, hypothyroidism, COPD, osteoarthritis, fibromyalgia who was admitted on 11/05/2016 because of left thigh pain. The patient woke up around 4 :30 in the morning and tried to use her commode . She held the commode with both hands and as she turned around, her left leg gave out and she lost her balance. She fell down and immediately felt pain from her above her left knee going up to her left hip area. She was then brought to our ER where imaging study showed her implants in place w/o complications but had an inferior pubic ramus fracture. She was then admitted for further observation and pain control. She had PT. Ortho saw her and recommended weight bear to tolerance and follow up with them in 6 weeks. She has a hard time and very slow to transfer. She is stable to be discharge to ID for further strengthening and PT. Procedures Performed: none Discharge Disposition: Other HealthCare facility Disposition: Other health care facility Condition: Good Discharge Activity: Activity as tolerated, Weight bearing - to tolerance Discharge Diet: Low salt, Low fat/chol Discharge Level of Care:: SNF - Correction Correction Therapy: Physicial Therapy Referrals: Umair Crawford MD [Primary Care Provider] - Additional Patient Instructions (free text): Follow up with PCP in 6 weeks when she follows up with Orthopedics. Prescriptions (Any new or edited meds): Acetaminophen [Tylenol] 650 mg PO Q6H PRN #30 tablet PRN Reason: Mild Pain Bisacodyl [Dulcolax Suppository] 10 mg RC DAILY PRN #10 supp.rect PRN Reason: Constipation Sennosides/Docusate Sodium [Senokot-S] 2 tab PO HS #60 tablet oxyCODONE HCL/ACETAMINOPHEN [Percocet 5 MG/325 MG] 1 tab PO Q6H PRN #30 tablet PRN Reason: Pain Complete Home Medications List: Complete Home Medication List: Citalopram Hydrobromide [Citalopram HBr] 40 mg PO DAILY 06/22/12 Lisinopril 40 mg PO DAILY 06/22/12 Levothyroxine Sodium [Synthroid] 75 mcg PO DAILY 11/09/14 Multivitamins [Multivitamin Bianca] 1 cap PO DAILY 11/09/14 Diltiazem HCl [Cardizem Cd] 180 mg PO DAILY 07/31/16 Albuterol Sulfate/Ipratropium [Duoneb 2.5-0.5MG/3ML Soln] 3 ml IH Q6HRT nebu Beta-Carotene(A) W-C , E/Min [Ocuvite] 1 tab PO DAILY tablet 08/12/16 Albuterol Sulfate [Ventolin Hfa] 2 puff IH Q4H 11/05/16 Aspirin 81 mg PO DAILY 11/05/16 Budesonide [Pulmicort Respules] 2 ml IH BID 11/05/16 Ferrous Sulfate 325 mg PO DAILY 11/05/16 Furosemide [Lasix] 40 mg PO DAILY 11/05/16 Lactobacillus Acidophilus [Acidophilus] 1 each PO TID 11/05/16 Nystatin [Nystop] 1 appl TP BID 11/05/16 Tiotropium [place] [Spiriva] 1 cap IH DAILY 11/05/16 Acetaminophen [Tylenol] 650 mg PO Q6H PRN #30 tablet 11/08/16 Bisacodyl [Dulcolax Suppository] 10 mg RC DAILY PRN #10 supp.rect 11/08/16 Sennosides/Docusate Sodium [Senokot-S] 2 tab PO HS #60 tablet 11/08/16 oxyCODONE HCL/ACETAMINOPHEN [Percocet 5 MG/325 MG] 1 tab PO Q6H PRN #30 tablet 11/08/16
== END 2016-11-08 13:40 ==
LOC: SUPCPDRO 06:21 → ER 06:21 → MS 10:07
PROVIDERS: ADMIT Internal Medicine; ATTEND Internal Medicine
DX: S32.592A Other specified fracture of left pubis, initial encounter for closed fracture (principal); W01.0XXA Fall on same level from slipping, tripping and stumbling without subsequent striking against object, initial encounter; Y92.013 Bedroom of single-family (private) house as the place of occurrence of the external cause; I48.0 Paroxysmal atrial fibrillation; J43.9 Emphysema, unspecified; M79.7 Fibromyalgia; E78.5 Hyperlipidemia, unspecified; I10 Essential (primary) hypertension; E03.9 Hypothyroidism, unspecified; Z87.891 Personal history of nicotine dependence
CPT/HCPCS: 36415; 73502; 73700; 80053; 85025; 85610; 94640; 96374; 96375; 96376; 97110; 97116; 97162; 97530; 99284; G0378; G8978; G8979; G8980

== ENCOUNTER 2017-04-28 14:23 | Observation (INO) | payer MEDICARE ==
[2017-04-28] MEDS ORDERED: ALBUTEROL SULFATE 2.5 MG/0.5 ML VIAL.NEB IH ONE ×2 (14:44→15:05)
[2017-04-28 15:01] LABS: Hematocrit 34.3 % (37.0-47.0); Mean Cell Volume 93.5 fl (78-100); Mean Corpuscular Hgb Conc 32.1 g/dl (32-36); Mean Platelet Volume 10.2 fl (6.0-9.5); Neutrophil # 2.2 K/mm3 (1.3-6.0); Neutrophil % 49.7 % (42-75.0); Platelet Count 144 K/mm3 (150-450); Red Blood Count 3.67 M/mm3 (4.2-5.4); Red Cell Distribution Width 13.9 % (11.5-14.0); White Blood Count 4.5 K/mm3 (4.0-10.5)
--- NOTE | 2017-04-28 15:13 | ERNOTE ---
Dyspnea - General Presenting Symptoms: shortness of breath Time Seen by Provider: 04/28/17 14:53 Source: patient Exam Limitations: no limitations - Immun/Allergies/Home Medications Immunizations: IMMUNIZATION HX Immunizations Up to Date Yes History of Influenza Vaccine Yes Hx Pneumococcal Vaccination Yes Allergies/Adverse Reactions: Allergies metoprolol Adverse Reaction (Intermediate, Verified 04/28/17 14:43) DIZZINESS, DYSPNEA pneumococcal vaccine [Pneumococcal Vaccine] Adverse Reaction (Mild, Verified 12/07 14:43) RASH AT INJECTION SITE Home Medications: HOME MEDICATIONS Citalopram Hydrobromide [Citalopram HBr] 40 mg PO DAILY 06/22/12 [Last Taken ] Lisinopril 40 mg PO DAILY 06/22/12 [Last Taken 10/08/15] Levothyroxine Sodium [Synthroid] 75 mcg PO DAILY 11/09/14 [Last Taken 10/08/15] Multivitamins [Multivitamin Bianca] 1 cap PO DAILY 11/09/14 [Last Taken 10/08/15 ] Diltiazem HCl [Cardizem Cd] 180 mg PO DAILY 07/31/16 [Last Taken Unknown] Beta-Carotene(A) W-C , E/Min [Ocuvite] 1 tab PO DAILY tablet 08/12/16 [Last Taken Unknown] Albuterol Sulfate [Ventolin Hfa] 2 puff IH Q4H 11/05/16 [Last Taken Unknown] Aspirin 81 mg PO DAILY 11/05/16 [Last Taken Unknown] Furosemide [Lasix] 40 mg PO DAILY 11/05/16 [Last Taken Unknown] Lactobacillus Acidophilus [Acidophilus] 1 each PO TID 11/05/16 [Last Taken Unknown] Nystatin [Nystop] 1 appl TP BID 11/05/16 [Last Taken Unknown] Tiotropium [place] [Spiriva] 1 cap IH DAILY 11/05/16 [Last Taken Unknown] Acetaminophen [Tylenol] 650 mg PO Q6H PRN #30 tablet 11/08/16 [Last Taken Unknown] Bisacodyl [Dulcolax Suppository] 10 mg RC DAILY PRN #10 supp.rect 11/08/16 [ Last Taken Unknown] Sennosides/Docusate Sodium [Senokot-S] 2 tab PO HS #60 tablet 11/08/16 [Last Taken Unknown] oxyCODONE HCL/ACETAMINOPHEN [Percocet 5 MG/325 MG] 1 tab PO Q6H PRN #30 tablet 11/08/16 [Last Taken Unknown] Atorvastatin Calcium [Lipitor] 20 mg PO DAILY 04/28/17 [Last Taken Unknown] - History of Present Illness Narrative: Patient has a history of COPD and remote lung cancer. She sees Dr Nam and has night time 2liter O2. Over the last 3-4 days she has had increasing shortness of breath and a dry cough. She was seen by Dr Kaba initially and was send to the ER for evaluation. O2 sats in the clinic were 96% on RA, in the ER 89% after transfer from wheelchair to bed. Patient does not have an official history of CHF but has been taking lasix prn, usually ends up taking it five times per week. She travelled recently and as it is inconvenient with bathroom access she has not taken it in five days, shortness of breath started prior to travel. Dr Kaba was concerned about possible PE. She also complains of general fatigue and decreased appetite Review of Systems - Review of Systems Constitutional: Present: weakness, fatigue, malaise. Absent: recent illness, fever EYE: Absent: vision changes ENT: Absent: nose congestion, sore throat Respiratory: Present: See HPI, shortness of breath, cough Cardiology: Absent: chest pain Gastrointestinal/Abdominal: Absent: nausea, vomiting, diarrhea, abdominal pain Genitourinary: Present: no symptoms reported Musculoskeletal: Absent: back pain Neurological: Present: weakness - generalized. Absent: headache - Patient's Past Medical History Patient History - Medical: Anemia, Depression, Fibromyalgia, Hypothyroidism, Obesity, Osteoarthritis Patient History - Cardiac/Respiratory: Atrial Fibrillation, CHF, COPD, Hypertension, Hyperlipidemia, Home O2 Use Patient History - Cancer: Lung, Cervical Patient History - Surgical Procedures: Appendectomy, Cataracts, Cholecystectomy , Colonoscopy, Hysterectomy, Total Hip Replacement, T & A, Other Patient History - Other: None LMP (females 10-50): post - Family History Mother Family History - Medical: , No pertinent hx Family History - Cardiac/Respiratory: CHF Family History - Cancer: No pertinent family hx Father Family History - Medical: , No pertinent hx Family History - Cardiac/Respiratory: No pertinent hx Family History - Cancer: Stomach - Social History Living Situations: home Abuse History: No History of abuse Psych History: Hx of Depression, Current tx/ever been on anti-depressants or anti-anxiety meds Smoking Status: Former smoker Alcohol Use: none Drug Use: none - Immunizations Immunizations Up to Date: Yes Hx Pneumococcal Vaccination: Yes History of Influenza Vaccine: Yes Physical Exam - Physical Exam General Appearance: Present: wd/wn, alert, no apparent distress, obese Head Exam: Present: normal inspection Eye Exam: Normal inspection: bilateral, PERRL: bilateral Ears, Nose, Throat: Present: normal ENT inspection, normal pharynx Respiratory: Present: no respiratory distress, normal breath sounds, no accessory muscle use, lungs clear Cardiovascular/Chest: Present: regular rate, rhythm, no murmur Gastrointestinal/Abdominal: Present: nontender, nondistended, soft Extremity Exam: Present: no edema Neurological Exam: Present: alert, oriented, normal mood/affect Skin Exam: Present: normal color, warm/dry ED Progress - Results and Orders Patient's Lab Results:: I have reviewed the patient's lab results. - Vital Signs Patient's Vital Signs:: I have reviewed the patient's vital signs. Vital Signs: Vital Signs 04/28/17 04/28/17 04/28/17 14:23 14:30 14:44 Temperature 36.8 C 36.8 C Pulse Rate 70 78 78 Respiratory 9 L 9 L Rate Blood Pressure 195/76 195/76 O2 Sat by Pulse 89 L 96 Oximetry - EKG EKG: NSR, nonspecific ST T wave changes EKG read: Interp. by me - X-Ray X-Ray #1 X-Ray: chest - pulmonary vascular congestions, trace pleural effusion, stable cardiomegalie Interpretation: Reviewed by me - CT/Ultrasound CT/Ultrasound Narrative: CT chest: no PE, prominent lymph nodes concerning for cancer recurrence recommend PET scan - Progress/Reassessment Chief Complaint: Dyspnea Progress Note-Subjective: 04/28/17 15:12 O2sat 93-94% on RA at rest 04/28/17 17:23 discussed results with patient and family, offered admission as I am concerned about giving patient lasix now and her having to go to the bathroom all night. She is increased fall risk ( fell in September when using commode and sustained pelvic fracture) 04/28/17 17:[address] Hutchison, okay to admit for observation for UTI and CHF exacerbation Departure Clinical Impression: UTI (urinary tract infection) Qualifiers: Urinary tract infection type: acute cystitis Hematuria presence: without hematuria Qualified Code(s): N30.00 - Acute cystitis without hematuria CHF exacerbation Qualifiers: Congestive heart failure type: systolic Qualified Code(s): I50.23 - Acute on chronic systolic (congestive) heart failure - Departure Disposition: [facility] Condition: Stable
[2017-04-28 15:22] LABS: ALT 67 U/L (19-67); AST 31 U/L (0-48); Albumin * 3.7 gm/dl (3.4-5.0); Alkaline Phosphatase * 102 U/L (50-170); Anion Gap 10.5 mmol/L (6.8-13.8); BNP * 3065 pg/mL (5-550); BUN/Creatinine Ratio 16.9 (9.0-21.6); Bilirubin, Total 0.9 mg/dL (0.0-1.1); Blood Urea Nitrogen 12 mg/dL (3-23); Ca. Corrected For Albumin 9.1 mg/dL (8.4-10.2); Calcium * 9.2 mg/dL (7.9-10.9); Carbon Dioxide 29.4 mmol/L (24-32.6); Chloride 107 mmol/L (97-106); Glucose * 94 mg/dL (70-110); Potassium 3.9 mmol/L (3.4-4.6); Sodium 143 mmol/L (132-142); Total Protein 7.2 gm/dL (6.2-8.2); Troponin I Less than 0.017 ng/ml (0.00-0.10)
[2017-04-28 16:55] LABS: Urine Bilirubin Negative (NEGATIVE); Urine Ketone 5 mg/dL (NEGATIVE); Urine Protein Negative (NEGATIVE); Urine Specific Gravity 1.015 SP.GR. (1.005-1.010); Urine Urobilinogen Normal (NORMAL); Urine pH 6.5 pH (5.0-7.0)
[2017-04-28 17:07] LABS: Urine Appearance Slightly Cloudy; Urine Bacteria 4+; Urine Blood 5 /ul (NEGATIVE); Urine Color Yellow; Urine Nitrite Positive (NEGATIVE); Urine RBC TRACE /hpf (0-5); Urine WBC 0-5 /hpf (0-5)
[2017-04-28] MEDS ORDERED: FUROSEMIDE 10 MG/ML VIAL IV ONE ×2 (17:21→20:01)
[2017-04-28] MEDS ORDERED: FUROSEMIDE 10 MG/ML VIAL ONE (17:30)
[2017-04-28] MEDS ORDERED: NITROFURANTOIN/NITROFURAN MAC 100 MG CAPSULE ONE (17:45)
[2017-04-28] MEDS: NITROFURANTOIN/NITROFURAN MAC 100 MG CAPSULE PO SCH ×2 (17:51→21:03)
[2017-04-28] MEDS ORDERED: POTASSIUM CHLORIDE 20 MEQ TABLET.SA PO ONE (20:02)
[2017-04-28] MEDS ORDERED: ACETAMINOPHEN 325 MG TABLET PO PRN (20:03)
[2017-04-28] MEDS ORDERED: BISACODYL 10 MG SUPP.RECT RC PRN (20:03)
[2017-04-28] MEDS ORDERED: oxyCODONE HCL/ACETAMINOPHEN 1 TAB TABLET PO PRN (20:03)
[2017-04-28] MEDS ORDERED: ATORVASTATIN CALCIUM 40 MG TABLET PO SCH (20:15)
[2017-04-28] MEDS ORDERED: ALBUTEROL SULFATE 60 PUFF INHALER IH SCH (20:15)
[2017-04-28 20:40] LABS: Urine Bilirubin Negative (NEGATIVE); Urine Blood Negative /ul (NEGATIVE); Urine Ketone Negative (NEGATIVE); Urine Nitrite Negative (NEGATIVE); Urine Protein Negative (NEGATIVE); Urine Urobilinogen Normal (NORMAL)
--- NOTE | 2017-04-28 20:42 | HP ---
Chief Complaint - Chief Complaint Date of Service: 04/28/17 Time of Service: 19:55 Chief Complaint: " SOB, Weakness". Source of HPI- Pt; reliable, ERP report/ notes. History of Present Illness: Mrs. Bergeron is a 76-yr-old WF pt of Dr. Umair Crawford with a PMH of: COPD, Depression, Fibromyalgia, HTN,HLD, Lung Ca & Osteoarthritis. Pt states that she was out of town visiting family and therefore did not take her Lasix doses for fear of frequent urination. She is normally on Lasix 40 mg po daily and has not taken it for 4 days. She states that she is usually SOB with exertion, but today, she felt dyspneic even at rest and was weak. She is chronically on 2 L oxygen at night and as needed during the day due to her COPD. She was seen at the clinic and was sent to the ED for more work-up. The CXR had findings concerning for CHF and she had BNP of 3065. All other laboratory studies involving CBC, BMP & Troponin were unremarkable. She received Lasix IV 40 mg at the ED. She will be admitted under observation status for continued IV diuretics and electrolyte replacement. - Patient's Past Medical History Patient History - Medical: Anemia, Depression, Fibromyalgia, Hypothyroidism, Obesity, Osteoarthritis Patient History - Cardiac/Respiratory: Atrial Fibrillation, CHF, COPD, Hypertension, Hyperlipidemia, Home O2 Use Patient History - Cancer: Lung, Cervical Patient History - Surgical Procedures: Appendectomy, Cataracts, Cholecystectomy , Colonoscopy, Hysterectomy, Total Hip Replacement, T & A, Other Patient History - Other: None LMP (females 10-50): post - Family History Mother Family History - Medical: , No pertinent hx Family History - Cardiac/Respiratory: CHF Family History - Cancer: No pertinent family hx Father Family History - Medical: , No pertinent hx Family History - Cardiac/Respiratory: No pertinent hx Family History - Cancer: Stomach - Social History Living Situations: home Abuse History: No History of abuse Psych History: Hx of Depression, Current tx/ever been on anti-depressants or anti-anxiety meds Smoking Status: Former smoker Have you smoked in the past 12 months: No Do you dip or chew tobacco: No Smoking Stop Date: 06/23/84 Alcohol Use: none Drug Use: none - Immunizations Immunizations Up to Date: Yes Hx Pneumococcal Vaccination: Yes History of Influenza Vaccine: Yes Review Of Systems (GEN) - Review of Systems Generalized/Overall Review: Present: Weakness. Absent: Chills, Fever, Fatigue EENTM: Absent: Eye Pain, Blurred Vision Respiratory: Present: Cough, Shortness of Breath. Absent: Orthopnea, Stridor Cardiac: Absent: Chest Pain, Edema, Palpitations, Syncope Abdominal: Absent: Nausea, Vomiting, Hematemesis Genitourinary: Absent: Burning, Itching, Urgency Musculoskeletal: Absent: Joint Pain, Back Pain, Joint Swelling Neurological: Absent: Headache, Anxiety, Depressed, Emotional Problems Skin: Absent: Dryness, Lesions, Rash Endocrine: Absent: Intolerance to Cold, Flushing Misc: All systems neg except as marked Immunizations: IMMUNIZATION HX Immunizations Up to Date Yes History of Influenza Vaccine Yes Hx Pneumococcal Vaccination Yes Allergies/Adverse Reactions: Allergies Allergy/AdvReac Type Severity Reaction Status Date / Time metoprolol AdvReac Intermediate DIZZINESS, Verified 04/28/17 14:43 DYSPNEA pneumococcal vaccine AdvReac Mild RASH AT Verified 04/28/17 14:43 [Pneumococcal Vaccine] INJECTION SITE Home Medications: HOME MEDICATIONS Citalopram Hydrobromide [Citalopram HBr] 40 mg PO DAILY 06/22/12 [Last Taken ] Lisinopril 40 mg PO DAILY 06/22/12 [Last Taken 10/08/15] Levothyroxine Sodium [Synthroid] 75 mcg PO DAILY 11/09/14 [Last Taken 10/08/15] Multivitamins [Multivitamin Bianca] 1 cap PO DAILY 11/09/14 [Last Taken 10/08/15 ] Diltiazem HCl [Cardizem Cd] 180 mg PO DAILY 07/31/16 [Last Taken Unknown] Beta-Carotene(A) W-C , E/Min [Ocuvite] 1 tab PO DAILY tablet 08/12/16 [Last Taken Unknown] Albuterol Sulfate [Ventolin Hfa] 2 puff IH Q4H 11/05/16 [Last Taken Unknown] Aspirin 81 mg PO DAILY 11/05/16 [Last Taken Unknown] Furosemide [Lasix] 40 mg PO DAILY 11/05/16 [Last Taken Unknown] Lactobacillus Acidophilus [Acidophilus] 1 each PO TID 11/05/16 [Last Taken Unknown] Nystatin [Nystop] 1 appl TP BID 11/05/16 [Last Taken Unknown] Tiotropium [place] [Spiriva] 1 cap IH DAILY 11/05/16 [Last Taken Unknown] Acetaminophen [Tylenol] 650 mg PO Q6H PRN #30 tablet 11/08/16 [Last Taken Unknown] Bisacodyl [Dulcolax Suppository] 10 mg RC DAILY PRN #10 supp.rect 11/08/16 [ Last Taken Unknown] Sennosides/Docusate Sodium [Senokot-S] 2 tab PO HS #60 tablet 11/08/16 [Last Taken Unknown] oxyCODONE HCL/ACETAMINOPHEN [Percocet 5 MG/325 MG] 1 tab PO Q6H PRN #30 tablet 11/08/16 [Last Taken Unknown] Atorvastatin Calcium [Lipitor] 20 mg PO DAILY 04/28/17 [Last Taken Unknown] Budesonide/Formoterol Fumarate [Symbicort 160-4.5 Mcg Inhaler] 2 appl IH BID 12/07 [Last Taken Unknown] Exam - Exam Vital Signs: Vital Signs - Last Taken Temp 36.6 C 04/28/17 18:41 Pulse 69 04/28/17 18:41 Resp 20 04/28/17 18:41 BP 154/44 04/28/17 18:41 Pulse Ox 94 04/28/17 18:41 Constitutional: Present: Alert, Oriented x3, Cooperative, No distress ENT Exam: Present: normal ENT inspection. Absent: nasal drainage, pharyngeal erythema Eye Exam: bilateral eye: normal inspection, PERRL Neck: Present: non-tender, full range of motion, supple Back Exam: Present: normal inspection, no CVA tenderness Breasts: Present: Exam deferred Respiratory: Present: rales - RT base, No wheezing Cardiovascular/Chest: Present: normal peripheral pulses, regular rate, rhythm, no chest tenderness, no edema Abdomen: Present: Normal bowel sounds, soft, nontender /Rectal: Present: Exam deferred Extremity: Present: non-tender, normal inspection, no pedal edema Skin Exam: Present: warm/dry, no cyanosis Lymphatic: Present: no adenopathy Neurologic: Present: alert, normal mood/affect, oriented x 3 Appearance: Present: appropriate appearance, appropriate insight Eye contact: Present: cooperative, good eye contact, normal speech Thoughts: Present: normal thought pattern, no apparent hallucination Diagnostic Studies: Laboratory Results WBC 4.5 K/mm3 (4.0-10.5) 04/28/17 14:44 RBC 3.67 M/mm3 (4.2-5.4) L 04/28/17 14:44 Hgb 11.0 gm/dL (12.5-16.0) L 04/28/17 14:44 Hct 34.3 % (37.0-47.0) L 04/28/17 14:44 MCV 93.5 fl (78-100) 04/28/17 14:44 MCH 30.0 pg (27-31) 04/28/17 14:44 MCHC 32.1 g/dl (32-36) 04/28/17 14:44 RDW 13.9 % (11.5-14.0) 04/28/17 14:44 Plt Count 144 K/mm3 (150-450) L 04/28/17 14:44 MPV 10.2 fl (6.0-9.5) H 04/28/17 14:44 Immature Gran % (Auto) 4.20 % (0.001-0.429) H 04/28/17 14:44 Immature Gran # (Auto) 0.19 K/mm3 (0.000-0.0310) H 04/28/17 14:44 Neutrophils % 49.7 % (42-75.0) 04/28/17 14:44 Lymphocytes % 17.7 % (20-51) L 04/28/17 14:44 Monocytes % 27.3 % (0.0-9) H 04/28/17 14:44 Eosinophils % 0.7 % (0.0-3.0) 04/28/17 14:44 Basophils % 0.4 % (0.0-1.0) 04/28/17 14:44 Nucleated RBC % 0.0 k/mm3 (0-1) 04/28/17 14:44 Neutrophils # 2.2 K/mm3 (1.3-6.0) 04/28/17 14:44 Lymphocytes # 0.8 k/mm3 (1.5-3.5) L 04/28/17 14:44 Monocytes # 1.2 k/mm3 (0.0-1.0) H 04/28/17 14:44 Eosinophils # 0.0 k/mm3 (0.0-0.7) 04/28/17 14:44 Absolute Basophils 0.0 k/mm3 (0.0-0.1) 04/28/17 14:44 D-Dimer 0.69 mg/L (0.19-0.49) H 04/28/17 14:44 Sodium 143 mmol/L (132-142) H 04/28/17 14:44 Plasma Sodium 143 mmol/L (130-142) H 04/28/17 14:44 Potassium 3.9 mmol/L (3.4-4.6) 04/28/17 14:44 Chloride 107 mmol/L (97-106) H 04/28/17 14:44 Carbon Dioxide 29.4 mmol/L (24-32.6) 04/28/17 14:44 Anion Gap 10.5 mmol/L (6.8-13.8) 04/28/17 14:44 BUN 12 mg/dL (3-23) 04/28/17 14:44 Creatinine 0.71 mg/dL (0.4-1.4) 04/28/17 14:44 Est GFR (Non-Af Amer) 85 mL/min (60-130) 04/28/17 14:44 BUN/Creatinine Ratio 16.9 (9.0-21.6) 04/28/17 14:44 Random Glucose 94 mg/dL (70-110) 04/28/17 14:44 Calcium 9.2 mg/dL (7.9-10.9) 04/28/17 14:44 Calcium Adj for Albumin 9.1 mg/dL (8.4-10.2) 04/28/17 14:44 Total Bilirubin 0.9 mg/dL (0.0-1.1) 04/28/17 14:44 AST 31 U/L (0-48) 04/28/17 14:44 ALT 67 U/L (19-67) 04/28/17 14:44 Alkaline Phosphatase 102 U/L (50-170) 04/28/17 14:44 Troponin I Less than 0.017 ng/ml (0.00-0.10) 04/28/17 14:44 B-Natriuretic Peptide 3065 pg/mL (5-550) H 04/28/17 14:44 Total Protein 7.2 gm/dL (6.2-8.2) 04/28/17 14:44 Albumin 3.7 gm/dl (3.4-5.0) 04/28/17 14:44 Urine Color Yellow 04/28/17 16:48 Urine Appearance Slightly cloudy 04/28/17 16:48 Urine pH 6.5 pH (5.0-7.0) 04/28/17 16:48 Ur Specific [place] 1.015 SP.GR. (1.005-1.010) 04/28/17 16:48 Urine Protein Negative mg/dL (NEGATIVE) 04/28/17 16:48 Urine Glucose (UA) Negative mg/dL (NEGATIVE) 04/28/17 16:48 Urine Ketones 5 mg/dL (NEGATIVE) 04/28/17 16:48 Urine Blood 5 /ul (NEGATIVE) H 04/28/17 16:48 Urine Nitrate Positive (NEGATIVE) H 04/28/17 16:48 Urine Bilirubin Negative mg/dl (NEGATIVE) 04/28/17 16:48 Urine Urobilinogen Normal EU/dl (NORMAL) 04/28/17 16:48 Ur Leukocyte Esterase Negative /ul (NEGATIVE) 04/28/17 16:48 Urine RBC Trace /hpf (0-5) 04/28/17 16:48 Urine WBC 0-5 /hpf (0-5) 04/28/17 16:48 Ur Epithelial Cells Trace /hpf (0-5) 04/28/17 16:48 Urine Bacteria 4+ (NONE) H 04/28/17 16:48 Urine Culture Comments Culture to follow 04/28/17 16:48 Assessment/Plan - Assessment/Plan (1) CHF exacerbation Assessment: Pt did not take her home diuretics doses for a period of nearly 4 days and presented with SOB at rest and weakness. CXR showed increased pulmonary vascular congestion- Received 40 mg at the ED & given additional 80 mg while on the floor. Monitor strict I/Os, and electrolytes in am. Anticipate discharge tomorrow. Problem: Acute Qualifiers: Congestive heart failure type: systolic Qualified Code(s): I50.23 - Acute on chronic systolic (congestive) heart failure (2) COPD (chronic obstructive pulmonary disease) Assessment: Stable- No wheezing, increased coughing, She is chronically on Oxygen 2 l at night and as needed during the day. Continue Spiriva & Symbicort. Problem: Chronic Qualifiers: (3) Depression Assessment: Stable- On celexa. Problem: Chronic (4) HLD (hyperlipidemia) Assessment: Stable on Lipitor, Aspirin. Problem: Chronic Qualifiers: (5) HTN (hypertension) Assessment: Stable- On Lisinopril Problem: Chronic Qualifiers: (6) Fibromyalgia Problem: Chronic
[2017-04-28] MEDS: NYSTATIN 15 APPL BTL TP SCH (20:47)
[2017-04-28] MEDS ORDERED: SENNOSIDES/DOCUSATE SODIUM 1 TAB TABLET PO SCH (21:00)
[2017-04-28 21:07] LABS: Urine Amorphous Sediment Moderate - 2+ (NONE-FEW); Urine Appearance Cloudy; Urine Bacteria 1+; Urine Color Yellow; Urine RBC None Seen /hpf (0-5); Urine WBC None Seen /hpf (0-5)
[2017-04-28] MEDS: ALBUTEROL SULFATE 2.5 MG/0.5 ML VIAL.NEB IH SCH ×2 (21:23→22:11)
[2017-04-29] MEDS: ALBUTEROL SULFATE 2.5 MG/0.5 ML VIAL.NEB IH SCH ×2 (02:17→06:05)
[2017-04-29] MEDS ORDERED: LEVOTHYROXINE SODIUM 75 MCG TABLET PO SCH (06:00)
[2017-04-29 06:22] LABS: Anion Gap 13.1 mmol/L (6.8-13.8); BUN/Creatinine Ratio 14.9 (9.0-21.6); Calcium * 9.5 mg/dL (7.9-10.9); Carbon Dioxide 32.2 mmol/L (24-32.6); Estimated Creat Clear 51.8; Potassium 3.3 mmol/L (3.4-4.6)
[2017-04-29 07:32] VITALS: BP 130/80
--- NOTE | 2017-04-29 08:21 | DS ---
(1) CHF exacerbation Diagnosis(s): she promises to take her lasix daily. Problem: Acute Qualifiers: Congestive heart failure type: systolic Qualified Code(s): I50.23 - Acute on chronic systolic (congestive) heart failure (2) Pulmonary nodule Diagnosis(s): will schedule a PET scan with her follow up. Problem: Acute (3) UTI (urinary tract infection) Problem: Acute Qualifiers: Urinary tract infection type: acute cystitis Hematuria presence: without hematuria Qualified Code(s): N30.00 - Acute cystitis without hematuria (4) HLD (hyperlipidemia) Problem: Acute (5) COPD (chronic obstructive pulmonary disease) Problem: Chronic Qualifiers: (6) HTN (hypertension) Problem: Chronic Qualifiers: (7) Hypothyroidism (acquired) Problem: Chronic Description of Stay: Carrol Bergeron is a 76-yr-old WF, with a PMH of: COPD, Depression, Fibromyalgia, HTN ,HLD, Lung Ca & Osteoarthritis who was admitted on 04/28/2017 because of shortness of breath.. Pt stated that she was out of town visiting family and therefore did not take her Lasix doses for fear of frequent urination. She is normally on Lasix 40 mg po daily and has not taken it for 4 days. She states that she is usually SOB with exertion, but today, she felt more dyspneic even at rest and was weak. She is chronically on 2 L oxygen at night and as needed during the day due to her COPD. She was seen at the clinic and was sent to the ED for more work-up. The CXR had findings concerning for CHF and she had BNP of 3065. All other laboratory studies involving CBC, BMP & Troponin were unremarkable. She received Lasix IV 40 mg at the ED. She was given 80 mg of IV lasix in the floor. She diuresed a lot. She says she urinated q 2 hours and only stopped around 3 a.m. Her weight is down by 5 kg. She promises to take her lasix daily now. We will schedule her PET scan when she follows up in 1 week for a possible new pulmonary nodule. Procedures Performed: none Discharge Disposition: Home self care Disposition: Home self-care Condition: Stable Discharge Activity: Activity as tolerated Discharge Diet: Low salt Referrals: Umair Crawford MD [Primary Care Provider] - Problem Oriented Discharge Instructions to Patient/Family: Urinary Tract Infection, Adult, [id number], Heart Failure, [id number], CHF Patient Instructions Additional Patient Instructions (free text): TCM at discharge with Luisa Sloan Follow up with Dr. Crawford 05/08 at 2:15 Prescriptions (Any new or edited meds): Nitrofurantoin/Nitrofuran Mac [Macrobid] 100 mg PO BID 3 Days #6 capsule Potassium Chloride [Klor-Con 10] 10 meq PO DAILY #30 tab Complete Home Medications List: Complete Home Medication List: Citalopram Hydrobromide [Citalopram HBr] 40 mg PO DAILY 06/22/12 Lisinopril 40 mg PO DAILY 06/22/12 Levothyroxine Sodium [Synthroid] 75 mcg PO DAILY 11/09/14 Multivitamins [Multivitamin Bianca] 1 cap PO DAILY 11/09/14 Diltiazem HCl [Cardizem Cd] 180 mg PO DAILY 07/31/16 Beta-Carotene(A) W-C , E/Min [Ocuvite] 1 tab PO DAILY tablet 08/12/16 Albuterol Sulfate [Ventolin Hfa] 2 puff IH Q4H 11/05/16 Aspirin 81 mg PO DAILY 11/05/16 Furosemide [Lasix] 40 mg PO DAILY 11/05/16 Lactobacillus Acidophilus [Acidophilus] 1 each PO TID 11/05/16 Nystatin [Nystop] 1 appl TP BID 11/05/16 Tiotropium [place] [Spiriva] 1 cap IH DAILY 11/05/16 Acetaminophen [Tylenol] 650 mg PO Q6H PRN #30 tablet 11/08/16 Bisacodyl [Dulcolax Suppository] 10 mg RC DAILY PRN #10 supp.rect 11/08/16 Sennosides/Docusate Sodium [Senokot-S] 2 tab PO HS #60 tablet 11/08/16 oxyCODONE HCL/ACETAMINOPHEN [Percocet 5 MG/325 MG] 1 tab PO Q6H PRN #30 tablet 11/08/16 Atorvastatin Calcium [Lipitor] 20 mg PO DAILY 04/28/17 Budesonide/Formoterol Fumarate [Symbicort 160-4.5 Mcg Inhaler] 2 appl IH BID 12/07 Nitrofurantoin/Nitrofuran Mac [Macrobid] 100 mg PO BID 3 Days #6 capsule Potassium Chloride [Klor-Con 10] 10 meq PO DAILY #30 tab 04/29/17
[2017-04-29] MEDS: NITROFURANTOIN/NITROFURAN MAC 100 MG CAPSULE PO SCH (08:27)
[2017-04-29] MEDS: NYSTATIN 15 APPL BTL TP SCH (08:27)
[2017-04-29] MEDS ORDERED: POTASSIUM CHLORIDE 20 MEQ TABLET.SA PO ONE (08:30)
[2017-04-29] MEDS ORDERED: LACTOBACILLUS ACIDOPHILUS 100 CAP BTL PO SCH (09:00)
[2017-04-29] MEDS ORDERED: CITALOPRAM HYDROBROMIDE 20 MG TABLET PO SCH (09:00)
[2017-04-29] MEDS ORDERED: FUROSEMIDE 40 MG TABLET PO SCH (09:00)
[2017-04-29] MEDS ORDERED: ASPIRIN 81 MG TAB.CHEW PO SCH (09:00)
[2017-04-29] MEDS ORDERED: DILTIAZEM HCL 180 MG CAP.SR.24H PO SCH (09:00)
[2017-04-29] MEDS ORDERED: FLUTICASONE/SALMETEROL 14 PUFF DISK.W.DEV IH SCH (09:00)
[2017-04-29] MEDS ORDERED: BETA-CAROTENE(A) W-C , E/MIN 1 TAB TABLET PO SCH (09:00)
[2017-04-29] MEDS ORDERED: TIOTROPIUM BROMIDE 5 CAP INHALER IH SCH (09:00)
[2017-04-29] MEDS ORDERED: MULTIVITAMINS 1 CAP CAPSULE PO SCH (09:00)
[2017-04-29] MEDS ORDERED: LISINOPRIL 40 MG TABLET PO SCH (09:00)
[2017-04-29] MEDS ORDERED: ROSUVASTATIN CALCIUM 10 MG TABLET PO SCH (21:00)
== END 2017-04-29 10:11 | disposition home or self-care (01) ==
LOC: ER 14:23 → MS 17:33
PROVIDERS: ADMIT Family Medicine; ATTEND Internal Medicine
DX: I50.23 Acute on chronic systolic (congestive) heart failure (principal); N39.0 Urinary tract infection, site not specified; B96.20 Unspecified Escherichia coli [E. coli] as the cause of diseases classified elsewhere; J44.9 Chronic obstructive pulmonary disease, unspecified; Z87.891 Personal history of nicotine dependence; R91.1 Solitary pulmonary nodule; I10 Essential (primary) hypertension; E03.9 Hypothyroidism, unspecified; M79.7 Fibromyalgia; F32.9 Major depressive disorder, single episode, unspecified; Z68.37 Body mass index [BMI] 37.0-37.9, adult; E66.9 Obesity, unspecified
CPT/HCPCS: 36415; 71020; 71275; 80048; 80053; 81001; 83880; 84484; 85025; 85379; 87077; 87086; 87186; 93005; 94640; 94760; 96374; 99284; G0378